=== PATIENT | male | born 1970 | race African-American/Black ===

== ENCOUNTER 2021-03-03 19:35 | Inpatient (IN) | payer MEDICARE, OTHER ==
[~2021-03-03] VITALS: Ht 182.9 cm; Wt 83.5 kg
--- NOTE | 2021-03-03 19:37 | NUR ---
PT RECEIVED FROM EMS. ON FULL CARDIAC ARREST, CPR AND BAGGING IS ONGOING PT WAS BEING ROLLED IN.
--- NOTE | 2021-03-03 19:40 | NUR ---
IV STARTED R HABD 20G
--- NOTE | 2021-03-03 19:41 | NUR ---
EPINEPHRINE 1MG IVP AND SODIUM BICARB 1 AMP IVP R HAND 20G
--- NOTE | 2021-03-03 19:42 | NUR ---
IV LINE ON RFA 18G
--- NOTE | 2021-03-03 19:43 | NUR ---
PULSE CHECK. PULSE APPRECIATED. ROSC. CPR NOT CONTINUED
--- NOTE | 2021-03-03 19:45 | NUR ---
MD SUCCESSFULLY INTUBATED PT WITH ET 7.5, 23 @ LIP, POSITIVE COLOR CHANGE FOR CO2 RETURN
--- NOTE | 2021-03-03 19:45 | NUR ---
RT NOTE LATE ENTRY: Upon arrival at bedside, Md orally intubated via ETT sz #7.5, ETT secured at 23CM at the lipline. Clear bilateral Breath sounds heard on auscultation. Color changed confirmed via CO2 detector. [facility] on noted settings per md orders. Sx'd for thick mod amt of pink tinged secretions. Alarms are set and audible. Vent plugged into red outlet. Ambu bag bedside. ABG to be taken. Waiting for Chest X ray results. Will continue to monitor closely Addendum: 03/03/21 at 2045 by GIGI QUINONES RT Amended: Links added.
--- NOTE | 2021-03-03 19:46 | NUR ---
SODIUM BICARB GIVEN IVP
--- NOTE | 2021-03-03 19:47 | NUR ---
CALCIUM CHLORIDE 1000MG IV STARTED ENDTIME 2002
--- NOTE | 2021-03-03 19:50 | NUR ---
VS. HR-81, BP-179/76, RR-18, O2 SAT 100%
--- NOTE | 2021-03-03 19:52 | NUR ---
XRAY AT BEDSIDE
[2021-03-03] MEDS ORDERED: ALBUTEROL FS 2.5 MG/3 ML VIAL.NEB NEB ONE (20:00)
[2021-03-03] MEDS ORDERED: CALCIUM CHLORIDE 1,000 MG/10 ML DISP.SYRIN IV ONE (20:00)
[2021-03-03] MEDS ORDERED: SODIUM BICARBONATE SYR 50 MEQ/50 ML DISP.SYRIN IV ONE ×3 (20:00→21:00)
[2021-03-03] MEDS ORDERED: DEXTROSE 50%-WATER 50 ML DISP.SYRIN IV ONE (20:00)
[2021-03-03] MEDS ORDERED: INSULIN REGULAR, HUMAN 100 UNIT/ML 10 ML VIAL IV ONE (20:00)
--- NOTE | 2021-03-03 20:00 | NUR ---
ET TUBE ADVANCED TO 24@ LIP PER MD ORDERED TO RT.
--- NOTE | 2021-03-03 20:00 | NUR ---
RT NOTE Late Entry: ETT advance to 24CM at the lipline per md orders. Will continue to monitor. Addendum: 03/03/21 at 2047 by GIGI QUINONES RT Amended: Links added.
--- NOTE | 2021-03-03 20:00 | NUR ---
VENT SETTING: AC18, VT550, 02 100%, +5 PEEP
[2021-03-03] MEDS ORDERED: PROPOFOL 100 ML ONE ×2 (20:03→22:52)
[2021-03-03] MEDS ORDERED: INSULIN REGULAR, HUMAN 100 UNIT/ML 10 ML VIAL ONE (20:03)
[2021-03-03] MEDS ORDERED: DEXTROSE 50%-WATER 50 ML DISP.SYRIN ONE (20:03)
[2021-03-03 20:11] LABS: BASOPHILS # (AUTO) 0.1 K/uL (0.0-0.2); BASOPHILS % (AUTO) 1.4 % (0.0-2.0); EOSINOPHILS % (AUTO) 4.7 % (0.0-6.0); HEMATOCRIT 25 % (39-51); LYMPHOCYTES # (AUTO) 3.5 K/uL (0.8-4.8); LYMPHOCYTES % (AUTO) 45.4 % (20.0-44.0); MEAN CORPUSCULAR HGB CONC 32 g/dl (31.0-36.0); MEAN CORPUSCULAR VOLUME 88 fL (80-96); MONOCYTES # (AUTO) 0.5 K/uL (0.1-1.30); MONOCYTES % (AUTO) 6.1 % (2.0-12.0); NEUTROPHILS # (AUTO) 3.3 K/uL (1.8-8.9); NEUTROPHILS % (AUTO) 42.4 % (43.0-81.0); PLATELET COUNT (AUTO) 290 K/uL (150-450); RED BLOOD CELL COUNT(AUTO) 2.85 MIL/uL (4.5-6.0); WHITE BLOOD COUNT (AUTO) 7.8 K/uL (4.3-11.0)
--- NOTE | 2021-03-03 20:15 | NUR ---
PROPOFOL STARTED PER MD ORDERED
--- NOTE | 2021-03-03 20:17 | NUR ---
D50 IVP X 1 DOSE
--- NOTE | 2021-03-03 20:18 | NUR ---
INSULIN 8 UNIT GIVEN IVP
--- NOTE | 2021-03-03 20:20 | NUR ---
ROBINSON FROM HOME TO ER BED 5. RECEIVED ON FULL CARDIAC ARREST WITH EMS DOING CPR AND BAGGING PT WAS BEING ROLLED IN. PT WAS NON RESPONSIVE. PER EMS REPORT, PT CALLED FOR SOB. PT WAS REPORTED NOT HAVING HIS DIALYSIS FOR THE PAST WEEK. PT THEN CODED ENROUTE TO HOSPITAL PER EMS. CONTINUED RESUSCITATION PER ACLS PROTOCL. MD WAS AT BEDSIDE.
--- NOTE | 2021-03-03 20:20 | NUR ---
PROPOFOL INCREASED TO 15MCG/KG/MIN. PT IS WAKING UP
[2021-03-03 20:24] LABS: ABG BASE EXCESS -10.6 mmol/L; ABG OXYGEN SATURATION 98.2 % (92.0-98.5); ABG PCO2 41.5 mmHg (35.0-45.0); ABG PH 7.215 (7.350-7.450); ABG PO2 196.1 mmHg (75.0-100.0); AaDO2 475.4 mmHg; COHb 0.5 % (0.5-1.5); MetHb 0.2 % (0.0-1.5); O2Hb 97.5 % (94.0-97.0); PEEP,BG 5 cm H2O; SITE, ABG Right Radial; VENT MODE, BG AC 18 550 100% +5; VT, ABG 550 mL
--- NOTE | 2021-03-03 20:25 | NUR ---
PROPOFOL INCREASED TO 20MCG/KG/MIN - PT IS WAKING
[2021-03-03] MEDS ORDERED: PROPOFOL 1,000 MG/100 ML BOTTLE IV ONE (20:30)
--- NOTE | 2021-03-03 20:30 | NUR ---
PROPOFOL INCREASED TO 25MCG/KG/MIN - PT IS AWAKENING AND RESTLESS
--- NOTE | 2021-03-03 20:30 | NUR ---
RT NOTE Late Entry: ABG taken and Results given to MD. Vent changes per md orders. ABG to be taken within 1 hr per md orders. Will continue to monitor. Addendum: 03/03/21 at 2047 by GIGI QUINONES RT Amended: Links added.
[2021-03-03 20:33] LABS: ALANINE AMINOTRANSFERASE 9 U/L (12-78); ALBUMIN 2.9 g/dL (3.4-5.0); ALKALINE PHOSPHATASE 202 U/L (46-116); ASPARTATE AMINOTRANSFERASE 26 U/L (15-37); BILIRUBIN,DIRECT 0.2 mg/dL (0.0-0.2); BILIRUBIN,TOTAL 0.4 mg/dL (0.2-1.0); CALCIUM, SERUM 9.7 mg/dL (8.5-10.1); CARBON DIOXIDE 17 mmol/L (21-32); CHLORIDE 100 mmol/L (98-107); GLUCOSE 172 mg/dL (74-106); SODIUM SERUM 139 mmol/L (136-145); TOTAL PROTEIN, SERUM 8.4 g/dL (6.4-8.2)
--- NOTE | 2021-03-03 20:35 | NUR ---
PROPOFOL INCREASED TO 35MCG/MIN/KG - PT IS RESTLESS AND AWAKENING
--- NOTE | 2021-03-03 20:38 | NUR ---
NEW VENT SETTING AC18, VT 600, O2 100%, +5PEEP - VT INCREASED FROM 550 TO 600
[2021-03-03 20:39] LABS: CREATININE 20.1 mg/dL (0.6-1.3); POTASSIUM 7.9 mmol/L (3.5-5.1); UREA NITROGEN, BLOOD 111 mg/dL (7-18)
--- NOTE | 2021-03-03 20:45 | NUR ---
PROPOFOL INCREASED TO 45MCG/KG/MIN - PT IS AWAKENING AND RESTLESS
--- NOTE | 2021-03-03 20:55 | NUR ---
CONTACTED SEGMENTAL WALL INSTALLER REGARDING PT AND GAVE THE CALL TO ER MD. DOCTOR TO DOCTOR IN PROGRESS.
--- NOTE | 2021-03-03 20:57 | NUR ---
ER TALKING TO DR. MARCOS REGARDING PT ADMISSION.
--- NOTE | 2021-03-03 21:00 | NUR ---
PROPOFOL INCREASED TO 55MCG/KG/MIN - PT IS AWAKKENING
--- NOTE | 2021-03-03 21:10 | NUR ---
NO NEED FOR INDWELLING CATH PER
[2021-03-03] MEDS ORDERED: SODIUM BICARBONATE SYR 50 MEQ/50 ML DISP.SYRIN ONE (21:12)
[2021-03-03] MEDS ORDERED: SODIUM POLYSTYRENE SULFONATE 15 G/60 ML BOTTLE PO ONE (21:30)
[2021-03-03] MEDS ORDERED: ZOLPIDEM TARTRATE 5 MG TABLET PO PRN (21:30)
[2021-03-03] MEDS ORDERED: Z GUARD REMEDY 2 OZ OINT TP PRN (21:30)
[2021-03-03] MEDS ORDERED: ACETAMINOPHEN 325 MG TABLET PO PRN (21:30)
[2021-03-03] MEDS ORDERED: MAG HYDROX/AL HYDROX/SIMETH 30 ML UDC PO PRN (21:30)
[2021-03-03] MEDS ORDERED: MAGNESIUM HYDROXIDE 30 ML UDC PO PRN (21:30)
--- NOTE | 2021-03-03 21:53 | NUR ---
PROPOFOL INCREASED TO 65MCG/KG/MIN D/T PT IS AWAKE.
[2021-03-03 22:26] LABS: ABG BASE EXCESS -6.6 mmol/L; ABG PCO2 32.6 mmHg (35.0-45.0); ABG PH 7.362 (7.350-7.450); ABG PO2 167.1 mmHg (75.0-100.0); AaDO2 513.3 mmHg; COHb 0.3 % (0.5-1.5); O2Hb 96.7 % (94.0-97.0); PEEP,BG 5 cm H2O; SITE, ABG Right Radial; VENT MODE, BG AC 18 600 100% +5; VT, ABG 600 mL
--- NOTE | 2021-03-03 22:32 | NUR ---
REPORT GIVEN TO RALEIGH LOUISE FOR VERENICE.
--- NOTE | 2021-03-03 22:33 | NUR ---
UNABLE TO DO MED RECON SINCE PT IS SEDATED.
[2021-03-03] MEDS: PROPOFOL 100 ML IV PRN (23:00)
--- NOTE | 2021-03-03 23:00 | NUR ---
RN/ICU-ADMITTED THIS 51 Y/O FROM ER PER ACLS PROTOCOL, ACCOMPANIED BY ER STAFF, W/ ETT TO CONTINUOUS BAGGING BY RT.NURSING FOCUS:ALTERED RESPIRATORY STATUS R/T DIAGNOSIS:ACUTE RESPIRATORY FAILURE, S/P CARDIOPULMONARY ARREST. PT. INTUBATED PER ETT #7.5 AT 24 CM AT THE LIP. W/ THE FOLLOWING SETTINGS: ON AC 18, VT-600, FIO2-100% PEEP+5. SATS-100% EKG SR W/ HR-63/MIN. BP-102/65. NGT INSERTED X1 ATTEMPT VIA RNARE CLAMPED FOR MEDS.PT. ON DIPRIVAN DRIP AT 65 MCG/KG/MIN. WILL TITRATE ACCORDINGLY PER PROTOCOL. PT. VERY AGITATED, ON ALIREZA. SOFT WRIST RESTRAINTS ON, WILL MONITOR CLOSELY PER PROTOCOL.AFEBRILE. NO S/S OF PAIN OR DISTRESS. PT. IS FOR STAT DIALYSIS, AWAITING FOR HD RN.PT. IS A FULL CODE.
--- NOTE | 2021-03-03 23:09 | NUR ---
PT TRANSPORTED TO UNIT IN [facility] WITH EMT, RT AND RN AT BEDSIDE W/ ACLS PROTOCOL. NAD NOTED DURING TRANSPORT.
[2021-03-03 23:15] VITALS: BP 92/61
[2021-03-03] MEDS: MORPHINE SULFATE INJ 2 MG/ML DISP.SYRIN IV PRN (23:21)
[2021-03-03] MEDS: NOREPINEPHRINE 8 MG in IV NS 0.9% 242 ML IV PRN (23:30)
--- NOTE | 2021-03-03 23:30 | NUR ---
RN/ICU- NOW BP-86/56, ,HR-73/MIN. LEVOPHED DRIP STARTED PER PROTOCOL AT 0.1 MCG/KG/MIN TO KEEP SBP>90. HD RNS HERE TO INITIATE HD.
[2021-03-03] MEDS ORDERED: SODIUM POLYSTYRENE SULFONATE 15 G/60 ML BOTTLE ONE (23:35)
[2021-03-03] MEDS ORDERED: NOREPINEPHRINE 8MG/250ML RTU 250 ML IV ONE (23:43)
[2021-03-04] VITALS (76 sets, daily range): BP systolic 86–156; BP diastolic 52–100
[2021-03-04] MEDS ORDERED: ALBUMIN 25% 25 GM in PREMIX 1 EA IV PRN
[2021-03-04] MEDS: NOREPINEPHRINE 8 MG in IV NS 0.9% 242 ML IV PRN (00:19)
[2021-03-04] MEDS: PROPOFOL 100 ML IV PRN ×12 (00:54→23:20)
--- NOTE | 2021-03-04 01:45 | NUR ---
RN NOTES DIALYSIS FINISHED WITH 2L REMOVED PER HD NURSE, PATIENT TOLERATED DIALYSIS WELL. VSS.
[2021-03-04] MEDS: MORPHINE SULFATE INJ 2 MG/ML DISP.SYRIN IV PRN ×4 (03:16→23:30)
[2021-03-04] MEDS ORDERED: MEROPENEM 500 MG in IV NS 0.9% 50 ML IV ONE (04:00)
[2021-03-04 04:37] LABS: BASOPHILS % (AUTO) 0.7 % (0.0-2.0); EOSINOPHILS % (AUTO) 2.8 % (0.0-6.0); HEMATOCRIT 21 % (39-51); HEMOGLOBIN 7.1 g/dL (13.5-17.5); LYMPHOCYTES # (AUTO) 0.4 K/uL (0.8-4.8); LYMPHOCYTES % (AUTO) 13.3 % (20.0-44.0); MEAN CORPUSCULAR HGB CONC 34 g/dl (31.0-36.0); MEAN CORPUSCULAR VOLUME 85 fL (80-96); MONOCYTES # (AUTO) 0.4 K/uL (0.1-1.30); MONOCYTES % (AUTO) 10.7 % (2.0-12.0); NEUTROPHILS # (AUTO) 2.4 K/uL (1.8-8.9); NEUTROPHILS % (AUTO) 72.5 % (43.0-81.0); PLATELET COUNT (AUTO) 168 K/uL (150-450); RED BLOOD CELL COUNT(AUTO) 2.47 MIL/uL (4.5-6.0); WHITE BLOOD COUNT (AUTO) 3.3 K/uL (4.3-11.0)
[2021-03-04 04:52] LABS: CALCIUM, SERUM 8.6 mg/dL (8.5-10.1); MAGNESIUM 2.4 mg/dL (1.8-2.4); POTASSIUM 5.3 mmol/L (3.5-5.1)
[2021-03-04 04:54] LABS: PHOSPHORUS 8.8 mg/dL (2.5-4.9)
[2021-03-04 04:55] LABS: CREATININE 13.4 mg/dL (0.6-1.3)
[2021-03-04 05:01] LABS: THYROID STIMULATING HORMONE 5.608 uIU/mL (0.358-3.74)
[2021-03-04] MEDS ORDERED: MEROPENEM 500 MG VIAL IV ONE (05:15)
--- NOTE | 2021-03-04 07:02 | NUR ---
RN NOTES PATIENT REMAINED SEDATED WITH DIPRIVAN . ETT AND VENT SETTING TOLERATED WELL. AFEBRILE. VSS WITHOUT PRESSOR. LEVOPHED OFF AT 4AM AND TOLERATED WELL. WITH GOOD BLOOD PRESSURE. IV ATB TOLERATED WELL. CONTINUE ON BILATERAL WRIST RESTRAINT. ISOLATION PRECAUTION R/O COVID STRICTLY OBSERVED. TURN AND REPOSITION Q2H AND PRN. KEPT PT CLEAN AND DRY. WILL CONTINUE TO MONITOR.
--- NOTE | 2021-03-04 07:05 | NUR ---
RN NOTES RECEIVED PT ON BED, INTUBATED AND SEDATED ON DIPRIVAN AT 100MCG/KG/MIN RUNNING , TOLERATING VENT SETTING WELL, O2 SAT WNL, IV SITES CLEAN,DRY AND INTACT, VSS STABLE, SR UP x3, CALL LIGHT WITHIN EASY REACH, BED LOCKED AND IN LOWEST POSITION, CONTINUE TO MONITOR.
[2021-03-04 07:57] LABS: ABG BASE EXCESS 1.5 mmol/L; ABG OXYGEN SATURATION 97.5 % (92.0-98.5); ABG PCO2 33.1 mmHg (35.0-45.0); ABG PH 7.493 (7.350-7.450); ABG PO2 103.7 mmHg (75.0-100.0); AaDO2 576.2 mmHg; COHb 0.6 % (0.5-1.5); MetHb 0.6 % (0.0-1.5); O2Hb 96.3 % (94.0-97.0); SITE, ABG Right Radial
[2021-03-04] MEDS: IPRATROPIUM NEB FS 0.5 MG/2.5 ML AMPUL.NEB NEB SCH ×5 (07:58→21:00)
[2021-03-04] MEDS: PANTOPRAZOLE 40 MG VIAL IV SCH (08:18)
[2021-03-04] MEDS ORDERED: HEPARIN SODIUM, PORCINE 5000 UNITS/1 ML VIAL SQ SCH (09:00)
[2021-03-04] MEDS ORDERED: CALCIUM CHLORIDE 1,000 MG/10 ML DISP.SYRIN IV ONE (13:19)
[2021-03-04] MEDS ORDERED: EPINEPHRINE (1:10,000) SYRINGE 1 MG/10 ML DISP.SYRIN IVP ONE (13:19)
[2021-03-04] MEDS ORDERED: SODIUM BICARBONATE SYR 50 MEQ/50 ML DISP.SYRIN IV ONE (13:19)
[2021-03-04] MEDS: EPOETIN ALFA-EPBX 4,000 UNIT/ML VIAL IV PRN (15:41)
--- NOTE | 2021-03-04 16:30 | NUR ---
RN NOTES PT RECEIVING HD AT THIS TIME, VSS STABLE CONTINUE TO MONITOR .
[2021-03-04] MEDS: MEROPENEM 500 MG in IV NS 0.9% 50 ML IV SCH (17:12)
--- NOTE | 2021-03-04 18:04 | NUR ---
Lizbeth Russo (Mother) [phone].
--- NOTE | 2021-03-04 19:18 | NUR ---
RN NOTES PT REMANINS INTUBATED AND SEDATED, NO SIGNIFICANT CHANGES NOTED ON THIS SHIFT, WILL ENDORSE TO FACILITY REHAB DIRECTOR NURSE FOR CONTINUITY OF CARE .
--- NOTE | 2021-03-04 19:30 | NUR ---
RN NOTES RECEIVED PATIENT ORALLY INTUBATED WITH ETT 7.5 AND 24 CM AT LIP WITH VETN SETTING AC 18, TV 450 FIO2 60% AND PEEP 5 . PATIET IS FULL CODE. ISOLATION PRECAUTION STRICTLY OBSERVED. SR ON MONITOR WITH S/P HD TODAY NO SIGNIFICANT CHANGES PRESENT. IV SITE ON R ARM MIDLINE INTACT AND PATENT. WITH DIPRIVAN 100 MCG/KG/MIN TURN AND REPOSITIO Q2H AND PRN PT; NEEDD; KEPT PT CLEAN COMFORTABLE
--- NOTE | 2021-03-04 21:03 | NUR ---
RT NOTE TX NOT GIVEN DUE TO PENDING PCR RESULTS. NO RESPIRATORY DISTRESS NOTED.
[2021-03-05] VITALS (48 sets, daily range): BP systolic 113–231; BP diastolic 59–115
[2021-03-05] MEDS: IPRATROPIUM NEB FS 0.5 MG/2.5 ML AMPUL.NEB NEB SCH ×6 (01:00→20:47)
[2021-03-05] MEDS: PROPOFOL 100 ML IV PRN ×5 (01:25→06:34)
--- NOTE | 2021-03-05 03:40 | NUR ---
RN NOTES FIO2 CHANGED TO 40% BY RT AND TOELRATED WELL SATURtION 100%. BEDBATH DONE, NO SIGNIFICANT CHANGESS WILL CONTINUE TO MONITOR.
[2021-03-05 04:37] LABS: BASOPHILS % (AUTO) 0.6 % (0.0-2.0); EOSINOPHILS % (AUTO) 4.5 % (0.0-6.0); HEMATOCRIT 21 % (39-51); LYMPHOCYTES # (AUTO) 0.8 K/uL (0.8-4.8); MEAN CORPUSCULAR HGB CONC 33 g/dl (31.0-36.0); MEAN CORPUSCULAR VOLUME 87 fL (80-96); MONOCYTES # (AUTO) 0.4 K/uL (0.1-1.30); MONOCYTES % (AUTO) 7.5 % (2.0-12.0); NEUTROPHILS # (AUTO) 4.2 K/uL (1.8-8.9); NEUTROPHILS % (AUTO) 73.4 % (43.0-81.0); PLATELET COUNT (AUTO) 161 K/uL (150-450); RED BLOOD CELL COUNT(AUTO) 2.36 MIL/uL (4.5-6.0); WHITE BLOOD COUNT (AUTO) 5.7 K/uL (4.3-11.0)
[2021-03-05 04:53] LABS: ALBUMIN 2.1 g/dL (3.4-5.0); BILIRUBIN,TOTAL 0.4 mg/dL (0.2-1.0); CALCIUM, SERUM 8.2 mg/dL (8.5-10.1); MAGNESIUM 2.2 mg/dL (1.8-2.4); PHOSPHORUS 7.6 mg/dL (2.5-4.9); POTASSIUM 5.1 mmol/L (3.5-5.1); TOTAL PROTEIN, SERUM 6.7 g/dL (6.4-8.2)
[2021-03-05 05:04] LABS: CREATININE 9.4 mg/dL (0.6-1.3)
[2021-03-05 05:14] LABS: HEMOGLOBIN 6.8 g/dL (13.5-17.5)
[2021-03-05] MEDS: MEROPENEM 500 MG in IV NS 0.9% 50 ML IV SCH ×2 (05:31→19:53)
[2021-03-05 06:08] LABS: EOSINOPHILS % (MANUAL) 4 % (0-4); LYMPHOCYTES % (MANUAL) 11 % (16-48); MONOCYTES % (MANUAL) 6 % (0-11.0); NEUTROPHILS % (MANUAL) 79 (42-76)
--- NOTE | 2021-03-05 06:49 | NUR ---
RN NOTES NO SIGNIFICANT CHANGES THROUGHOUT THE SHIFT. REMAINED INTUBATED AND THE SAME VENT SETTING FIO2 40% TOLERATED WELL SATURATION REMAINED 100% CONTINUE ON PROPOFOL 100 MCG/KG/MIN TOLERATED WELL. AFEBRILE. VSS. ISOLATION PRECAUTION DUE TO PENDING COVID PCR STRICTLY OBSERVED. KEPT PT CLEAN AND DRY. SAFETY MEASURES PROVIDED. KEPT PT CLEAN AND COMFORTABLE IN BED. WILL ENDORSED CONTINUITY OFCSARE TO AM NURSE.
--- NOTE | 2021-03-05 07:30 | NUR ---
RESPIRATORY CARE SPECIALIST OPENING NOTE VENT PT ORALLY INTUBATED WITH ETT 7.5 AND 24 CM AT LIP, SETTINGS: AC 18, TV 450 FIO2 40% AND PEEP 5. PT PCR PENDING, ISOLATION PRECAUTIONS IN PLACE. SR ON MONITOR, HR IN 80s. PT IV LISE MIDLINE INTACT AND CURRENTLY INFUSING DIPRIVAN @ 100 MCG/KG/MIN AND TKO. PT RT HAND #20 AND RFA #20, ALL LINES FLUSHED AND INTACT, NO S/S OF INFECTION/INFILTRATION. PT SKIN IS INTACT, WILL CONT TO MONITOR Addendum: 03/05/21 at 1021 by PATRICIA JAMISON RN NGT AUSCULTATED FOR POSITIVE PLACEMENT, NO RESIDUALS NOTED
[2021-03-05] MEDS ORDERED: DC PROPOFOL WHEN EXTUBATED XX PRN (08:00)
--- NOTE | 2021-03-05 08:00 | NUR ---
RN NOTE PT BILAT SOFT WRIST RESTRAINTS IN PLACE, BILAT CMS INTACT, WILL CONT TO MONITOR
[2021-03-05] MEDS: PANTOPRAZOLE 40 MG VIAL IV SCH (08:39)
--- NOTE | 2021-03-05 09:15 | NUR ---
RN NOTE SEDATION VACATION STARTED @ 1845, PT IMMEDIATELY AWAKENED. PT ABLE TO FOLLOW COMMANDS OF EYE OPENING/CLOSING, BILAT HAND FPGA DESIGN ENGINEER, AND BILAT MOVING OF TOES WHEN PROMPTED. ABG TO BE DRAWN SHORTLY
[2021-03-05 09:27] LABS: ABG BASE EXCESS 1.1 mmol/L; ABG OXYGEN SATURATION 98.1 % (92.0-98.5); ABG PCO2 44.7 mmHg (35.0-45.0); ABG PH 7.388 (7.350-7.450); ABG PO2 120.5 mmHg (75.0-100.0); AaDO2 113.3 mmHg; COHb 0.8 % (0.5-1.5); MetHb 0.2 % (0.0-1.5); O2Hb 97.1 % (94.0-97.0); SITE, ABG Right Radial
--- NOTE | 2021-03-05 09:44 | NUR ---
RT PER DR URIBE PATIENT WAS WEANED ON VENT AND EXTUBATED. PLACED ON 5L N/C. PATIENT AWAKE, RESPONSIVE, WILL CONT TO MONITOR CLOSELY. RALEIGH CHUNG AWARE Addendum: 03/05/21 at 0956 by ANDREI GARNER RT Amended: Links added.
--- NOTE | 2021-03-05 09:45 | NUR ---
RN NOTE PT EXTUBATED, PLACED ON NC 5L, SPO2 CURRENTLY 100%, NO SOB OR RESP DISTRESS NOTED. PT ASLEEP. WILL CONT TO MONITOR
--- NOTE | 2021-03-05 10:30 | NUR ---
RN NOTE PT A/Ox2 TO NAME/ AND PLACE. PT INFORMED ON HIS STATUS AND EVENTS LEADING UP TO NOW. WILL KEEP RESTRAINTS ON UNTIL PT MORE AWARE OF SITUATION. PT SEEN CRYING. NO SOB OR RESP DISTRESS NOTED, SPO2 98%
--- NOTE | 2021-03-05 11:00 | NUR ---
RN NOTE DR KULKARNI INFORMED OF PT 0500 HGB 6.8 AND 1015 HGB REDRAW OF 7.0, CREAT 9.4
--- NOTE | 2021-03-05 11:00 | NUR ---
RN NOTE PT REMOVED NGT, BILAT SOFT WRIST RESTRAINTS REMAIN ON, BILAT CMS INTACT. WILL CONT TO MONITOR
[2021-03-05] MEDS: diphenhydrAMINE HCL 25 MG CAPSULE PO PRN ×2 (13:46→21:29)
--- NOTE | 2021-03-05 15:00 | NUR ---
RN NOTE PT HYPERTENSIVE, MESSAGED DR KULKARNI, AWAITING ORDERS
[2021-03-05] MEDS: hydrALAZINE HCL 50 MG TABLET PO SCH (17:58)
[2021-03-05] MEDS: SEVELAMER CARBONATE 800 MG TABLET PO SCH (17:58)
--- NOTE | 2021-03-05 18:33 | NUR ---
RN N OTE PT TRANSFUSED 1 UNIT PRBC DURING DIALYSIS, NO ADVERSE REACTIONS NOTED, PT STILL BEING DIALYZED. WILL CONT TO MONITOR
--- NOTE | 2021-03-05 19:15 | NUR ---
RN NOTE HD FINISHED, PT TOLERATED WELL. 2.2L REMOVED
--- NOTE | 2021-03-05 19:20 | NUR ---
RN CLOSING NOTE PT FINISHED HD, TOLERATED WELL, BP STILL HIGH 190s/100s, DR KULKARNI PLACED ORDER FOR CLONIDINE 0.3 MG PATCH, WILL ENDORSE TO PLATING TANK OPERATOR APPRENTICE NURSE TO ADMIN WELL 1700 MER[address] IV ABX. PT NO LONGER AGITATED, MUCH MORE CALM AND COOPERATIVE, NO LONGER ON RESTRAINTS. PT ATE DINNER WITH NO ISSUES. PT TO HAVE ASSEMBLY LINE INSPECTOR CONSULT TOMORROW FOR TRANSPO ISSUES REGARDING DIALYSIS. ALL PT SAFETY PRECAUTIONS IN PLACE, VERENICE ENDORSED TO PLATING TANK OPERATOR APPRENTICE NURSE
--- NOTE | 2021-03-05 19:20 | NUR ---
ICU/MINIATURE TRAIN DRIVER RECIEVED REPORT FROM DAY RN. SEE FLOWSHEET FOR ASSESSMENT. THERE IS NO IV'S TO ADDRESS ON IV SPREAD SHEET. PT APPEARS TO BE ALERT WITH SOME RESTLESS BEHAVIOR. PT IS TOLERATING N/C WELL, WITH SATURATION 95-99%. CALL LIGHT WITHIN REACH. WILL CONTINUE TO MONITOR THIS PT.
[2021-03-05] MEDS: MORPHINE SULFATE INJ 2 MG/ML DISP.SYRIN IV PRN (19:54)
--- NOTE | 2021-03-05 20:05 | NUR ---
ICU/ENGRAVING PLATE MAKER PT COMPLAINED ABOUT PAIN TO THE LEFT HIP, NOTIFED CHARGE NURSE WHO THEN GAVE MORPHINE IVP PRN. WILL CONTINUE TO MONITOR THIS PT'S PAIN
[2021-03-05] MEDS: CLONIDINE HCL 0.3 MG/24H PTWK 1 EA PATCH TD SCH (20:46)
--- NOTE | 2021-03-05 21:00 | NUR ---
ICU/PASTRY ARTIST TOBY WAS PLACED ON PT FOR HIS HIGH BLOOD PRESSURE. THIS IS A WEEKLY PATCH. PT MADE AWARE NOT TO TAKE THIS OFF.
[2021-03-05] MEDS: EPOETIN ALFA-EPBX 4,000 UNIT/ML VIAL IV PRN (21:13)
--- NOTE | 2021-03-05 21:30 | NUR ---
ICU/SIGNALS INTELLIGENCE SUPERINTENDENT PT IS POST HD, EPOETIN WAS GIVEN BY INSURANCE PREMIUM AUDITOR NURSE.
--- NOTE | 2021-03-05 22:00 | NUR ---
ICU/HALAL MEAT PACKER PT COMPLAINED ABOUT ITCHING, GAVE PRN BENADRYL FOR THIS. PT IS POST HD TONIGHT, 2.2 LITERS WAS REMOVED.
--- NOTE | 2021-03-05 23:47 | NUR ---
ICU/HOLDER PILE DRIVING PT'S BLOOD PRESSURE IS IN THE 180'S TO 190'S NO PRN MEDICATION, CALLED THE DR EVP GENERAL COUNSEL. HYDRALAZINE 10NG IVP X1 NOW ORDER WAS RECIEVED. ALSO PT COMPLAINED ABOUT HEADACHE GOT ORDER FOR TYLENOL 650MG FOR THIS. ORDERS WERE RECIEVED AND CARRIED OUT.
[2021-03-06] VITALS (23 sets, daily range): BP systolic 150–193; BP diastolic 78–114
[2021-03-06] MEDS ORDERED: ACETAMINOPHEN 325 MG TABLET PO PRN
[2021-03-06] MEDS: hydrALAZINE HCL IV 20 MG VIAL IV PRN ×2 (00:19→08:40)
--- NOTE | 2021-03-06 01:15 | NUR ---
ICU/IRON WORKER APPRENTICE PT APPEARS TO HAVE A COUGH FROM THROAT IRRITANT FROM BEING INTUBATED. PT GOT RT TXT. WILL MONITOR THIS PT. PT IS CURRENTLY ON 2 LITERS N/C WITH SATURATION AT 97%. WILL MONITOR THIS PT AND HIS SATURATION.
[2021-03-06] MEDS: IPRATROPIUM NEB FS 0.5 MG/2.5 ML AMPUL.NEB NEB SCH ×6 (01:24→23:20)
[2021-03-06] MEDS: MORPHINE SULFATE INJ 2 MG/ML DISP.SYRIN IV PRN ×3 (02:19→19:55)
--- NOTE | 2021-03-06 02:28 | NUR ---
ICU/DIRECTOR OF OCCUPATIONAL THERAPY PT COMPLAINED ABOUT PAIN TO THE LEFT THIGH, NOTIFED CHARGE NURSE WHO THEN GAVE MORPHINE 2MG IVP PRN FOR PAIN RATED 8/10. CALL LIGHT WITHIN REACH. WILL CONTINUE TO MONITOR THIS PT.
[2021-03-06] MEDS: diphenhydrAMINE HCL 25 MG CAPSULE PO PRN (03:30)
[2021-03-06] MEDS: MEROPENEM 500 MG in IV NS 0.9% 50 ML IV SCH (04:19)
[2021-03-06 04:33] LABS: BASOPHILS % (AUTO) 0.5 % (0.0-2.0); EOSINOPHILS % (AUTO) 4.1 % (0.0-6.0); HEMATOCRIT 25 % (39-51); LYMPHOCYTES % (AUTO) 16.4 % (20.0-44.0); MEAN CORPUSCULAR HGB CONC 33 g/dl (31.0-36.0); MEAN CORPUSCULAR VOLUME 86 fL (80-96); MONOCYTES # (AUTO) 0.7 K/uL (0.1-1.30); MONOCYTES % (AUTO) 12.3 % (2.0-12.0); NEUTROPHILS # (AUTO) 3.9 K/uL (1.8-8.9); NEUTROPHILS % (AUTO) 66.7 % (43.0-81.0); PLATELET COUNT (AUTO) 193 K/uL (150-450); RED BLOOD CELL COUNT(AUTO) 2.83 MIL/uL (4.5-6.0); WHITE BLOOD COUNT (AUTO) 5.8 K/uL (4.3-11.0)
[2021-03-06] MEDS: LORAZEPAM INJ 2 MG/ML VIAL IV PRN (04:37)
[2021-03-06 04:55] LABS: ALBUMIN 2.7 g/dL (3.4-5.0); BILIRUBIN,TOTAL 0.4 mg/dL (0.2-1.0); CALCIUM, SERUM 8.6 mg/dL (8.5-10.1); CREATININE 7.4 mg/dL (0.6-1.3); MAGNESIUM 2.2 mg/dL (1.8-2.4); PHOSPHORUS 6.2 mg/dL (2.5-4.9); POTASSIUM 4.1 mmol/L (3.5-5.1)
--- NOTE | 2021-03-06 05:00 | NUR ---
ICU/PONY ROLL FINISHER PT APPEARS TO BE AGITATED, C/O OF HAVING A HARD TIME SLEEPING. NOTIFED REAL ESTATE BROKER ASSOCIATE NURSE WHO THEN GAVE ATIVAN 1MG IVP PRN. CALL LIGHT WITHIN REACH. WILL MONITOR HIS PT.
--- NOTE | 2021-03-06 05:49 | NUR ---
ICU/CAR REPOSSESSOR PT'S BLOOD PRESSURE CONTINUES TO BE ELEVATED, CALLED PER DIEM RN JEAN CARLOS FOR PRN, SAID IN 1 HOUR IF BP IS STILL ELEVATED THEN GIVEN ONE TIME ORDER FOR CLONIDINE 0.2 IVP. THIS ORDER WAS NOTED AND CARRIED OUT.
--- NOTE | 2021-03-06 06:25 | NUR ---
ICU/LABOR CONCILIATOR BLOOD PRESSURE IS 153/99, THERE WAS NO NEED TO PUT IN THE ORDER FOR CLONIDINE 0.2IVP DUE TO THE FACT THE BLOOD PRESSURE CAME DOWN.
--- NOTE | 2021-03-06 07:00 | NUR ---
RN NOTES RECEIVED PT ON BED, DRAWZY AND SLEEPY, FOLLOWS COMMAND, ON 5L O2 N/C , O2 SAT WNL, ON TELE SR HR IN 90'S , SBP IN 170'S , AWARE, IV SITES CLEAN, DRY AND INTACT, SR UP x3, CALL LIGHT WITHIN EASY REACH, BED LOCKED AND IN LOWEST POSITION, CONTINUE TO MONITOR
--- NOTE | 2021-03-06 07:19 | NUR ---
ICU/ARMHOLE RAISER LOCKSTITCH REPORT GIVEN TO DAY NURSE
[2021-03-06] MEDS: hydrALAZINE HCL 50 MG TABLET PO SCH ×3 (08:05→16:03)
[2021-03-06] MEDS: PANTOPRAZOLE 40 MG VIAL IV SCH (08:05)
[2021-03-06] MEDS: SEVELAMER CARBONATE 800 MG TABLET PO SCH ×3 (08:05→17:20)
--- NOTE | 2021-03-06 09:30 | NUR ---
RN NOTES SBP IS IN 190'S AND 180'S, DR MARTINES NOTIFIED, NEW ORDER RECEIVED, CONTINUE TO MONITOR .
[2021-03-06 09:41] LABS: ABG BASE EXCESS 3.6 mmol/L; ABG OXYGEN SATURATION 93.6 % (92.0-98.5); ABG PCO2 45.6 mmHg (35.0-45.0); ABG PH 7.415 (7.350-7.450); ABG PO2 72.5 mmHg (75.0-100.0); AaDO2 73.3 mmHg; COHb 0.8 % (0.5-1.5); MetHb 0.2 % (0.0-1.5); O2Hb 92.7 % (94.0-97.0); SITE, ABG Right Radial; VENT MODE, BG nasal cannula
[2021-03-06] MEDS ORDERED: LABETALOL HCL IV 100MG VIAL IV ONE (10:00)
--- NOTE | 2021-03-06 11:00 | NUR ---
RN NOTES BP 155/90, PT IS TRANSFERRED TO ROOM 310-1 TELE STATUS VIA ACLS PROTOCOL WITH ALL HIS BELONGINGS IN STABLE CONDITION .REPORT GIVEN TO DUSTIN STOREY FOR CONTINUITY OF CARE.
--- NOTE | 2021-03-06 11:54 | NUR ---
[employer]INESS INTER[employer] NOTE RECEIVED PATIENT IN BED FROM ICU, PATIENT IS A/O X2. PATIENT IS BREATHING EVENLY AND NONLABORED ON 3LPM VIA NASAL CANNULA. PATIENT DENIED PAIN OR DISCOMFORT AT THIS TIME. PATIENTS BLOOD PRESSURE 180/105, HR 91, OR SAT 99% ON 3LPM VIA NASAL CANNULA. MD NOTIFIED OF BP,STATED TO GIVE 12 PM HYDRALAZINE THEN RECHECK. PATIENT WAS ORIENTED TO THE ROOM AND HOW TO USE THE CALL LIGHT. SAFETY MEASURES IN PLACE BED LOW LOCK AND CALL LIGHT WITHIN REACH WILL CONTINUE TO MONITOR.
[2021-03-06] MEDS: LABETALOL HCL (100MG) 100 MG TABLET PO SCH (17:21)
--- NOTE | 2021-03-06 18:45 | NUR ---
ADVERTISING CONSULTANT CLOSING NOTE PATIENT IN BED PATIENT IS A/O X2. PATIENT IS BREATHING EVENLY AND NONLABORED ON 3LPM VIA NASAL CANNULA. PATIENT DENIED PAIN OR DISCOMFORT AT THIS TIME. PATIENT HAS IV ACCESS ON RFA # 20 GAUGE AND LISE MIDLINE PATENT AND INTACT. PATIENT IS ON TELE MONITOR SHOWING NSR WITH EPISODES OF SINUS TACHY. ALL MEDICATIONS GIVEN ORDERED. SAFETY MEASURES IN PLACE BED LOW LOCK AND CALL LIGHT WITHIN REACH WILL ENDORSE TO ONCOMING SHIFT
[2021-03-07] VITALS: BP 183/99
[2021-03-07] MEDS: MORPHINE SULFATE INJ 2 MG/ML DISP.SYRIN IV PRN ×8 (00:11→21:04)
[2021-03-07] MEDS: ONDANSETRON HCL/PF 4 MG/2 ML VIAL IVP PRN ×2 (01:51→21:08)
[2021-03-07] MEDS: IPRATROPIUM NEB FS 0.5 MG/2.5 ML AMPUL.NEB NEB SCH ×6 (02:35→20:02)
[2021-03-07 04:00] VITALS: BP 181/99
--- NOTE | 2021-03-07 04:28 | NUR ---
CHIEF OF FIELD OPERATIONS NOTES PATIENT REPORTED TO HAVE PAIN ON THE CHEST AND HEAD AT THE SCALE OF 9/10. MORPHINE SULFATE 2MG IV GIVEN FOR PAIN.
--- NOTE | 2021-03-07 06:50 | NUR ---
TUBE CUTTER OPERATOR NOTES AWAKE & RESPONSIVE. NOT IN ANY DISTRESS. NO SOB NOTED. DENIES ANY PAIN OR DISCOMFORT AT THIS TIME. ON TELE SR @ 92 WITH IV-HL PATENT & INTACT. AM CARE DONE. MONITORED ACCORDINGLY. CALL LIGHT WITHIN REACH. BED IN LOWEST POSITION. SR UP X 2 FOR SAFETY. WILL ENDORSE TO NEXT SHIFT.
[2021-03-07 07:12] LABS: BASOPHILS % (AUTO) 0.5 % (0.0-2.0); EOSINOPHILS % (AUTO) 4.2 % (0.0-6.0); HEMATOCRIT 22 % (39-51); HEMOGLOBIN 7.2 g/dL (13.5-17.5); MEAN CORPUSCULAR HGB CONC 33 g/dl (31.0-36.0); MEAN CORPUSCULAR VOLUME 87 fL (80-96); MONOCYTES # (AUTO) 0.7 K/uL (0.1-1.30); NEUTROPHILS # (AUTO) 3.6 K/uL (1.8-8.9); NEUTROPHILS % (AUTO) 65.3 % (43.0-81.0); PLATELET COUNT (AUTO) 176 K/uL (150-450); RED BLOOD CELL COUNT(AUTO) 2.54 MIL/uL (4.5-6.0); WHITE BLOOD COUNT (AUTO) 5.5 K/uL (4.3-11.0)
[2021-03-07 07:34] LABS: ALBUMIN 2.5 g/dL (3.4-5.0); BILIRUBIN,TOTAL 0.4 mg/dL (0.2-1.0); CALCIUM, SERUM 8.3 mg/dL (8.5-10.1); MAGNESIUM 2.2 mg/dL (1.8-2.4); POTASSIUM 4.1 mmol/L (3.5-5.1); TOTAL PROTEIN, SERUM 7.3 g/dL (6.4-8.2)
--- NOTE | 2021-03-07 07:55 | NUR ---
RN OPENING NOTES Patient seen comfortably lying in bed, on oxygen via nasal cannula at 3LPM, no SOB, no respiratory distress, no c/o pain or discomfort at this time. Dialysis site covered with dressing, no bleeding noted. Safety precautions maintained, brakes locked, side rails up X 2, call light left within reach, will monitor closely for any changes.
[2021-03-07 08:24] VITALS: BP 180/102
[2021-03-07] MEDS: LABETALOL HCL (100MG) 100 MG TABLET PO SCH ×2 (08:51→21:23)
[2021-03-07] MEDS: SEVELAMER CARBONATE 800 MG TABLET PO SCH ×3 (08:51→17:10)
[2021-03-07] MEDS: PANTOPRAZOLE 40 MG VIAL IV SCH (08:52)
[2021-03-07] MEDS: hydrALAZINE HCL 50 MG TABLET PO SCH ×3 (08:52→17:10)
[2021-03-07 09:09] LABS: CREATININE 9.7 mg/dL (0.6-1.3)
[2021-03-07 09:10] LABS: PHOSPHORUS 8.6 mg/dL (2.5-4.9)
[2021-03-07] MEDS: LISINOPRIL (10MG) 10 MG TABLET PO SCH (12:04)
[2021-03-07 12:21] VITALS: BP 190/108
[2021-03-07] MEDS: NIFEdipine XL (30MG) 30 MG TAB PO SCH (15:46)
[2021-03-07 16:01] VITALS: BP 172/92
--- NOTE | 2021-03-07 18:24 | NUR ---
RN CLOSING NOTES Patient in bed, no SOB, no respiratory distress, on oxygen via nasal cannula at 3LPM. Dialysis site covered with dry dressing, no bleeding noted. Pain medication given when non pharmacological measures ineffective, all due meds given, tolerating well. Safety precautions maintained, brakes locked, side rails up X 2, call light left within reach, will endorse to next shift for continuity of care.
--- NOTE | 2021-03-07 19:38 | NUR ---
MS TELE OPENING NOTES: RECEIVED PATIENT AWAKE IN BED , WITH ONGOING HEMODIALYSIS, ON STABLE CONDITION, POST MECH VENT EXTUBATED ON 3 LPM OF OXYGEN NO SOB NOTED, PATIENT ON RENAL DIET, HD SITE AT [facility] AV [facility]UN[facility], WITH MID LINE AT [facility] BED IN LOW POSITION, CALL LIGHTS WITHIN REACH, NO COMPLAIN OF PAIN AND DISCOMFORT AT THIS TIME, ON TELE MONITORING WITH READING OF SR -85, PATIENT KEPT CLEAN AND DRY, WILL CONTINUE TO MONITOR.
[2021-03-07 20:00] VITALS: BP 177/99
[2021-03-08] VITALS: BP 165/88
[2021-03-08] MEDS: IPRATROPIUM NEB FS 0.5 MG/2.5 ML AMPUL.NEB NEB SCH ×8 (00:22→23:32)
[2021-03-08] MEDS: MORPHINE SULFATE INJ 2 MG/ML DISP.SYRIN IV PRN ×5 (02:19→19:48)
[2021-03-08 04:00] VITALS: BP 154/73
--- NOTE | 2021-03-08 06:58 | NUR ---
TELE CLOSING NOTES PATIENT SLEEP IN BED COMFORTABLY, AROUSABLE TO STIMULI, BED IN LOW POSITION, CALL LIGHTS WITHIN REACH, NO COMPLAIN OF PAIN AND DISCOMFORT AT THIS TIME, DIALYSIS AT [facility] AV [facility], NO BLEEDING WAS OBSERVED, ON O2 INHALATION AT 2LPM INFUSING WELL,ON TELE MONITORING, PATIENT KEPT CLEAN AND DRY, ALL NEEDS MET, ENDORSE TO INCOMING SHIFT.
[2021-03-08] MEDS: ALBUTEROL FS 2.5 MG/3 ML VIAL.NEB NEB SCH (07:14)
[2021-03-08] MEDS: SEVELAMER CARBONATE 800 MG TABLET PO SCH ×3 (07:39→17:27)
[2021-03-08] MEDS: PANTOPRAZOLE 40 MG TABLET.DR PO SCH (07:39)
--- NOTE | 2021-03-08 07:56 | NUR ---
TELE/RN OPENING NOTES RECEIVED PATIENT ON BED AWAKE ALERT AND ORIENTED X3-4. PATIENT IS ON 3L OXYGEN VIA NASAL CANNULA SATURATION 100%. PATIENT IN NO APPARENT RESPIRATORY DISTRESS NOTED. NO COMPLAINED OF PAIN NOTED AT THIS TIME. TELE MONITOR READING SINUS RHYTHM 86 BPM. WILL CONTINUE TO MONITOR.
[2021-03-08 08:00] VITALS: BP 162/99
[2021-03-08] MEDS: LISINOPRIL (10MG) 10 MG TABLET PO SCH (08:22)
[2021-03-08] MEDS: LABETALOL HCL (100MG) 100 MG TABLET PO SCH ×2 (08:22→20:58)
[2021-03-08] MEDS: NIFEdipine XL (30MG) 30 MG TAB PO SCH (08:22)
[2021-03-08] MEDS: hydrALAZINE HCL 50 MG TABLET PO SCH ×3 (08:23→17:28)
[2021-03-08 13:00] VITALS: BP 116/70
[2021-03-08 16:14] VITALS: BP 164/100
[2021-03-08] MEDS: MINOXIDIL (2.5MG) 2.5 MG TABLET PO SCH (18:06)
--- NOTE | 2021-03-08 19:23 | NUR ---
TELE/RN CLOSING NOTES RECEIVED PATIENT ON BED AWAKE ALERT AND ORIENTED X 3-4. PATIENT IS ON 3 L OXYGEN VIA NASAL CANNULA. PATIENT IN NO APPARENT RESPIRATORY DISTRESS NOTED. NO COMPLAINED OF PAIN NOTED AT THIS TIME. TELE MONITOR READING SINUS RHYTHM 86 BPM. SEEN AND EXAMINED BY MD WITH ORDERS MADE AND CARRIED OUT. ALL DUE MEDICATION WAS GIVEN. IV ACCESS AT RIGHT UPPER ARM MIDLINE #18G,RIGHT FOREARM # 20 G PATENT AND INTACT. SAFETY PRECAUTION WAS IN PLACED. BED IN LOWEST POSITION AND LOCKED. CALL LIGHT WITHIN REACH. WILL ENDORSED TO DIRECT MAIL CLERK FOR VERENICE.
--- NOTE | 2021-03-08 19:30 | NUR ---
[employer] OPENING NOTES RECEIVED PATIENT IN BED. A/OX4. NO S/S OF APPARENT DISTRESS TOLERATING ROOM AIR. C/O PAIN OF 9/10 -- WILL MANAGE WITH MEDICATION. NO FLUIDS RUNNING AT THIS TIME. AV SHUNT NOTED ON LEFT UPPER EXTREMITY. KNITTER WIRE MESH READING SINUS RHYTHM. SAFETY IN PLACE. WILL CONT. TO MONITOR.
--- NOTE | 2021-03-08 19:48 | NUR ---
telecine operator note patient c/o 03/21 pain. given morphine 2mg PRN. will reassess.
[2021-03-08 20:00] VITALS: BP 155/85
[2021-03-09] VITALS: BP 154/88
[2021-03-09] MEDS: MORPHINE SULFATE INJ 2 MG/ML DISP.SYRIN IV PRN ×5 (02:39→18:34)
--- NOTE | 2021-03-09 02:43 | NUR ---
telemetry tech note patient c/o 02/18 pain. given morphine 2mg PRN at this time. will reassess.
[2021-03-09] MEDS: IPRATROPIUM NEB FS 0.5 MG/2.5 ML AMPUL.NEB NEB SCH ×6 (03:30→23:14)
[2021-03-09 04:00] VITALS: BP 136/83
--- NOTE | 2021-03-09 06:43 | NUR ---
senior telecommunications technician note patient c/o 02/18 pain. Given morphine 2mg at this time.
[2021-03-09 06:54] LABS: BASOPHILS % (AUTO) 0.5 % (0.0-2.0); EOSINOPHILS % (AUTO) 5.3 % (0.0-6.0); HEMATOCRIT 22 % (39-51); HEMOGLOBIN 7.3 g/dL (13.5-17.5); LYMPHOCYTES # (AUTO) 1.2 K/uL (0.8-4.8); LYMPHOCYTES % (AUTO) 26.9 % (20.0-44.0); MEAN CORPUSCULAR HGB CONC 33 g/dl (31.0-36.0); MEAN CORPUSCULAR VOLUME 87 fL (80-96); MONOCYTES # (AUTO) 0.6 K/uL (0.1-1.30); MONOCYTES % (AUTO) 12.6 % (2.0-12.0); NEUTROPHILS # (AUTO) 2.5 K/uL (1.8-8.9); NEUTROPHILS % (AUTO) 54.7 % (43.0-81.0); PLATELET COUNT (AUTO) 197 K/uL (150-450); RED BLOOD CELL COUNT(AUTO) 2.57 MIL/uL (4.5-6.0); WHITE BLOOD COUNT (AUTO) 4.5 K/uL (4.3-11.0)
[2021-03-09 07:08] LABS: ALBUMIN 2.8 g/dL (3.4-5.0); BILIRUBIN,TOTAL 0.4 mg/dL (0.2-1.0); CALCIUM, SERUM 8.2 mg/dL (8.5-10.1); MAGNESIUM 2.1 mg/dL (1.8-2.4); PHOSPHORUS 7.7 mg/dL (2.5-4.9); POTASSIUM 4.5 mmol/L (3.5-5.1); TOTAL PROTEIN, SERUM 7.7 g/dL (6.4-8.2)
[2021-03-09 07:13] LABS: CREATININE 10.3 mg/dL (0.6-1.3)
--- NOTE | 2021-03-09 07:18 | NUR ---
teletype operator closing patient a/ox4. no s/s of apparent distress. pain managed with medications. no fluids running at this time. safety kept in place the whole shift. no significant change since last shift. report given to alvin for cont. of care.
--- NOTE | 2021-03-09 07:28 | NUR ---
BULK MATERIALS HANDLING PLANT OPERATOR OPENING NOTE RECEIVED PATIENT IN BED PATIENT IS A/O X3 . PATIENT IS BREATHING EVENLY AND NONLABORED ON 3LPM VIA NASAL CANNULA. NO SIGNS OF DISTRESS NOTED PATIENT DENIED PAIN OR DISCOMFORT AT THIS TIME. PATIENT HAS IV ACCESS ON RFA # 20 GAUGE AND LISE MIDLINE PATENT AND INTACT. PATIENT IS ON TELE MONITOR SHOWING NSR WITH EPISODES OF SINUS TACHY. SAFETY MEASURES IN PLACE BED LOW LOCK AND CALL LIGHT WITHIN REACH WILL CONTINUE TO MONITOR
[2021-03-09] MEDS: SEVELAMER CARBONATE 800 MG TABLET PO SCH ×3 (08:17→17:33)
[2021-03-09] MEDS: PANTOPRAZOLE 40 MG TABLET.DR PO SCH (08:17)
[2021-03-09] MEDS: NIFEdipine XL (30MG) 30 MG TAB PO SCH (08:19)
[2021-03-09] MEDS: MINOXIDIL (2.5MG) 2.5 MG TABLET PO SCH (08:19)
[2021-03-09] MEDS: LISINOPRIL (10MG) 10 MG TABLET PO SCH (08:19)
[2021-03-09] MEDS: LABETALOL HCL (100MG) 100 MG TABLET PO SCH ×2 (08:20→20:52)
[2021-03-09] MEDS: hydrALAZINE HCL 50 MG TABLET PO SCH ×3 (08:20→17:34)
--- NOTE | 2021-03-09 10:38 | NUR ---
RN NOTE PATIENT COMPLAINED OF SEVERE PAIN 03/21. PATIENT ASKED FOR PRN PAIN MEDICATION. VITALS WNL, WILL GIVE PRN PAIN MEDICATION
--- NOTE | 2021-03-09 14:30 | NUR ---
RN NOTE PATIENT COMPLAINED OF SEVERE PAIN 03/21. PATIENT ASKED FOR PRN PAIN MEDICATION. VITALS WNL, WILL GIVE PRN PAIN MEDICATION
[2021-03-09] MEDS: diphenhydrAMINE HCL 25 MG CAPSULE PO PRN ×2 (14:59→22:18)
--- NOTE | 2021-03-09 18:30 | NUR ---
RN NOTE PATIENT COMPLAINED OF SEVERE PAIN 03/21. PATIENT ASKED FOR PRN PAIN MEDICATION. VITALS WNL, WILL GIVE PRN PAIN MEDICATION
--- NOTE | 2021-03-09 18:34 | NUR ---
CASHIER TUBE ROOM CLOSING NOTE PATIENT IN BED PATIENT IS A/O X3 . PATIENT IS BREATHING EVENLY AND NONLABORED ON 3LPM VIA NASAL CANNULA. NO SIGNS OF DISTRESS NOTED PATIENT DENIED PAIN OR DISCOMFORT AT THIS TIME. PATIENT HAS IV ACCESS ON RFA # 20 GAUGE AND LISE MIDLINE PATENT AND INTACT. PATIENT IS ON TELE MONITOR SHOWING NSR WITH EPISODES OF SINUS TACHY. ALL MEDICATIONS GIVEN ORDERED. SAFETY MEASURES IN PLACE BED LOW LOCK AND CALL LIGHT WITHIN REACH WILL ENDORSE TO ONCOMING SHIFT
--- NOTE | 2021-03-09 19:26 | NUR ---
FOOTWEAR SALES REPRESENTATIVE OPENING RECEIVED PATIENT SITTING IN BED USING HIS CELLPHONE. NO S/S OF APPARENT DISTRESS -- ON AND OFF IN OXYGEN. NO C/O PAIN AT THIS TIME. NO FLUIDS RUNNING AT THIS TIME. TELE MONITOR READING SR 94. NO NEEDS AT THIS TIME. SAFETY IN PLACE. WILL CONTINUE TO MONITOR.
--- NOTE | 2021-03-09 22:18 | NUR ---
telecommunications line installer note patient c/o severe itching. given benadryl 25 mg.
[2021-03-10] MEDS: MORPHINE SULFATE INJ 2 MG/ML DISP.SYRIN IV PRN ×5 (00:06→20:17)
--- NOTE | 2021-03-10 00:06 | NUR ---
television installer note patient c/o 02/18 pain. given iv morphine 2mg at this time. will reassess.
[2021-03-10 00:39] VITALS: BP 160/90
--- NOTE | 2021-03-10 00:46 | NUR ---
POSSUM TRAPPER NOTE PT C/O GENERALIZED ITCHINESS, NO RASHES NOTED. ADMIN BENADRYL ORDERED. WILL CONTINUE TO REASSESS.
[2021-03-10] MEDS: IPRATROPIUM NEB FS 0.5 MG/2.5 ML AMPUL.NEB NEB SCH ×5 (03:53→20:03)
[2021-03-10 04:41] VITALS: BP 158/94
--- NOTE | 2021-03-10 05:03 | NUR ---
telesales consultant note patient c/o of severe pain 04/20. given morphine 2mg. will reassess.
[2021-03-10] MEDS: diphenhydrAMINE HCL 25 MG CAPSULE PO PRN ×2 (05:05→23:04)
--- NOTE | 2021-03-10 05:06 | NUR ---
senior telecommunications consultant note patient itching again. given benadryl 25mg.
--- NOTE | 2021-03-10 05:18 | NUR ---
telephone operators supervisor notes patient complaining that he cannot breathe.. titrated oxygen and patient stabilized in 4lpm of oxygen also made patient sit in a tripod position which really helped him. v/s as follows: 151/95, hr- 85, 99% o2 saturation. patient was just given morphine.. Educated patient that morphine has an adverse effect of respiratory failure that is why it cannot be given every time. patient acknowledged this. patient stable for now.
--- NOTE | 2021-03-10 07:27 | NUR ---
color television console monitor notes no significant change since last shift. report given to florina for cont. of care.
[2021-03-10] MEDS: PANTOPRAZOLE 40 MG TABLET.DR PO SCH (07:30)
[2021-03-10] MEDS: ALBUTEROL FS 2.5 MG/3 ML VIAL.NEB NEB SCH (07:54)
[2021-03-10 08:00] VITALS: BP 141/86
[2021-03-10] MEDS: SEVELAMER CARBONATE 800 MG TABLET PO SCH ×3 (08:00→17:54)
--- NOTE | 2021-03-10 08:11 | NUR ---
SHIPPING POINT INSPECTOR NOTES RECEIVED PATIENT IN BED ASLEEP ON 4 L OF OXYGEN. PATIENT WOKE UP STATING HE CAN'T BREATHE AND HAS FLUID OVERLOAD DUE TO NO DIALYSIS YESTERDAY. O2 AT 96% CALLED RT FOR ASSISTANCE WITH BREATHING. RT AT BEDSIDE.
--- NOTE | 2021-03-10 08:12 | NUR ---
APPLE PICKER NOTES CALLED DR. MARTINES; EXPLAINED PATIENTS CONCERNS. NEW ORDER RECEIVED TO SCHEDULE HEMODIALYSIS FOR TODAY.
[2021-03-10] MEDS: NIFEdipine XL (30MG) 30 MG TAB PO SCH (08:45)
[2021-03-10] MEDS: MINOXIDIL (2.5MG) 2.5 MG TABLET PO SCH (08:45)
[2021-03-10] MEDS: LISINOPRIL (10MG) 10 MG TABLET PO SCH (08:45)
[2021-03-10] MEDS: hydrALAZINE HCL 50 MG TABLET PO SCH ×3 (08:45→17:55)
[2021-03-10] MEDS: LABETALOL HCL (100MG) 100 MG TABLET PO SCH ×2 (08:45→21:17)
--- NOTE | 2021-03-10 09:21 | NUR ---
ACTIVITY ASSISTANT NOTES PATIENT COMPLAINING OF PAIN 10 OUT OF 10. PRN MORPHINE 2 MG ADMINISTERED. WILL REASSESS.
--- NOTE | 2021-03-10 09:30 | NUR ---
ELECTRONICS MAINTENANCE TECHNICIAN NOTES PATIENT STARTED HEMODIALYSIS
--- NOTE | 2021-03-10 12:42 | NUR ---
TRAINING PERSONNEL SUPERVISOR NOTES PATIENT FINISHED HEMODIALYSIS. PATIENT STATES HE FEELS MUCH BETTER AND FELL ASLEEP.
--- NOTE | 2021-03-10 12:43 | NUR ---
HAT LINING PASTER NOTES PER DIALYSIS NURSE 3 L OUT
[2021-03-10 16:00] VITALS: BP 165/100
--- NOTE | 2021-03-10 19:02 | NUR ---
MEDICAL PHYSICIST CLOSING NOTE PATIENT IN BED ,IN AND OUT OF SLEEP, A/O X3 . PATIENT IS BREATHING EVENLY AND NONLABORED ON 4LPM VIA NASAL CANNULA. NO SIGNS OF DISTRESS NOTED. NO COMPLAINS OF PAIN AT THIS TIME. PATIENT HAS IV ACCESS ON RFA # 20 GAUGE AND LISE MIDLINE PATENT AND INTACT. PATIENT IS ON TELE MONITOR SHOWING NSR. ALL MEDICATIONS GIVEN ORDERED. ALL NEEDS ATTENDED DURING THE DAY. SAFETY MEASURES IN PLACE BED LOW LOCK AND CALL LIGHT WITHIN REACH. WILL ENDORSE TO ONCOMING SHIFT.
--- NOTE | 2021-03-10 19:46 | NUR ---
COMMERCIAL PROPERTY ADMINISTRATOR OPENING NOTE PT A/OX4; ABLE TO MAKE NEEDS KNOWN. ON O2 4LPM VIA N/C; C/O SOB. EXTERNAL DIRECTOR OF CASEWORK DEPARTMENT READS ST AT 100. LUE AV SHUNT; NO ACTIVE BLEEDING NOTED. LISE MIDLINE S/L AND RFA #20G S/L; PATENT AND INTACT. WILL CONT PAIN MANAGEMENT. SAFETY MEASURES IN PLACE: BED IN LOWEST LOCKED POSITION, SIDE RAILS UPX2, CALL LIGHT WITHIN EASY REACH. PT IN STABLE CONDITION; WILL CONTINUE PLAN OF CARE.
[2021-03-10 20:00] VITALS: BP 153/90
--- NOTE | 2021-03-10 20:17 | NUR ---
MICROSOFT DYNAMICS AX DEVELOPER NOTE PT C/O 02/18 PAIN WHEN BREATHING. ADMINISTERED MORPHINE ORDERED. WILL REASSESS FOR PAIN IN 30 MINUTES.
--- NOTE | 2021-03-10 23:07 | NUR ---
SHEET METAL WORKER SUPERVISOR NOTE PT C/O GENERALIZED ITCHINESS, NO RASHES NOTED. ADMIN BENADRYL ORDERED. WILL CONTINUE TO REASSESS.
[2021-03-11] VITALS: BP 135/60
[2021-03-11] MEDS: IPRATROPIUM NEB FS 0.5 MG/2.5 ML AMPUL.NEB NEB SCH ×7 (00:01→23:30)
[2021-03-11] MEDS: MORPHINE SULFATE INJ 2 MG/ML DISP.SYRIN IV PRN ×6 (00:34→21:49)
--- NOTE | 2021-03-11 00:34 | NUR ---
NURSE FIRST ASSIST NOTE PT C/O 8/10 PAIN UPON DEEP INSPIRATION. ADMINISTERED MORPHINE ORDERED. WILL REASSESS FOR PAIN IN 30 MINUTES.
[2021-03-11 04:00] VITALS: BP 146/80
--- NOTE | 2021-03-11 04:38 | NUR ---
ROTO GRAVURE PRESS OPERATOR NOTE PT C/O 9/10 PAIN UPON DEEP INSPIRATION. ADMINISTERED MORPHINE ORDERED. WILL REASSESS FOR PAIN IN 30 MINUTES.
[2021-03-11] MEDS: diphenhydrAMINE HCL 25 MG CAPSULE PO PRN (05:29)
--- NOTE | 2021-03-11 05:29 | NUR ---
BENEFITS REPRESENTATIVE NOTE - itchiness PT C/O GENERALIZED ITCHINESS, NO RASHES NOTED. ADMIN BENADRYL ORDERED. WILL CONTINUE TO REASSESS.
--- NOTE | 2021-03-11 06:52 | NUR ---
FINGERNAIL FORMER CLOSING NOTE PT A/OX4; ABLE TO MAKE NEEDS KNOWN. ON O2 4LPM VIA N/C; C/O SOB. EXTERNAL WIRE SPINNER READS ST AT 100. LUE AV SHUNT; NO ACTIVE BLEEDING NOTED. RFA #20G S/L; PATENT AND INTACT. SAFETY MEASURES IN PLACE: BED IN LOWEST LOCKED POSITION, SIDE RAILS UPX2, CALL LIGHT WITHIN EASY REACH. PT IN STABLE CONDITION; WILL ENDORSE PLAN OF CARE TO ONCOMING MORNING RN.
[2021-03-11 08:00] VITALS: BP 172/88
[2021-03-11] MEDS: NIFEdipine XL (30MG) 30 MG TAB PO SCH (08:33)
[2021-03-11] MEDS: LISINOPRIL (10MG) 10 MG TABLET PO SCH (08:33)
[2021-03-11] MEDS: hydrALAZINE HCL 50 MG TABLET PO SCH ×3 (08:33→17:02)
[2021-03-11] MEDS: SEVELAMER CARBONATE 800 MG TABLET PO SCH ×3 (08:33→17:02)
[2021-03-11] MEDS: PANTOPRAZOLE 40 MG TABLET.DR PO SCH (08:34)
[2021-03-11] MEDS: LABETALOL HCL (100MG) 100 MG TABLET PO SCH ×2 (08:34→21:46)
[2021-03-11] MEDS: MINOXIDIL (2.5MG) 2.5 MG TABLET PO SCH (08:34)
--- NOTE | 2021-03-11 09:04 | NUR ---
TELE/RN OPENING NOTE RECEIVED PT IN BED, A/OX4; ABLE TO MAKE NEEDS KNOWN. ON O2 4LPM VIA N/C; C/O SOB. EXTERNAL FOREIGN EXCHANGE STUDENT COORDINATOR READS ST AT 100. LUE AV SHUNT; NO ACTIVE BLEEDING NOTED. RFA #20G S/L; PATENT AND INTACT. SAFETY MEASURES IN PLACE: BED IN LOWEST LOCKED POSITION, SIDE RAILS UPX2, CALL LIGHT WITHIN EASY REACH. PT IN STABLE CONDITION; WILL CONTINUE TO MONITOR PATIENT.
[2021-03-11 12:00] VITALS: BP 152/94
[2021-03-11] MEDS: hydrOXYzine PAMOATE 25 MG CAPSULE PO PRN ×2 (13:52→21:48)
[2021-03-11 16:00] VITALS: BP 160/95
[2021-03-11] MEDS: LORAZEPAM INJ 2 MG/ML VIAL IV PRN (18:33)
--- NOTE | 2021-03-11 18:51 | NUR ---
TELE/RN CLOSING NOTE PT IN BED, A/OX4; ABLE TO MAKE NEEDS KNOWN. CURRENTLY ON ROOM AIR, NO SOB OR DISTRESS NOTED. PATIENT IS AMBULATORY AND STEADY. EXTERNAL SCHOOL ATHLETIC DIRECTOR READS ST AT HIGH 90'S. LUE AV SHUNT; NO ACTIVE BLEEDING NOTED. RFA #20G S/L; PATENT AND INTACT. ALL NEEDS MET. SAFETY MEASURES IN PLACE: BED IN LOWEST LOCKED POSITION, SIDE RAILS UPX2, CALL LIGHT WITHIN EASY REACH. WILL ENDORSE TO THE NEXT SHIFT FOR VERENICE.
--- NOTE | 2021-03-11 19:57 | NUR ---
FELT CUTTING MACHINE OPERATOR OPENING NOTE PT A/OX4; ABLE TO MAKE NEEDS KNOWN. ON R/A AND TOLERATING WELL. EXTERNAL PROFILING MACHINE SET UP OPERATOR TOOL READS ST AT 100. LUE AV SHUNT; NO ACTIVE BLEEDING NOTED. RFA #20G S/L; PATENT AND INTACT. WILL CONT PAIN MANAGEMENT. SAFETY MEASURES IN PLACE: BED IN LOWEST LOCKED POSITION, SIDE RAILS UPX2, CALL LIGHT WITHIN EASY REACH. PT IN STABLE CONDITION; WILL CONTINUE PLAN OF CARE.
[2021-03-11 20:00] VITALS: BP 158/89
--- NOTE | 2021-03-11 21:48 | NUR ---
GARAGE MANAGER NOTE - PAIN AND ITCHINESS PT C/O 910 PAIN UPON DEEP INSPIRATION. ADMINISTERED MORPHINE ORDERED. PT C/I ITCHINESS, NO RASHES NOTED. ADMINISTERED VISTARIL ORDERED. WILL REASSESS FOR PAIN AND ITCHINESS IN 30 MINUTES.
[2021-03-12] VITALS: BP 146/82
[2021-03-12] MEDS: MORPHINE SULFATE INJ 2 MG/ML DISP.SYRIN IV PRN ×3 (02:53→12:40)
--- NOTE | 2021-03-12 02:53 | NUR ---
SHOE REPAIRER NOTE - PAIN PT C/O 9/10 PAIN UPON DEEP INSPIRATION. ADMINISTERED MORPHINE ORDERED. WILL REASSESS FOR PAIN IN 30 MINUTES
[2021-03-12] MEDS: IPRATROPIUM NEB FS 0.5 MG/2.5 ML AMPUL.NEB NEB SCH ×6 (03:30→23:28)
[2021-03-12 04:09] VITALS: BP 127/70
--- NOTE | 2021-03-12 05:23 | NUR ---
TRACTOR ENGINE ASSEMBLER CLOSING NOTE PT A/OX4; ABLE TO MAKE NEEDS KNOWN. ON ROOM AIR; TOLERATING WELL. EXTERNAL RIG OPERATOR READS SR AT 90'S. LUE AV SHUNT; NO ACTIVE BLEEDING NOTED. RFA #20G S/L; PATENT AND INTACT. SAFETY MEASURES IN PLACE: BED IN LOWEST LOCKED POSITION, SIDE RAILS UPX2, CALL LIGHT WITHIN EASY REACH. PT IN STABLE CONDITION; WILL ENDORSE PLAN OF CARE TO ONCOMING MORNING RN.
[2021-03-12] MEDS: PANTOPRAZOLE 40 MG TABLET.DR PO SCH (06:41)
--- NOTE | 2021-03-12 06:45 | NUR ---
SLIP COVER SEWER NOTE - PAIN PT C/O 810 PAIN UPON DEEP INSPIRATION. ADMINISTERED MORPHINE ORDERED. WILL REASSESS FOR PAIN IN 30 MINUTES
[2021-03-12 08:00] VITALS: BP 129/90
--- NOTE | 2021-03-12 08:16 | NUR ---
FRONT END MECHANIC OPENING NOTE PATIENT IS ALERT AND ORIENTED X 4, ABLE TO MAKE NEEDS KNOWN. TOLERATING WELL ON ROOM AIR. NO SOB. BREATHING IS EVEN AND UNLABORED. NO S/S OF DISTRESS NOTED. NO COMPLAINTS OF PAIN AT THIS TIME. EXTERNAL TELE MONITOR READS SR 90'S. IV ACCESS RFA#20 PATENT AND INTACT. SAFETY MEASURES IN PLACE WITH BED LOCKED AT LOW POSITION AND SIDE RAILS UP X2. WILL CONTINUE TO MONITOR PT THROUGHOUT SHIFT.
[2021-03-12] MEDS: SEVELAMER CARBONATE 800 MG TABLET PO SCH ×3 (08:49→17:16)
[2021-03-12] MEDS: LABETALOL HCL (100MG) 100 MG TABLET PO SCH ×2 (08:53→22:39)
[2021-03-12] MEDS: NIFEdipine XL (30MG) 30 MG TAB PO SCH (08:54)
[2021-03-12] MEDS: MINOXIDIL (2.5MG) 2.5 MG TABLET PO SCH (08:55)
[2021-03-12] MEDS: hydrALAZINE HCL 50 MG TABLET PO SCH ×3 (08:55→17:15)
[2021-03-12] MEDS: LISINOPRIL (10MG) 10 MG TABLET PO SCH (08:56)
[2021-03-12] MEDS: hydrOXYzine PAMOATE 25 MG CAPSULE PO PRN ×2 (08:58→22:38)
[2021-03-12 12:00] VITALS: BP 173/99
[2021-03-12 16:00] VITALS: BP 152/90
--- NOTE | 2021-03-12 19:00 | NUR ---
BLOCKMAN CLOSING NOTE PATIENT IS ALERT AND ORIENTED X 4. NO COMPLAINTS OF PAIN AT THIS TIME. PATIENT REMOVED IV ACCESS, ATTEMPTED TO REINSERT WITH NO SUCCESS. PATIENT REFUSED SECOND RESTICK. CHARGE NURSE MADE AWARE. EXTERNAL TELE MONITOR READS SR 90'S. WILL ENDORSE CONTINUITY OF CARE TO ONCOMING SHIFT.
[2021-03-12] MEDS: CLONIDINE HCL 0.3 MG/24H PTWK 1 EA PATCH TD SCH (19:23)
[2021-03-12 20:12] VITALS: BP 145/77
--- NOTE | 2021-03-12 20:36 | NUR ---
MS/TELE/RN PATIENT IS AWAKE, ALERT, ORIENTED, COMFORTABLE, NO C/O PAIN, NO DISTRESS NOTED, HEMODIALYSIS IN PROGRESS, WILL MONITOR.
--- NOTE | 2021-03-12 23:31 | NUR ---
MS/TELE/RN PATIENT REFUSED VITAL SIGNS, REFUSED TO HAVE TELE LEADS FIXED.
[2021-03-13] MEDS: IPRATROPIUM NEB FS 0.5 MG/2.5 ML AMPUL.NEB NEB SCH ×5 (03:15→14:39)
--- NOTE | 2021-03-13 05:51 | NUR ---
MS/TELE/RN PER ENGINEERING LIBRARIAN, PATIENT REFUSED BLOOD DRAW.
--- NOTE | 2021-03-13 06:14 | NUR ---
MS/TELE/RN PATIENT IS STILL SLEEPING AT THIS TIME, APPEAR COMFORTABLE, NO SIGNS OF DISTRESS NOTED, CALL LIGHT IN REACH. ALL NEEDS ATTENDED AT THIS TIME, WILL CONTINUE TO MONITOR.
--- NOTE | 2021-03-13 07:29 | NUR ---
DECKHAND CRAB BOAT OPENING NOTE PATIENT ASLEEP, EASY TO AROUSE. ALERT AND ORIENTED X 4, ABLE TO MAKE NEEDS KNOWN. NO SOB. BREATHING IS EVEN AND UNLABORED. NO S/S OF DISTRESS NOTED. NO COMPLAINTS OF PAIN AT THIS TIME. EXTERNAL TELE MONITOR READS SR 90'S. SAFETY MEASURES IN PLACE WITH BED LOCKED AT LOW POSITION AND SIDE RAILS UP X2. WILL CONTINUE TO MONITOR PT THROUGHOUT SHIFT.
[2021-03-13 08:00] VITALS: BP 128/76
--- NOTE | 2021-03-13 08:00 | NUR ---
AUTOMOTIVE COLLISION ESTIMATOR NOTES PATIENT REMOVED TELE MONITOR AND REFUSED TO REAPPLY LEADS. MD AND CHARGE NURSE AWARE.
[2021-03-13] MEDS: PANTOPRAZOLE 40 MG TABLET.DR PO SCH (08:09)
[2021-03-13] MEDS: SEVELAMER CARBONATE 800 MG TABLET PO SCH ×3 (08:11→17:21)
[2021-03-13] MEDS: hydrALAZINE HCL 50 MG TABLET PO SCH ×3 (08:12→17:22)
[2021-03-13] MEDS: MINOXIDIL (2.5MG) 2.5 MG TABLET PO SCH (08:12)
[2021-03-13] MEDS: LABETALOL HCL (100MG) 100 MG TABLET PO SCH (08:12)
[2021-03-13] MEDS: LISINOPRIL (10MG) 10 MG TABLET PO SCH (08:13)
[2021-03-13] MEDS: NIFEdipine XL (30MG) 30 MG TAB PO SCH (08:13)
[2021-03-13] MEDS: hydrOXYzine PAMOATE 25 MG CAPSULE PO PRN (08:13)
[2021-03-13] MEDS: MORPHINE SULFATE INJ 2 MG/ML DISP.SYRIN IV PRN ×3 (08:14→17:22)
[2021-03-13 12:00] VITALS: BP 144/92
[2021-03-13 16:00] VITALS: BP 134/73
[2021-03-13 17:22] VITALS: BP 134/73
--- NOTE | 2021-03-13 18:07 | NUR ---
MS RN NOTES CALLED [facility] AND GAVE REPORT TO RALEIGH RODARTE.
--- NOTE | 2021-03-13 19:25 | NUR ---
MS HOP FARM WORKER NOTES PATIENT LEFT UNIT WITH STABLE VITALS. REMOVED IV ACCESS AND ARM BAND. NO S/S OF DISTRESS NOTED. REPORT GIVEN TO RALEIGH RODARTE AT [facility]. DISCHARGE SUMMARY REVIEWED WITH PATIENT AND SIGNED.
[2021-03-23] MEDS ORDERED: CEFE2FRO IV (10:38)
[2021-03-23] MEDS ORDERED: TENO300T5 PO (10:44)
[2021-03-23] MEDS ORDERED: LAMI150T PO (10:44)
[2021-03-23] MEDS ORDERED: RALT400T PO (10:44)
[2021-03-23] MEDS ORDERED: HYDR-4076 PO (10:44)
== END 2021-03-13 19:00 | DRG 208 ==
LOC: ER 19:36 → ICU 22:35 → TELE 03-06 11:23
PROVIDERS: ADMIT Student in an Organized Health Care Education/Training Program; ATTEND Internal Medicine
PROC: 5A1945Z Respiratory Ventilation, 24-96 Consecutive Hours (ICD-10-PCS; principal; 2021-03-03)
PROC: 0BH18EZ Insertion of Endotracheal Airway into Trachea, Via Natural or Artificial Opening Endoscopic (ICD-10-PCS; 2021-03-03)
PROC: 5A2204Z Restoration of Cardiac Rhythm, Single (ICD-10-PCS; 2021-03-03)
PROC: 05H933Z Insertion of Infusion Device into Right Brachial Vein, Percutaneous Approach (ICD-10-PCS; 2021-03-04)
PROC: 5A1D70Z Performance of Urinary Filtration, Intermittent, Less than 6 Hours Per Day (ICD-10-PCS; 2021-03-04)
PROC: 30233N1 Transfusion of Nonautologous Red Blood Cells into Peripheral Vein, Percutaneous Approach (ICD-10-PCS; 2021-03-05)
DX: J96.00 Acute respiratory failure, unspecified whether with hypoxia or hypercapnia (principal); N18.6 End stage renal disease; R57.0 Cardiogenic shock; J15.9 Unspecified bacterial pneumonia; I13.2 Hypertensive heart and chronic kidney disease with heart failure and with stage 5 chronic kidney disease, or end stage renal disease; E44.0 Moderate protein-calorie malnutrition; J98.11 Atelectasis; Z16.24 Resistance to multiple antibiotics; G93.40 Encephalopathy, unspecified; E87.2 Acidosis; Z99.2 Dependence on renal dialysis; Z20.822 Contact with and (suspected) exposure to COVID-19; E87.5 Hyperkalemia; Z88.1 Allergy status to other antibiotic agents; Z88.0 Allergy status to penicillin; E03.9 Hypothyroidism, unspecified; D64.9 Anemia, unspecified; E83.39 Other disorders of phosphorus metabolism; I50.9 Heart failure, unspecified; Z91.15 Patient's noncompliance with renal dialysis
CPT/HCPCS: 31720; 36410; 36415; 36600; 71045-TC; 80048-TC; 80053-TC; 80061-TC; 80076-TC; 82803-TC; 83540-TC; 83605-TC; 83735-TC; 84100-TC; 84443-TC; 84478-TC; 84484-TC; 85025-TC; 85027-TC; 85610-TC; 85730-TC; 86704; 86706; 86850-TC; 87040-TC; 87081-TC; 87340; 90935-TC; 93307-TC; 94003-TC; 94760-TC; 94799-TC; 99082-TC; A4216; A6403; C9113; G0378; J0171; J0360; J0885; J1644; J1815; J2060; J2185; J2270; J2405; J3490; J7030; J7050; P9016; P9047; Q0163; Q0177; U0003

== ENCOUNTER 2021-03-18 20:34 | Inpatient (IN) | payer MEDICARE, OTHER ==
[~2021-03-18] VITALS: Ht 182.9 cm; Wt 86.2 kg
--- NOTE | 2021-03-18 21:27 | NUR ---
SHIN FROM SNF TO ER BED 7. AAOX4. NOT IN RESP DISTRESS, BREATHING EVEN AND UNLABORED. SENT BY PMD FOR AN ABNORMAL LAB. PT'S HGB IS 6.1 AND HCT 17. PT IS ALSO C/O FEELING WEAK AFTER RECEIVING DIALYSIS YESTERDAY. PT IS ON DIALYSIS QMWF. WAS AT THE BEDSIDE FOR EVAL. ORDERS RECEIVED, NOTED AND CARRIED OUT.
--- NOTE | 2021-03-18 21:31 | NUR ---
PT REFUSES TO HAVE IV IV LINE UNLESS IT IS A MIDLINE BECAUSE HE IS A HARD STICK. 2 NURSE TRIED TO ATTEMPT BUT STILL REFUSES. RISK AND BENEFIT EXPLAINED TO PT BUT STILL DOES NOT WANT AN IV. THE MD MADE AWARE. OK TO ORDER MID LILNE PER MD.
--- NOTE | 2021-03-18 21:37 | NUR ---
called dr raymundo to page Dr Tam.
--- NOTE | 2021-03-18 21:48 | NUR ---
called [facility]. client application support engineer dr patel
--- NOTE | 2021-03-18 22:13 | NUR ---
COVID SWAB COLLECTED AND SENT TO LAB
--- NOTE | 2021-03-18 22:22 | NUR ---
per house sup, no midline until tomorrow morning
[2021-03-18 22:29] LABS: BASOPHILS % (AUTO) 1.1 % (0.0-2.0); EOSINOPHILS % (AUTO) 6.6 % (0.0-6.0); LYMPHOCYTES # (AUTO) 0.9 K/uL (0.8-4.8); LYMPHOCYTES % (AUTO) 22.9 % (20.0-44.0); MEAN CORPUSCULAR HGB CONC 32 g/dl (31.0-36.0); MEAN CORPUSCULAR VOLUME 89 fL (80-96); MONOCYTES # (AUTO) 0.4 K/uL (0.1-1.30); MONOCYTES % (AUTO) 10.7 % (2.0-12.0); NEUTROPHILS # (AUTO) 2.2 K/uL (1.8-8.9); NEUTROPHILS % (AUTO) 58.7 % (43.0-81.0); PLATELET COUNT (AUTO) 134 K/uL (150-450); RED BLOOD CELL COUNT(AUTO) 2.05 MIL/uL (4.5-6.0); WHITE BLOOD COUNT (AUTO) 3.8 K/uL (4.3-11.0)
[2021-03-18 22:31] LABS: HEMOGLOBIN 5.8 g/dL (13.5-17.5)
[2021-03-18 22:32] LABS: HEMATOCRIT 18 % (39-51)
[2021-03-18 22:54] LABS: POTASSIUM 5.9 mmol/L (3.5-5.1)
[2021-03-18 22:55] LABS: CALCIUM, SERUM 8.3 mg/dL (8.5-10.1)
[2021-03-18 23:07] LABS: ALBUMIN 2.7 g/dL (3.4-5.0); BILIRUBIN,DIRECT 0.1 mg/dL (0.0-0.2); BILIRUBIN,TOTAL 0.3 mg/dL (0.2-1.0); TOTAL PROTEIN, SERUM 7.2 g/dL (6.4-8.2)
--- NOTE | 2021-03-18 23:14 | NUR ---
called [facility] to have bakery demonstrator dr patel
[2021-03-18 23:15] LABS: EOSINOPHILS % (MANUAL) 5 % (0-4); LYMPHOCYTES % (MANUAL) 24 % (16-48); MONOCYTES % (MANUAL) 10 % (0-11.0); NEUTROPHILS % (MANUAL) 61 (42-76)
[2021-03-18] MEDS ORDERED: ALBUTEROL FS 2.5 MG/0.5 ML VIAL.NEB NEB ONE (23:30)
--- NOTE | 2021-03-18 23:42 | NUR ---
BLOOD BANK CALLED TO INFORM THAT BLOOD IN READY. ASKED PT AGAIN IF HE WILL ALLOW TO HAVE AN IV INSERTED BUT STILL WANT A MID LINE. AT THIS POINT AWAITING MID LINE NURSE
--- NOTE | 2021-03-18 23:49 | NUR ---
called [facility] to have director of rehabilitation and wellness dr gunn
[2021-03-19] VITALS (10 sets, daily range): BP systolic 136–176; BP diastolic 71–103
--- NOTE | 2021-03-19 00:15 | NUR ---
called rt for breathing tx
--- NOTE | 2021-03-19 00:18 | NUR ---
dr isaac on the phone with er
[2021-03-19] MEDS ORDERED: ALBUTEROL FS 2.5 MG/3 ML VIAL.NEB ONE (00:38)
[2021-03-19] MEDS ORDERED: Z GUARD REMEDY 2 OZ OINT TP PRN (01:30)
[2021-03-19] MEDS ORDERED: ONDANSETRON HCL/PF 4 MG/2 ML VIAL IVP PRN (01:30)
--- NOTE | 2021-03-19 01:30 | NUR ---
called house sup for bed
--- NOTE | 2021-03-19 01:34 | NUR ---
f/u with lab about covid results, machine is down
--- NOTE | 2021-03-19 01:55 | NUR ---
CALL RALF FOR REPORT, RALF WILL CALL BACK TO RECEIVE REPORT
--- NOTE | 2021-03-19 02:19 | NUR ---
REPORT GIVEN TO RN BARBRA
--- NOTE | 2021-03-19 02:30 | NUR ---
MS RN ADMITTING NOTE PT TRANSPORTED BY GE TO UNIT AT THIS TIME. RECEIVED REPORT FROM RALEIGH MCKEON @ED, AOX 4, ON 2L OF OXYGEN VIA NC, NO SOB, PAIN AT THIS TIME, NO S/S OF NAY APPARENT DISTRESS NOTED. RESPIRATIONS EVEN ND UNLABORED, ACTIVE BOWEL SOUNDS AUSCULTATED THROUGHOUT, ABDOMEN IS NON DISTENDED. REDNESS ON THE ARMS,SKIN IS WARM TO TOUCH. CAPILLARY REFILL <3 SECS, PULSES PRESENT BILATERALLY, GOOD CIRCULATION NOTED. NO IV ACCESS IN PLACE.LUE FISTULA NOTED FOR HD, PTS BELONGINGS ACCOUNTED FOR, AND KEPT AT PT'S BEDSIDE PER PT REQUEST. ASPIRATION AND SAFETY PRECAUTIONS IN PLACE AND MAINTAINED AT ALL TIMES. BED IN LOWEST LOCKED POSITION, SIDE RAILS UPX2, TABLE AND LIGHT WITHIN REACH. WILL CONTINUE PLAN OF CARE.ABLE TO COMMUNICATE NEEDS.
--- NOTE | 2021-03-19 02:40 | NUR ---
PATIENT TRANSFERRED UNDER ACLS TO 304
--- NOTE | 2021-03-19 06:00 | NUR ---
PT C/O ITCHING. DR BERNARD MADE AWARE. WILL ENDORSE TO AM NURSE
--- NOTE | 2021-03-19 06:30 | NUR ---
RN CLOSING NOTE PT IS AWAKE IN BED, STABLE ALL SHIFT. WILL ENDORSE TO DAY AM NURSE
--- NOTE | 2021-03-19 07:40 | NUR ---
MS RN OPENING NOTES RECEIVED PT AWAKE IN BED IN NO ACUTE SIGNS FO DISTRESS. A/0 X4. ABLE TO MAKE NEEDS KNOWN. , C/O ITCHING, AWAITING FOR MD ORDER. O2 VIA N/C AT 2LPM, TOLERATING WELL WITH NO SOB NOTED. PT WITH AV FISTULA ON DORIAN WITH + BRUIT AND SHRILL NOTED. PT WITH NO IV ACCESS AT THIS TIME, AWAITING INSERTION OF MIDLINE PER WINDMILL TECHNICIAN REPORT. SAFETY MEASURES IN PLACED: CALL LIGHT WITHIN REACH. BED ON LOWEST AND LOCKED POSITION WITH SIDE RAILS UP X2. WILL CONTINUE TO MONITOR PT ACCORDINGLY.
[2021-03-19] MEDS ORDERED: SEVE800T28 PO (07:42)
[2021-03-19] MEDS ORDERED: LISI40TA13 PO (07:42)
[2021-03-19] MEDS ORDERED: PANT40TA2 PO (07:42)
[2021-03-19] MEDS ORDERED: HYDR50TA61 PO (07:42)
[2021-03-19] MEDS ORDERED: MULT-447 PO (07:42)
[2021-03-19] MEDS ORDERED: NIFE90TA61 PO (07:42)
[2021-03-19] MEDS ORDERED: CLON0.3P TD (07:42)
[2021-03-19] MEDS ORDERED: ACET-868 PO (07:42)
[2021-03-19] MEDS ORDERED: MAG30ORA PO (07:42)
[2021-03-19] MEDS ORDERED: ALBU8.5H8 IH (07:42)
[2021-03-19] MEDS ORDERED: LABE200T5 PO (07:42)
[2021-03-19] MEDS ORDERED: HYDR-4076 PO (07:42)
[2021-03-19] MEDS ORDERED: MINO2.5T2 PO (07:42)
[2021-03-19] MEDS ORDERED: ASCO-352 PO (07:42)
[2021-03-19] MEDS: PANTOPRAZOLE 40 MG TABLET.DR PO SCH (08:28)
[2021-03-19] MEDS: ACETAMINOPHEN 325 MG TABLET PO PRN (10:31)
[2021-03-19] MEDS ORDERED: LIDOCAINE 1% INJ 50 ML MDV IJ STA (10:44)
[2021-03-19] MEDS: LABETALOL HCL (100MG) 100 MG TABLET PO SCH ×2 (11:00→22:55)
[2021-03-19] MEDS ORDERED: ALBUTEROL FS 2.5 MG/0.5 ML VIAL.NEB NEB PRN (11:00)
[2021-03-19] MEDS ORDERED: CLONIDINE HCL 0.3 MG/24H PTWK 1 EA PATCH TD SCH (11:00)
[2021-03-19] MEDS: hydrOXYzine PAMOATE 25 MG CAPSULE PO PRN (11:03)
[2021-03-19] MEDS: diphenhydrAMINE HCL 50 MG/ML VIAL IV PRN ×2 (11:28→12:43)
--- NOTE | 2021-03-19 11:34 | NUR ---
RN NOTES HEMODIALYSIS VIA AV FISTULA ON DORIAN STARTED BY HD RALEIGH BRITO. BLOOD TRANSFUSION OF PRBC BAG 1 OF 2 STARTED AT 1140 WITH HD. BENADRYL 50MG IV SAME GIVEN BEFORE HD. ALL BP MEDS HELD AT THIS TIME PER HD RALEIGH BRITO. WILL MONITOR FOR ANY ALLERGIC OR ADVERSE EFFECTS.
--- NOTE | 2021-03-19 12:48 | NUR ---
RN NOTES PRBC FIRST UNIT BAG FINISHED W/O ANY ALLERGIC/ADVERSE EFFECTS NOTED. 2ND BAG UNITS OF PRBC STARTED AT 1240 WITH HD. WILL CONTINUE TO MONITOR.
[2021-03-19] MEDS: hydrALAZINE HCL 25 MG TABLET PO SCH ×2 (13:00→17:05)
--- NOTE | 2021-03-19 13:00 | NUR ---
RN NOTE RECEIVED REPORT FROM RALEIGH LEIGH FOR VERENICE.
--- NOTE | 2021-03-19 13:05 | NUR ---
RN NOTE HEMODIALYSIS ONGOING. PER HD NURSE, HOLD BP MEDS.
[2021-03-19] MEDS: SEVELAMER CARBONATE 800 MG TABLET PO SCH ×2 (13:10→17:04)
--- NOTE | 2021-03-19 13:44 | NUR ---
RN NOTES SECOND UNIT BAG OF PRBC OF 2 FINISHED WITH HD. PT TOLERATED BLOOD TRANSFUSION WITH NO ALLERGIC/ADVERSE EFFECTS NOTED. V/S TAKEN AND RECORDED.
--- NOTE | 2021-03-19 13:45 | NUR ---
RN NOTES REPORT AND TRANSFER OF CARE GIVEN TO RALEIGH MART.
--- NOTE | 2021-03-19 14:40 | NUR ---
RN NOTES HEMODIALYSIS FINISHED WITH 2,349ML OUTPUT. PT TOLERATED HD. WILL CONTINUE TO MONITOR
--- NOTE | 2021-03-19 15:14 | NUR ---
RN NOTE STOOL SPECIMEN FOR OCCULT BLOOD COLLECTED
--- NOTE | 2021-03-19 18:03 | NUR ---
RN CLOSING NOTE PATIENT RESTING IN BED. A/O X4. NO SOB NOTED. NO S/S OF RESPIRATORY DISTRESS. DENIES ANY PAIN OR DISCOMFORT AT THIS TIME. NO IV ACCESS. ORDERED FOR MIDLINE INSERTION. HAS LUE AV FISTULA C/D/I. MEDS GIVEN ORDERED. ALL NEEDS HAVE BEEN MET AND ATTENDED. SAFETY MEASURES MAINTAINED. BED IN LOWEST POSITION, BRAKES LOCKED. SIDE RAILS UP X2. KEPT CALL LIGHT WITHIN REACH. WILL ENDORSE CONTINUITY OF CARE TO ONCOMING SHIFT.
--- NOTE | 2021-03-19 19:05 | NUR ---
MS RN OPENING NOTE RECEIVED PT AWAKE IN BED. A/OX4. PT ON 2LOXYGEN NC. NO SOB NOTED. NO S/S OF RESPIRATORY DISTRESS. PT IS BRP. HAS NO C/O PAIN AT THIS TIME. IV ACCESS ON R UPPER ARM MIDLINE G #18 INTACT, PATENT AND FLUSHING WELL. LUE AV FISTULA HD LINE NOTED. SAFETY MEASURES MAINTAINED. BD IN LOWEST LOCKED POSITION, HOB ELEVATED, SIDE RAILS UP X2. CALL LIGHT AND TABLE WITHIN REACH. WILL CONTINUE WITH PLAN OF CARE.
[2021-03-19 20:15] LABS: OCCULT BLOOD STOOL NEGATIVE (NEGATIVE)
[2021-03-19] MEDS: HYDROCODONE/APAP 5/325MG TABLET PO PRN (21:40)
--- NOTE | 2021-03-19 21:40 | NUR ---
PT C/O 7/10 ACHING PAIN ON HIS LEFT HAND, PER PT REQUEST NORCO 5-325MG PO Q6HR PRN ADMINISTERED PER ORDER, WILL CONTINUE TO MONITOR
[2021-03-20] VITALS (8 sets, daily range): BP systolic 131–204; BP diastolic 75–119
[2021-03-20] MEDS: hydrOXYzine PAMOATE 25 MG CAPSULE PO PRN ×2 (02:57→21:54)
--- NOTE | 2021-03-20 02:57 | NUR ---
PT C/O ITCHING, PER PT REQUEST HYDROXYZINE PAMOATE 50MG PO Q8HR PRN ADMINISTERED PER ORDER, WILL CONTINUE TO MONITOR
--- NOTE | 2021-03-20 06:36 | NUR ---
MS RN CLOSING NOTE PT IS IN BED AWAKE. A/OX4. PT IS STABLE ON OXYGEN 4L VIA NC. NO SOB OR RESPIRATORY DISTRESS NOTED THROUGH SHIFT.ALL NEEDS HAVE BEEN MET. ALL CARE, NEEDS, MEDICATIONS, PAIN MEDICATION AND TREATMENT ADMINISTERED ANTICIPATED PER ORDER.SAFETY, SEIZURE, AND ASPIRATION PRECAUTIONS MAINTAINED AT ALL TIMES. BED IN LOWEST LOCKED POSITION, HOB ELEVATED, SIDE RAILS UP X2, CALL LIGHT AND TABLE WITHIN REACH. WILL ENDORSE TO ONCOMING NURSE.
[2021-03-20 06:45] LABS: THYROID STIMULATING HORMONE 4.06 uIU/mL (0.358-3.74)
--- NOTE | 2021-03-20 07:12 | NUR ---
MS RN OPENING NOTES RECEIVED PT ASLEEP IN BED, EASILY AWAKENS. A/O X4. ABLE TO MAKE NEEDS KNOWN, NO C/O PAIN OR DISCOMFORTS AT THIS TIME. O2 VIA N/C AT 2LPM, TOLERATING WELL WITH NO SOB NOTED. AV FISTULA ON DORIAN WITH + BRUIT AND SHRILL NOTED. LISE MIDLINE G#18 INTACT, PATENT AND FLUSHES WELL. SAFETY MEASURES IN PLACE: CALL LIGHT WITHIN REACH. BED ON LOWEST AND LOCKED POSITION WITH SIDE RAILS UP X2. WILL CONTINUE TO MONITOR PT ACCORDINGLY.
[2021-03-20] MEDS: PANTOPRAZOLE 40 MG TABLET.DR PO SCH ×2 (07:30→08:46)
[2021-03-20 07:43] LABS: POTASSIUM 5.2 mmol/L (3.5-5.1)
[2021-03-20 07:44] LABS: CALCIUM, SERUM 8.3 mg/dL (8.5-10.1); CREATININE 7.8 mg/dL (0.6-1.3); PHOSPHORUS 4.1 mg/dL (2.5-4.9)
[2021-03-20 07:45] LABS: MAGNESIUM 1.8 mg/dL (1.8-2.4)
[2021-03-20 08:32] LABS: BASOPHILS % (AUTO) 1.2 % (0.0-2.0); EOSINOPHILS % (AUTO) 7.6 % (0.0-6.0); LYMPHOCYTES # (AUTO) 0.7 K/uL (0.8-4.8); LYMPHOCYTES % (AUTO) 21.8 % (20.0-44.0); MEAN CORPUSCULAR HGB CONC 33 g/dl (31.0-36.0); MEAN CORPUSCULAR VOLUME 87 fL (80-96); MONOCYTES # (AUTO) 0.5 K/uL (0.1-1.30); MONOCYTES % (AUTO) 13.8 % (2.0-12.0); NEUTROPHILS # (AUTO) 1.9 K/uL (1.8-8.9); NEUTROPHILS % (AUTO) 55.6 % (43.0-81.0); PLATELET COUNT (AUTO) 116 K/uL (150-450); RED BLOOD CELL COUNT(AUTO) 2.32 MIL/uL (4.5-6.0); WHITE BLOOD COUNT (AUTO) 3.4 K/uL (4.3-11.0)
[2021-03-20 08:38] LABS: HEMATOCRIT 20 % (39-51); HEMOGLOBIN 6.6 g/dL (13.5-17.5)
[2021-03-20] MEDS: ASCORBIC ACID 500 MG TABLET PO SCH (08:44)
[2021-03-20] MEDS: MINOXIDIL (2.5MG) 2.5 MG TABLET PO SCH (08:45)
[2021-03-20] MEDS: NIFEdipine XL (30MG) 30 MG TAB PO SCH (08:45)
[2021-03-20] MEDS: hydrALAZINE HCL 25 MG TABLET PO SCH ×3 (08:45→16:36)
[2021-03-20] MEDS: SEVELAMER CARBONATE 800 MG TABLET PO SCH ×3 (08:45→17:41)
[2021-03-20] MEDS: MULTIVITAMINS,THERAGRAN 1 UDTAB TABLET PO SCH (08:45)
[2021-03-20] MEDS: LISINOPRIL (20MG) 20 MG TABLET PO SCH (08:46)
[2021-03-20] MEDS ORDERED: SODIUM POLYSTYRENE SULFONATE 15 G/60 ML BOTTLE PO ONE (09:00)
--- NOTE | 2021-03-20 09:11 | NUR ---
RN NOTES RECEIVED CALL FROM ASSISTANT COMMISSIONER SAEED CAMERON THAT PT HAS CRITICAL LOW HGB 6.6. DR GIBSON ON UNIT WITH ORDER TO INFUSE PRBC X1 UNIT. WILL CARRY OUT ORDER.
[2021-03-20] MEDS: MEROPENEM 500 MG in IV NS 0.9% 50 ML IV SCH ×2 (09:19→20:53)
--- NOTE | 2021-03-20 09:52 | NUR ---
RN NOTES PT WITH HIGH POTASSIUM 5.2 TODAY, ADMINISTERED KAYEXELATE 30GM/120ML PO ORDERED.
[2021-03-20] MEDS: LABETALOL HCL (100MG) 100 MG TABLET PO SCH ×2 (11:00→22:00)
--- NOTE | 2021-03-20 11:56 | NUR ---
RN NOTES DR MARTINES ON UNIT WITH ORDER TO GIVE ANOTHER UNIT OF PRBC WITH TOTAL OF 2 UNITS TODAY WITH HEMODIALYSIS.
[2021-03-20] MEDS: diphenhydrAMINE HCL 50 MG/ML VIAL IV PRN (12:37)
--- NOTE | 2021-03-20 12:57 | NUR ---
RN NOTES PT ON ONGOING HEMODIALYSIS VIA RUE AV FISTULA AND STARTED ON BLOOD TRANSFUSION OF 1ST UNIT OF TWO AT 1254 WITH HEMODIALYSIS. V/S CHECKED AND RECORDED. WILL MONITOR FOR ANY ALLERGIC OR ADVERSE EFFECTS OF TRANSFUSION.
--- NOTE | 2021-03-20 13:01 | NUR ---
RN NOTES PT'S BLOOD PRESSURE OF TRANDATE SCHEDULED AT 1100 AND HYDRALAZINE AT 1300 HELD PER HD RN DARYL. PT IS ON ONGOING HEMODIALYSIS AT THIS TIME.
--- NOTE | 2021-03-20 14:22 | NUR ---
RN NOTES IST UNIT OF PRBC OF 2 FINISHED WITH NO ALLERGIC REACTIONS OR ADVERSE REACTIONS NOTED. 2ND UNIT STARTED AT 1421 WITH HEMODIALYSIS. WILL CONTINUE TO MONITOR.
--- NOTE | 2021-03-20 15:32 | NUR ---
RN NOTES PT BLOOD TRANSFUSION AND HEMODIALYSIS JUST FINISHED WITH 1,OOML OUTPUT. PT'S TOLERATED PROCEDURES WITH NO ALLERGIC OR ADVERSE REACTIONS NOTED. WILL CONTINUE TO MONITOR.
[2021-03-20] MEDS: HYDROCODONE/APAP 5/325MG TABLET PO PRN (16:36)
--- NOTE | 2021-03-20 16:44 | NUR ---
RN NOTES PT C/O PAIN ON HIS LEFT HAND SPECIALLY ON HIS LEFT THUMB, PRN NORCO 5/325 PO GIVEN AT 1436. WILL CONTINUE TO MONITOR AND REASSESS PT.
--- NOTE | 2021-03-20 17:33 | NUR ---
RN NOTES REPORTED TO DR GIBSON OF PT'S RESULTS OF LEFT HAND X-RAY WITH ORDER TO INFORM DR PATRICK. CALLED AND SPOKE TO DR PATRICK AND ORDER TO SEND HIM PT'S FACE SHEET AND RESULTS OF LEFT HAND X-RAY.
--- NOTE | 2021-03-20 17:42 | NUR ---
RN DISCHARGED NOTES [facility] ST[facility] CONDITION. PT IS A/O X3-4. ABLE TO VERBALIZED NEEDS. V/S TAKEN, STABLE AND RECORDED. ALL BELONGINGS ACCOUNTED FOR AND SIGNED FORM. MIDLINE ON LISE REMOVED WITH NO BLEEDING NOTED, DRY DRESSING APPLIED TO SITE. REPORT GIVEN EARLIER TO RALEIGH CHERRY. PT'S BELONGINGS AND EXIT FOLDER HANDED TO ONE OF THE EMT'S. PT LEFT UNIT AT 1730 ON VIA N/C AT 2LPM ACCOMPANIED BY 3 EMT'S FROM [facility]. CHARGE NURSE AWARE OF DISCHARGE. Addendum: 03/20/21 at 1750 by SUNDEEP BARAKAT RN ERROR: WRONG PATIENT. SORRY!
--- NOTE | 2021-03-20 17:51 | NUR ---
RN NOTES DR PATRICK (ORTHO) STATED THAT THER HAND SURGEON DOESN'T HAVE PRIVILEGES YET. DR GIBSON MADE AWARE.
[2021-03-20] MEDS: ACETAMINOPHEN 325 MG TABLET PO PRN (18:00)
--- NOTE | 2021-03-20 18:01 | NUR ---
RN NOTES PT C/O HEAD ACHE, PRN TYLENOL 650 MG PO GIVEN AT 1800. WILL CONTINUE TO MONITOR
--- NOTE | 2021-03-20 19:25 | NUR ---
MS RN CLOSING NOTES PT IN BED WATCHING ON HIS I-PAD AT THIS TIME. A/O X4. ABLE TO MAKE NEEDS KNOWN. O2 VIA N/C AT 2LPM, TOLERATING WELL WITH NO SOB NOTED. AV FISTULA ON DORIAN WITH + BRUIT AND SHRILL NOTED. LISE MIDLINE G#18 INTACT, PATENT AND FLUSHES WELL. ALL NEEDS AND CARE ATTENDED WELL. SAFETY MEASURES IN PLACE: CALL LIGHT WITHIN REACH. BED ON LOWEST AND LOCKED POSITION WITH SIDE RAILS UP X2. ENDORSED VERENICE TO NIGHT RALEIGH STEPHENSON. .
--- NOTE | 2021-03-20 19:40 | NUR ---
MS RN OPENING NOTES Patient is A&Ox4. States he has been feeling better than days prior but does still get fatigued when up and around but is steady when walking and does not get dizzy per patient. States his main issue right now is his pain in the L hand and the norco is not helping at all. Patient reports toradol and morphine have helped in past. Notified on-call MD of issue -awaiting response.
--- NOTE | 2021-03-20 21:20 | NUR ---
MD reviewed patient Xray of L hand and took into consideration pt repeated c/o pain unrelieved. New order MD increased dose of [place] to 10/325 Q6H PRN for moderate to severe pain.
[2021-03-20] MEDS: HYDROCODONE/APAP 10/325MG TABLET PO PRN (22:28)
--- NOTE | 2021-03-20 23:55 | NUR ---
Patient having episode of SOB stating that it feels like "water" is on his chest. Sitting up in bed patient RR 24, O2 sat 100% on 2L NC. Notified MD on-call. new order for STAT CXR. Called Radiology -tech aware. Patient continues to have mental awareness and is A&Ox4.
[2021-03-21] VITALS: BP 123/68
--- NOTE | 2021-03-21 01:06 | NUR ---
called outsourcing center that reads STAT CXR after hours and communicated that it has been 1 hour and there is still no read. Industrial Automation Specialist assured that it will be read shortly.
--- NOTE | 2021-03-21 01:26 | NUR ---
Patient appears stable now RR 19, still says he feels like there is fluid on his chest and somewhat short of breath but sitting up in bed helps patient. Is able to talk in full sentences. A&Ox4. O2 sat 98% on 2L NC. New order for Albuterol breathing treatment from APPRENTICESHIP REPRESENTATIVE. Initial treatment now.
[2021-03-21] MEDS ORDERED: ALBUTEROL FS 2.5 MG/3 ML VIAL.NEB NEB SCH (01:30)
[2021-03-21] MEDS: ALBUTEROL FS 2.5 MG/3 ML VIAL.NEB NEB SCH ×4 (02:02→19:45)
[2021-03-21 04:00] VITALS: BP 139/69
--- NOTE | 2021-03-21 06:56 | NUR ---
Patient still says he feels like there is fluid on his chest but is feeling better than earlier in the night. O2 sats above 94% throughout night on 2L NC. c/o pain to L hand relieved by PRN [place] 10/325. No obvious signs of bleeding.
[2021-03-21 07:05] LABS: EOSINOPHILS % (AUTO) 9.1 % (0.0-6.0); HEMATOCRIT 23 % (39-51); HEMOGLOBIN 7.6 g/dL (13.5-17.5); LYMPHOCYTES # (AUTO) 0.6 K/uL (0.8-4.8); LYMPHOCYTES % (AUTO) 20.5 % (20.0-44.0); MEAN CORPUSCULAR HGB CONC 33 g/dl (31.0-36.0); MEAN CORPUSCULAR VOLUME 87 fL (80-96); MONOCYTES # (AUTO) 0.5 K/uL (0.1-1.30); MONOCYTES % (AUTO) 14.7 % (2.0-12.0); NEUTROPHILS # (AUTO) 1.7 K/uL (1.8-8.9); NEUTROPHILS % (AUTO) 54.7 % (43.0-81.0); PLATELET COUNT (AUTO) 112 K/uL (150-450); RED BLOOD CELL COUNT(AUTO) 2.63 MIL/uL (4.5-6.0); WHITE BLOOD COUNT (AUTO) 3.1 K/uL (4.3-11.0)
[2021-03-21 07:18] LABS: CALCIUM, SERUM 7.8 mg/dL (8.5-10.1); CREATININE 6.5 mg/dL (0.6-1.3); POTASSIUM 4.7 mmol/L (3.5-5.1)
[2021-03-21] MEDS: PANTOPRAZOLE 40 MG TABLET.DR PO SCH (07:30)
--- NOTE | 2021-03-21 07:52 | NUR ---
RN OPENING NOTE PT AWAKE IN BED. ON 2L NC WITH NO RESPIRATORY DISTRESS. COMPLAINT OF SOB. A/O X4 AND INDONESIAN SPEAKING. ANXIOUS. NO COMPLAINT OF PAIN OR NAUSEA. NO ASW SPECIALIST. NO EDEMA. SELF AMBULATORY WITH BATHROOM PRIVILEGES. SKIN IS INTACT. MIDLINE PRESENT ON LISE 18 AND FLUSHES WELL. AV FISTULA PRESENT ON DORIAN. LABS AND ORDERS REVIEWED. SAFETY MEASURES IN PLACE. SIDE RAILS RAISED. BED LOWERED. CALL LIGHT WITHIN REACH. WILL CONTINUE TO MONITOR.
[2021-03-21 08:00] VITALS: BP 148/60
--- NOTE | 2021-03-21 08:00 | NUR ---
RN OPENING NOTE PT AWAKE IN BED RESTING. A/O X3 AND [place] SPEAKING. ON 2L NC WITH NO SOB OR RESPIRATORY DISTRESS PRESENT. NO COMPLAINT OF PAIN OR NAUSEA. NO LABOR EXPEDITER. NO EDEMA PRESENT. SELF AMBULATORY WITH BATHROOM PRIVILEGES. SKIN IS INTACT. LISE MIDLINE PRESENT AND FLUSHES WELL. DORIAN AV FISTULA PRESENT. LABS AND ORDERS REVIEWED. SAFETY MEASURES IN PLACE. SIDE RAILS RAISED. BED LOWERED. CALL LIGHT WITHIN REACH. WILL CONTINUE TO MONITOR.
[2021-03-21] MEDS: MEROPENEM 500 MG in IV NS 0.9% 50 ML IV SCH (08:49)
[2021-03-21] MEDS: SEVELAMER CARBONATE 800 MG TABLET PO SCH ×3 (08:49→17:11)
[2021-03-21] MEDS: MINOXIDIL (2.5MG) 2.5 MG TABLET PO SCH (08:50)
[2021-03-21] MEDS: hydrALAZINE HCL 25 MG TABLET PO SCH ×3 (08:50→17:11)
[2021-03-21] MEDS: LISINOPRIL (20MG) 20 MG TABLET PO SCH (08:50)
[2021-03-21] MEDS: NIFEdipine XL (30MG) 30 MG TAB PO SCH (08:51)
[2021-03-21] MEDS: ASCORBIC ACID 500 MG TABLET PO SCH (08:51)
[2021-03-21] MEDS: MULTIVITAMINS,THERAGRAN 1 UDTAB TABLET PO SCH (08:51)
[2021-03-21] MEDS: hydrOXYzine PAMOATE 25 MG CAPSULE PO PRN ×2 (09:34→21:28)
[2021-03-21] MEDS ORDERED: DOLU50TA PO (09:44)
[2021-03-21] MEDS ORDERED: HOME MED MISCELLANEOUS XX SCH (10:30)
[2021-03-21] MEDS ORDERED: DAPSONE 25 MG TABLET PO SCH (12:00)
[2021-03-21] MEDS: LABETALOL HCL (100MG) 100 MG TABLET PO SCH ×2 (12:03→23:23)
[2021-03-21] MEDS ORDERED: CEFEPIME 1 GM in IV D5W 50 ML IV SCH (12:30)
--- NOTE | 2021-03-21 13:51 | NUR ---
RT ABG REFUSED BY PT. CHARGE NURSE ADRIENNE STOREY NOTIFIED AND AWARE.
[2021-03-21] MEDS ORDERED: SOD FERRIC GLUC 125 MG in IV NS 0.9% 100 ML IV SCH (14:00)
[2021-03-21] MEDS ORDERED: TENOFOVIR DISOPROXIL FUMARATE 300 MG TABLET PO SCH ×2 (15:00→21:00)
[2021-03-21] MEDS: CEFEPIME 2 GM in IV D5W 100 ML IV SCH (15:27)
[2021-03-21 16:00] VITALS: BP 135/74
[2021-03-21] MEDS: LAMIVUDINE (150MG) 150 MG TABLET PO SCH (17:11)
[2021-03-21] MEDS: RALTEGRAVIR POTASSIUM 400 MG TABLET PO SCH (17:11)
[2021-03-21] MEDS: HYDROCODONE/APAP 10/325MG TABLET PO PRN (17:13)
--- NOTE | 2021-03-21 18:08 | NUR ---
RN CLOSING NOTE PT AWAKE IN BED RESTING. A/O X3 AND FINNISH SPEAKING. ON 2L NC WITH NO SOB OR RESPIRATORY DISTRESS PRESENT. NO COMPLAINT OF PAIN OR NAUSEA. NO SPECIAL PROGRAMS DIRECTOR. NO EDEMA PRESENT. SELF AMBULATORY WITH BATHROOM PRIVILEGES. SKIN IS INTACT. LISE MIDLINE PRESENT AND FLUSHES WELL. DORIAN AV FISTULA PRESENT.S/P THORACENTESIS WITH 2.4 L OUT. SPECIMEN TO BE SENT OT LAB. LABS AND ORDERS REVIEWED. SAFETY MEASURES IN PLACE. SIDE RAILS RAISED. BED LOWERED. CALL LIGHT WITHIN REACH. WILL GIVE REPORT TO NIGHT NURSE FOR VERENICE.
[2021-03-21] MEDS ORDERED: diphenhydrAMINE HCL 50 MG/ML VIAL IV ONE (19:30)
--- NOTE | 2021-03-21 19:34 | NUR ---
RN NOTE ATTEMPTED TO CALL ID DR ARMSTRONG FOR MILD ALLERGIC REACTION TO CEFEPIME (RASHES). NO ANSWER FROM OFFICE.
[2021-03-21 20:00] VITALS: BP 107/56
--- NOTE | 2021-03-21 20:48 | NUR ---
MS/TELE/RN SPOKE WITH THE PATIENT RE: DEVELOPED RASHES DUE TO CEFEPIME. PER PATIENT HE DID NOT EXPERIENCE ANY RASHES/ALLERGY BECAUSE OF A MEDICATION HERE, PATIENT FURTHER STATED THAT HE HAS RASHES AND ITCHING ONCE A WHILE BUT HE APPLIES HYDROCORTISONE AND THE ITCHING/RASHES GO AWAY. PATIENT ALSO SAID, "MAYBE I AM NOT THE PATIENT YOU ARE TALKING ABOUT". PATIENT REITERATE THAT HE DID NOT DEVELOP ANY RASHES AND ITCHING BECAUSE OF A MEDICATION. INFORMED PHARMACIST, SERVANDO, WHO SAID TO CONTINUE WITH THE ADMINISTRATION OF CEFEPIME. CHARGE NURSE MICHELLE, MADE AWARE.
--- NOTE | 2021-03-21 21:35 | NUR ---
MS/TELE/RN C/O ITCHING AND REQUESTED FOR VISTARIL, PER PATIENT HE TAKES THIS MEDICATION WHEN HE IS ITCHING PRIOR TO ADMISSION. VISTARIL PO WAS GIVEN ORDERED.
--- NOTE | 2021-03-21 21:37 | NUR ---
MS/TELE/RN PATIENT PULLED OUT HIS MIDLINE, PATIENT SAID IT IS NOT WORKING. REFUSED IV INSERTION AT THIS TIME.
--- NOTE | 2021-03-21 23:04 | NUR ---
MS/TELE/RN PER ASSOCIATE DRAFTER, PATIENT REFUSED BLOOD DRAW. SPOKE TO THE PATIENT AND EXPLAINED IMPORTANCE OF THE LABORATORY TESTS, BUT PATIENT STILL REFUSED, " I DON'T WANT HIM TO TOUCH ME" PATIENT SAID.
--- NOTE | 2021-03-21 23:07 | NUR ---
MS/TELE/RN OFFERED TO INSERT IV, PATIENT REFUSED PERIPHERAL IV, HE WANTS A MIDLINE. INFORMED CHARGE NURSE. CHARGE NURSE SPOKE TO THE NURSING EXPEDITER, BUT THE NURSING EXPEDITER COULD NO LONGER GET THE MIDLINE RN. AT THIS TIME. WILL ENDORSE IN A.M.
[2021-03-22] MEDS: ALBUTEROL FS 2.5 MG/3 ML VIAL.NEB NEB SCH ×4 (01:33→19:32)
[2021-03-22] MEDS: ZOLPIDEM TARTRATE 5 MG TABLET PO PRN (02:14)
--- NOTE | 2021-03-22 06:10 | NUR ---
MS/TELE/RN PATIENT STILL SLEEPING AT THIS THIS TIME, APPEAR COMFORTABLE, NO DISTRESS NOTED, CALL LIGHT IN REACH. ALL NEEDS ATTENDED AT THIS TIME, WILL CONTINUE TO MONITOR.
[2021-03-22 07:35] LABS: BASOPHILS % (AUTO) 0.9 % (0.0-2.0); EOSINOPHILS % (AUTO) 7.8 % (0.0-6.0); HEMATOCRIT 24 % (39-51); HEMOGLOBIN 8.1 g/dL (13.5-17.5); LYMPHOCYTES # (AUTO) 0.7 K/uL (0.8-4.8); MEAN CORPUSCULAR HGB CONC 34 g/dl (31.0-36.0); MEAN CORPUSCULAR VOLUME 86 fL (80-96); MONOCYTES # (AUTO) 0.4 K/uL (0.1-1.30); MONOCYTES % (AUTO) 12.1 % (2.0-12.0); NEUTROPHILS # (AUTO) 2.2 K/uL (1.8-8.9); NEUTROPHILS % (AUTO) 59.2 % (43.0-81.0); PLATELET COUNT (AUTO) 127 K/uL (150-450); WHITE BLOOD COUNT (AUTO) 3.7 K/uL (4.3-11.0)
--- NOTE | 2021-03-22 07:43 | NUR ---
MS RN OPENING NOTES RECEIVED PATIENT IN BED, AWAKE, A/O X4. PATIENT ON OXYGEN THERAPY AT 3 LPM VIA NASAL CANNULA; BREATHING EVEN AND UNLABORED AT THIS TIME. NO COMPLAINS OF PAIN AT THE MOMENT. PATIENT HAS NO IV LINE AND IS REFUSING A REGULAR IV ACCESS. PATIENT WANTS A MIDLINE. SAFETY PRECAUTIONS IN PLACE; BED IN LOW POSITION AND LOCKED, RAILS UP X2, CALL LIGHT WITHIN REACH. WILL CONTINUE TO MONITOR PATIENT.
[2021-03-22 08:00] VITALS: BP 145/84
[2021-03-22 08:00] LABS: CALCIUM, SERUM 8.5 mg/dL (8.5-10.1); POTASSIUM 5.3 mmol/L (3.5-5.1)
[2021-03-22 08:08] LABS: CREATININE 8.1 mg/dL (0.6-1.3)
[2021-03-22] MEDS: SEVELAMER CARBONATE 800 MG TABLET PO SCH ×3 (08:52→17:49)
[2021-03-22] MEDS: PANTOPRAZOLE 40 MG TABLET.DR PO SCH (08:52)
[2021-03-22] MEDS: ASCORBIC ACID 500 MG TABLET PO SCH (08:52)
[2021-03-22] MEDS: hydrALAZINE HCL 25 MG TABLET PO SCH ×3 (08:53→17:00)
[2021-03-22] MEDS: MINOXIDIL (2.5MG) 2.5 MG TABLET PO SCH (08:53)
[2021-03-22] MEDS: NIFEdipine XL (30MG) 30 MG TAB PO SCH (08:53)
[2021-03-22] MEDS: MULTIVITAMINS,THERAGRAN 1 UDTAB TABLET PO SCH (08:53)
[2021-03-22] MEDS: LISINOPRIL (20MG) 20 MG TABLET PO SCH (08:54)
[2021-03-22] MEDS: CEFEPIME 2 GM in IV D5W 100 ML IV SCH ×2 (09:00→11:30)
--- NOTE | 2021-03-22 09:42 | NUR ---
MS RN NOTES PATIENT MISSING IV LINE, HARD STICK. PATIENT REFUSES REGULAR IV. WANTS ONLY A MIDLINE. CHARGE NURSE AND NURSING GOLF COURSE RANGER AWARE.
[2021-03-22] MEDS: LAMIVUDINE (150MG) 150 MG TABLET PO SCH (10:28)
[2021-03-22] MEDS: RALTEGRAVIR POTASSIUM 400 MG TABLET PO SCH ×2 (10:28→17:48)
[2021-03-22] MEDS: LABETALOL HCL (100MG) 100 MG TABLET PO SCH ×2 (11:00→23:01)
--- NOTE | 2021-03-22 13:01 | NUR ---
[facility]G Addendum: 03/22/21 at 1302 by ISAI MENSAH RT Amended: Links added.
[2021-03-22] MEDS ORDERED: LIDOCAINE 1% INJ 50 ML MDV IJ ONE (16:00)
[2021-03-22 16:02] VITALS: BP 180/106
--- NOTE | 2021-03-22 16:10 | NUR ---
MS RN NOTES PATIENT STARTED DIALYSIS
[2021-03-22] MEDS: diphenhydrAMINE HCL 50 MG/ML VIAL IV PRN ×2 (16:12→17:05)
--- NOTE | 2021-03-22 18:28 | NUR ---
MS RN NOTES 1700 HYDRALAZINE NON-ADMINISTERED. PATIENT STILL IN DIALYSIS.
[2021-03-22] MEDS ORDERED: MORPHINE SULFATE INJ 4 MG/ML DISP.SYRIN IV PRN (18:30)
--- NOTE | 2021-03-22 19:14 | NUR ---
MS RN CLOSING NOTES PATIENT REMAINS IN BED, AWAKE, A/O X4, ON DIALYSIS. PATIENT ON OXYGEN THERAPY AT 3 LPM VIA NASAL CANNULA; BREATHING EVEN AND UNLABORED AT THIS TIME. NO COMPLAINS OF PAIN AT THE MOMENT. LISE MIDLINE PRESENT AND INTACT. ALL NEEDS ATTENDED DURING THE DAY. SAFETY PRECAUTIONS IN PLACE; BED IN LOW POSITION AND LOCKED, RAILS UP X2, CALL LIGHT WITHIN REACH. WILL ENDORSE TO SPORTS MARKETER NURSE.
[2021-03-22 20:00] VITALS: BP 150/65
--- NOTE | 2021-03-22 20:36 | NUR ---
MS/TELE/RN PATIENT IS S/P HD, JUST FINISHED, PATIENT IS PRESENTLY SITTING IN BED USING LAPTOP COMPUTER, PATIENT IS AWAKE, ALERT AND ORIENTED, COMFORTABLE, NO C/O PAIN, NO DISTRESS NOTED, CALL LIGHT IN REACH, ALL NEEDS ATTENDED AT THIS TIME, WILL MONITOR.
[2021-03-22] MEDS: hydrOXYzine PAMOATE 25 MG CAPSULE PO PRN (21:24)
[2021-03-22] MEDS: HYDROCODONE/APAP 10/325MG TABLET PO PRN (21:43)
[2021-03-23] MEDS: ALBUTEROL FS 2.5 MG/3 ML VIAL.NEB NEB SCH ×3 (00:27→13:54)
[2021-03-23] MEDS: ZOLPIDEM TARTRATE 5 MG TABLET PO PRN (02:35)
[2021-03-23] MEDS: HYDROCODONE/APAP 10/325MG TABLET PO PRN ×2 (06:05→12:54)
--- NOTE | 2021-03-23 06:31 | NUR ---
MS/TELE/RN PATIENT APPEARS SLEEPING AT THIS TIME, APPEARS COMFORTABLE, NO SIGNS OF DISTRESS NOTED, CALL LIGHT IN REACH, ALL NEEDS ATTENDED AT THIS TIME, WILL CONTINUE TO MONITOR.
--- NOTE | 2021-03-23 07:05 | NUR ---
RN OPENING NOTE RECEIVED PATIENT SITTING IN BED. A/O X4. ON ROOM AIR, NO SOB NOTED. IN NO APPARENT DISTRESS. DENIES ANY PAIN OR DISCOMFORT AT THIS TIME. IV ACCESS ON LISE MIDLINE C/D/I, INTACT AND PATENT. ABLE TO MAKE NEEDS KNOWN. SAFETY MEASURES MAINTAINED. BED IN LOWEST POSITION, BRAKES LOCKED. SIDE RAILS UP X2. CALL LIGHT WITHIN REACH. WILL CONTINUE PLAN OF CARE. Addendum: 03/23/21 at 1020 by BRITTNY LONDON RN *ON AT 2 LPM VIA NC
[2021-03-23 07:06] LABS: *BASOS 1 % (Not Estab.); *EOS 8 % (Not Estab.); *EOS, ABSOLUTE 0.3 x10E3/uL (0.0-0.4); *HGB 8.2 g/dL (13.0-17.7); *IMMATURE GRANULOCYTES 1 % (Not Estab.); *LYMPHOCYTES 21 % (Not Estab.); *LYMPHS, ABSOLUTE 0.8 x10E3/uL (0.7-3.1); *MCH 27.5 pg (26.6-33.0); *MCHC 30.4 g/dL (31.5-35.7); *MCV 91 fL (79-97); *MONOCYTES 10 % (Not Estab.); *MONOS, ABSOLUTE 0.4 x10E3/uL (0.1-0.9); *NEUTROPHILS 59 % (Not Estab.); *NEUTROPHILS, ABSOLUTE 2.2 x10E3/uL (1.4-7.0); *PLT 135 x10E3/uL (150-450); *RBC 2.98 x10E6/uL (4.14-5.80); *RDW 15.5 % (11.6-15.4)
[2021-03-23] MEDS: MINOXIDIL (2.5MG) 2.5 MG TABLET PO SCH (08:22)
[2021-03-23] MEDS: LISINOPRIL (20MG) 20 MG TABLET PO SCH (08:22)
[2021-03-23] MEDS: MULTIVITAMINS,THERAGRAN 1 UDTAB TABLET PO SCH (08:23)
[2021-03-23] MEDS: ASCORBIC ACID 500 MG TABLET PO SCH (08:23)
[2021-03-23] MEDS: hydrALAZINE HCL 25 MG TABLET PO SCH ×2 (08:23→12:53)
[2021-03-23] MEDS: SEVELAMER CARBONATE 800 MG TABLET PO SCH ×2 (08:23→12:53)
[2021-03-23] MEDS: PANTOPRAZOLE 40 MG TABLET.DR PO SCH (08:23)
[2021-03-23] MEDS: NIFEdipine XL (30MG) 30 MG TAB PO SCH (08:23)
[2021-03-23 08:26] VITALS: BP 163/92
[2021-03-23 08:40] LABS: BASOPHILS % (AUTO) 0.7 % (0.0-2.0); EOSINOPHILS % (AUTO) 8.2 % (0.0-6.0); HEMATOCRIT 23 % (39-51); HEMOGLOBIN 7.7 g/dL (13.5-17.5); LYMPHOCYTES # (AUTO) 0.6 K/uL (0.8-4.8); LYMPHOCYTES % (AUTO) 18.8 % (20.0-44.0); MEAN CORPUSCULAR HGB CONC 33 g/dl (31.0-36.0); MEAN CORPUSCULAR VOLUME 87 fL (80-96); MONOCYTES # (AUTO) 0.3 K/uL (0.1-1.30); NEUTROPHILS # (AUTO) 1.9 K/uL (1.8-8.9); NEUTROPHILS % (AUTO) 62.3 % (43.0-81.0); PLATELET COUNT (AUTO) 120 K/uL (150-450); RED BLOOD CELL COUNT(AUTO) 2.63 MIL/uL (4.5-6.0); WHITE BLOOD COUNT (AUTO) 3.1 K/uL (4.3-11.0)
[2021-03-23] MEDS: LAMIVUDINE (150MG) 150 MG TABLET PO SCH (09:06)
[2021-03-23] MEDS: RALTEGRAVIR POTASSIUM 400 MG TABLET PO SCH (09:06)
[2021-03-23] MEDS: hydrOXYzine PAMOATE 25 MG CAPSULE PO PRN (09:06)
[2021-03-23] MEDS: CEFEPIME 2 GM in IV D5W 100 ML IV SCH (09:07)
[2021-03-23] MEDS ORDERED: CEFE2FRO IV (10:38)
[2021-03-23] MEDS ORDERED: TENO300T5 PO (10:44)
[2021-03-23] MEDS ORDERED: RALT400T PO (10:44)
[2021-03-23] MEDS ORDERED: HYDR-4076 PO (10:44)
[2021-03-23] MEDS ORDERED: LAMI150T PO (10:44)
[2021-03-23] MEDS: LABETALOL HCL (100MG) 100 MG TABLET PO SCH (10:58)
[2021-03-23 12:09] LABS: CALCIUM, SERUM 8.2 mg/dL (8.5-10.1); CREATININE 6.4 mg/dL (0.6-1.3); POTASSIUM 4.8 mmol/L (3.5-5.1)
--- NOTE | 2021-03-23 13:31 | NUR ---
RN NOTE REPORT GIVEN TO RALEIGH ALSTON FROM [facility] #[phone]
--- NOTE | 2021-03-23 16:15 | NUR ---
RN NOTE PATIENT DISCHARGED. AMBULATORY. A/O X4. P[facility]ED UP BY 2 [facility]. HEALTH TEACHING AND DISCHARGE INSTRUCTIONS GIVEN. PT VERBALIZED UNDERSTANDING. REMOVED ID WRISTBAND. LEFT LISE MIDLINE ACCESS D/T PT STILL HAS TO CONTINUE ABX FOR 4 MORE DAYS. SNF SV WERE INFORMED. ALL FORMS SIGNED.
[2021-03-23 16:25] VITALS: BP 140/88
[2021-03-24 08:06] LABS: IMMUNOGLOBULIN A, SERUM 209 mg/dL (90-386); IMMUNOGLOBULIN G, SERUM 1609 mg/dL (603-1613); IMMUNOGLOBULIN M, SERUM 28 mg/dL (20-172)
[2021-03-24 09:07] LABS: *% CD 4 POS. LYMPH 16.1 % (30.8-58.5); *% CD 8 POS. LYMPH 57.7 % (12.0-35.5); *ABSOLUTE CD 4 HELPER 129 /uL (359-1519); *ABSOLUTE CD 8 SUPPRESSOR 462 /uL (109-897); *CD4/CD8 RATIO 0.28 (0.92-3.72)
[2021-03-24 11:06] LABS: *SPE A/G RATIO 0.9 (0.7-1.7); *SPE ALPHA-1-GLOBULIN 0.3 g/dL (0.0-0.4); *SPE ALPHA-2-GLOBULIN 0.7 g/dL (0.4-1.0); *SPE M-SPIKE Not Observed g/dL (Not Observed)
[2021-03-24 14:07] LABS: *ANA ANTI-CENTROMERE B AB <0.2 AI (0.0-0.9); *ANA ANTI-DNA(DS) AB, QN <1 IU/mL (0-9); *ANA ANTI-JO-1 <0.2 AI (0.0-0.9); *ANA ANTICHROMATIN ANTIBODY <0.2 AI (0.0-0.9); *ANA RNP ANTIBODIES <0.2 AI (0.0-0.9); *ANA SJOGREN'S ANTI-SS-A <0.2 AI (0.0-0.9); *ANA SJOGREN'S ANTI-SS-B <0.2 AI (0.0-0.9); *ANAANTI-SCLERODERMA-70 AB <0.2 AI (0.0-0.9); *ANASMITH AB <0.2 AI (0.0-0.9)
[2021-03-25 08:07] LABS: HEPATITIS Be AB Negative (Negative)
[2021-03-26 16:07] LABS: *HIV-1 RNA BY PCR 113940 copies/mL (.); *HIV-1 log10 RNA 5.057 (.)
== END 2021-03-23 16:20 | DRG 280 ==
LOC: ER 20:39 → TELE-TD 03-19 01:46 → MED 03-19 02:26
PROVIDERS: ADMIT Nurse Practitioner Acute Care; ATTEND Nurse Practitioner Acute Care
PROC: 30233N1 Transfusion of Nonautologous Red Blood Cells into Peripheral Vein, Percutaneous Approach (ICD-10-PCS; 2021-03-18)
PROC: 5A1D70Z Performance of Urinary Filtration, Intermittent, Less than 6 Hours Per Day (ICD-10-PCS; principal; 2021-03-19)
PROC: 05H933Z Insertion of Infusion Device into Right Brachial Vein, Percutaneous Approach (ICD-10-PCS; 2021-03-19)
PROC: 0W993ZZ Drainage of Right Pleural Cavity, Percutaneous Approach (ICD-10-PCS; 2021-03-21)
PROC: 05HY33Z Insertion of Infusion Device into Upper Vein, Percutaneous Approach (ICD-10-PCS; 2021-03-22)
PROC: 0RSTXZZ Reposition Left Carpometacarpal Joint, External Approach (ICD-10-PCS; 2021-03-23)
DX: I13.2 Hypertensive heart and chronic kidney disease with heart failure and with stage 5 chronic kidney disease, or end stage renal disease (principal); N18.6 End stage renal disease; I21.A1 Myocardial infarction type 2; I50.33 Acute on chronic diastolic (congestive) heart failure; J18.9 Pneumonia, unspecified organism; J96.01 Acute respiratory failure with hypoxia; D61.818 Other pancytopenia; B19.10 Unspecified viral hepatitis B without hepatic coma; J90 Pleural effusion, not elsewhere classified; J98.11 Atelectasis; Z99.2 Dependence on renal dialysis; Z91.15 Patient's noncompliance with renal dialysis; Z20.822 Contact with and (suspected) exposure to COVID-19; Z88.1 Allergy status to other antibiotic agents; Z88.0 Allergy status to penicillin; D64.9 Anemia, unspecified; E87.5 Hyperkalemia; D72.819 Decreased white blood cell count, unspecified; D69.59 Other secondary thrombocytopenia; K74.60 Unspecified cirrhosis of liver; E03.9 Hypothyroidism, unspecified; Z90.5 Acquired absence of kidney; Z86.74 Personal history of sudden cardiac arrest; D72.10 Eosinophilia, unspecified; S63.115A Dislocation of metacarpophalangeal joint of left thumb, initial encounter; X58.XXXA Exposure to other specified factors, initial encounter; Y92.9 Unspecified place or not applicable
CPT/HCPCS: 36410; 36415; 71045-TC; 73130-TC; 76700-TC; 80048-TC; 80061-TC; 80076-TC; 82040-TC; 82272-TC; 82728-TC; 82784; 83540-TC; 83605-TC; 83735-TC; 83880; 84100-TC; 84155; 84165; 84439-TC; 84443-TC; 84484-TC; 85025-TC; 85610-TC; 86225; 86235; 86334; 86360; 86431-TC; 86706; 86707; 86709-TC; 86803; 86850-TC; 87040-TC; 87070-TC; 87075-TC; 87081-TC; 87102-TC; 87340; 87350; 87517; 87536; 87806; 89051-TC; 90935-TC; 94799-TC; C9803; G0378; J0692; J1200; J2185; J2270; J3490; J7030; J7060; P9016; Q0177

== ENCOUNTER 2021-03-24 02:21 | Inpatient (IN) | payer MEDICARE, OTHER ==
[~2021-03-24] VITALS: Ht 182.9 cm; Wt 81.6 kg
[~2021-03-24 02:21] MED LIST: ACET-868 PO; ALBU8.5H8 IH; ASCO-352 PO; CEFE2FRO IV; CLON0.3P TD; DOLU50TA PO; HYDR-4076 PO; HYDR50TA61 PO; LABE200T5 PO; LAMI150T PO; LISI40TA13 PO; MAG30ORA PO; MINO2.5T2 PO; MULT-447 PO; NIFE90TA61 PO; PANT40TA2 PO; RALT400T PO; SEVE800T28 PO; TENO300T5 PO
--- NOTE | 2021-03-24 02:28 | NUR ---
Note undone in EDM - 03/24/21 at 0315 by CRISTINA pt bibra c/o sob x1700 that is worse when laying down. Pt aaox4 breathing evenly and unlabored. Pt skin warm and dry. Upon assessment, pt has picc line in RU. Per pt, he had dialysis and thoracentisis yesterday while admitted to hospital. He has freda PARRA MD at bedside for eval. pt given blanket and call light within reach.
--- NOTE | 2021-03-24 02:28 | NUR ---
pt bibra c/o sob x1700 that is worse when laying down. Pt aaox4 breathing evenly and unlabored. Pt skin warm and dry. Upon assessment, pt has picc line in RUE. Pt 95% RA, but placed on 2L O2 for comfort. Per pt, he had dialysis and thoracentisis yesterday while admitted to hospital. He has freda PARRA MD at bedside for eval. pt given blanket and call light within reach.
--- NOTE | 2021-03-24 02:45 | NUR ---
blood sent to lab
[2021-03-24 02:47] LABS: BASOPHILS % (AUTO) 0.7 % (0.0-2.0); EOSINOPHILS % (AUTO) 10.3 % (0.0-6.0); HEMATOCRIT 23 % (39-51); HEMOGLOBIN 7.7 g/dL (13.5-17.5); LYMPHOCYTES # (AUTO) 0.7 K/uL (0.8-4.8); LYMPHOCYTES % (AUTO) 21.4 % (20.0-44.0); MEAN CORPUSCULAR HGB CONC 34 g/dl (31.0-36.0); MEAN CORPUSCULAR VOLUME 86 fL (80-96); MONOCYTES # (AUTO) 0.3 K/uL (0.1-1.30); NEUTROPHILS % (AUTO) 59.6 % (43.0-81.0); PLATELET COUNT (AUTO) 123 K/uL (150-450); RED BLOOD CELL COUNT(AUTO) 2.66 MIL/uL (4.5-6.0); WHITE BLOOD COUNT (AUTO) 3.4 K/uL (4.3-11.0)
[2021-03-24 02:50] LABS: CALCIUM, SERUM 8.2 mg/dL (8.5-10.1); POTASSIUM 5.2 mmol/L (3.5-5.1)
--- NOTE | 2021-03-24 02:57 | NUR ---
xray at bedside
[2021-03-24 02:59] LABS: CREATININE 7.8 mg/dL (0.6-1.3)
--- NOTE | 2021-03-24 02:59 | NUR ---
per lab, creatinine 7.8
[2021-03-24 04:02] LABS: EOSINOPHILS % (MANUAL) 10 % (0-4); LYMPHOCYTES % (MANUAL) 23 % (16-48); MONOCYTES % (MANUAL) 9 % (0-11.0); NEUTROPHILS % (MANUAL) 58 (42-76)
--- NOTE | 2021-03-24 04:15 | NUR ---
pt given urinal, needs met
[2021-03-24] MEDS ORDERED: MORPHINE SULFATE INJ 4 MG/ML DISP.SYRIN ONE (04:20)
[2021-03-24] MEDS ORDERED: ONDANSETRON HCL/PF 4 MG/2 ML VIAL ONE (04:20)
[2021-03-24] MEDS ORDERED: MORPHINE SULFATE INJ 2 MG/ML DISP.SYRIN IV ONE (04:30)
[2021-03-24] MEDS ORDERED: ONDANSETRON HCL/PF 4 MG/2 ML VIAL IV ONE (04:30)
--- NOTE | 2021-03-24 05:15 | NUR ---
pt sitting quietly in room. attached to monitor.
[2021-03-24] MEDS ORDERED: ONDANSETRON HCL/PF 4 MG/2 ML VIAL IVP PRN (06:00)
[2021-03-24] MEDS ORDERED: ACETAMINOPHEN 325 MG TABLET PO PRN ×2 (06:00)
[2021-03-24] MEDS ORDERED: MAG HYDROX/AL HYDROX/SIMETH 30 ML UDC PO PRN ×2 (06:00)
[2021-03-24] MEDS ORDERED: MAGNESIUM HYDROXIDE 30 ML UDC PO PRN (06:00)
[2021-03-24] MEDS ORDERED: Z GUARD REMEDY 2 OZ OINT TP PRN (06:00)
[2021-03-24] MEDS ORDERED: PANTOPRAZOLE 40 MG TABLET.DR PO SCH (07:30)
[2021-03-24] MEDS: PANTOPRAZOLE 40 MG TABLET.DR PO SCH (07:31)
[2021-03-24] MEDS ORDERED: PANTOPRAZOLE 40 MG TABLET.DR PO ONE (07:31)
[2021-03-24] MEDS ORDERED: HYDROCODONE/APAP 5/325MG TABLET ONE (07:43)
--- NOTE | 2021-03-24 07:50 | NUR ---
waste Lincoln 5/325mg, patient refused the medication.
--- NOTE | 2021-03-24 07:51 | NUR ---
pt going to 311.
--- NOTE | 2021-03-24 07:54 | NUR ---
report given to Ladan STOREY for shana.
[2021-03-24] MEDS ORDERED: ALBUTEROL FS 2.5 MG/3 ML VIAL.NEB IH PRN (08:00)
--- NOTE | 2021-03-24 08:23 | NUR ---
wheeled patient via gurney accompanied by RN and emt in no distress. RN assigned to patient at bedside to assume care.
[2021-03-24] MEDS: CEFEPIME 2 GM in IV D5W 100 ML IV SCH ×2 (09:00→11:33)
[2021-03-24] MEDS ORDERED: MINOXIDIL (2.5MG) 2.5 MG TABLET PO SCH (09:00)
--- NOTE | 2021-03-24 09:00 | NUR ---
TELE ADMISSION NOTE RECEIVED PATIENT ADMISSION. PATIENT WAS BROUGHT BY [facility] ED RN. PATIENT IS ALERT AND ORIENTED X4. NO S/S OF DISTRESS, WITH INCREASED RESPIRATIONS. C/O PAIN 7/10 BACK PAIN. IV ACCESS LISE PICC PATENT AND INTACT. ORIENTED PATIENT TO UNIT AND STAFF. CALL LIGHT IS WITHIN REACH. SAFETY MEASURES IN PLACE WITH BED LOCKED AT LOW POSITION AND SIDE RAILS UP X2. WILL CONTINUE TO MONITOR THROUGHOUT SHIFT.
[2021-03-24] MEDS: hydrALAZINE HCL 25 MG TABLET PO SCH ×3 (09:12→16:25)
[2021-03-24] MEDS: LISINOPRIL (10MG) 10 MG TABLET PO SCH (09:13)
[2021-03-24] MEDS: ASCORBIC ACID 500 MG TABLET PO SCH (09:13)
[2021-03-24] MEDS: NIFEdipine XL (30MG) 30 MG TAB PO SCH (09:13)
[2021-03-24] MEDS: LABETALOL HCL (100MG) 100 MG TABLET PO SCH (09:13)
[2021-03-24] MEDS: SEVELAMER CARBONATE 800 MG TABLET PO SCH ×3 (09:15→17:51)
--- NOTE | 2021-03-24 10:00 | NUR ---
AMUSEMENT OR RECREATION CARD CHECKER NOTE CALLED PHARMACY REGARDING IV ABX CEFIPIME UNAVAILABLE IN CASSETTE. AWAITING FOR PHARM TO BRING UP TO UNIT.
[2021-03-24] MEDS: LAMIVUDINE (150MG) 150 MG TABLET PO SCH (10:24)
[2021-03-24] MEDS: RALTEGRAVIR POTASSIUM 400 MG TABLET PO SCH ×2 (10:24→16:25)
--- NOTE | 2021-03-24 11:33 | NUR ---
OIL WELL LOGGER NOTE ADMINISTERED CEFIPIME ABX AT THIS TIME WHEN IT WAS AVAILABLE IN CASSETTE. PHARMACY AWARE.
[2021-03-24] MEDS: MORPHINE SULFATE INJ 2 MG/ML DISP.SYRIN IV PRN ×3 (11:51→20:30)
--- NOTE | 2021-03-24 16:27 | NUR ---
PLASTIC PRODUCTION MACHINE SETTER NOTE PATIENT REPORTED BACK PAIN 02/18. ADMINISTERED MORPHINE 2MG IVP. WILL REASSESS.
--- NOTE | 2021-03-24 18:38 | NUR ---
ERP CONSULTANT CLOSING NOTE PATIENT IS AWAKE SITTING BED, WATCHING VIDEOS ON IPAD. NO S/S OF DISTRESS. PATIENT REQUESTED INCREASE IN OXYGEN, PT NOW ON 4L. EXTERNAL TELE MONITOR WITH READING OF SR 90'S. IV ACCESS LISE PICC PATENT AND INTACT. ALL NEEDS MET THROUGHOUT SHIFT. CALL LIGHT IS WITHIN REACH. SAFETY MEASURES IN PLACE. WILL ENDORSE CONTINUITY OF CARE TO ONCOMING SHIFT.
--- NOTE | 2021-03-24 19:40 | NUR ---
NEONATAL SOCIAL WORKER OPENING NOTES PATIENT IN BED WATCHING TV, ALERT/ORIENTED X 4, PT ABLE TO MAKE NEEDS KNOWN. PATIENT STABLE ON 4 L OF OXYGEN VIA NC, NO S/S OF DISTRESS OR SOB NOTED, BREATHING EVEN AND UNLABORED. PATIENT ON TELE MONITORING READING SINUS TACHY, HR: 104. LISE PICC LINE INTACT AND FLUSHING WELL. PATIENT IS AMBULATORY. SAFETY MEASURES IN PLACE: CALL LIGHT WITHIN REACH, BED LOCKED IN LOW POSITION, SIDE RAILS UP X 2, HOB ELEVATED. WILL CONTINUE TO MONITOR PATIENT
[2021-03-24 20:31] VITALS: BP 127/65
--- NOTE | 2021-03-24 20:45 | NUR ---
CASH RECONCILIATION SPECIALIST NOTE PATIENT STATED THAT HE TAKES LASIX AT HOME BUT DOESN'T KNOW THE DOSAGE, MEDICATION NOT IN HOME MEDS OR INPATIENT MEDS IN MED RECON. CONTACTED DR. KULKARNI REGARDING THIS, NEW ORDER FOR LASIX 80 MG IV X 1. ORDER READ BACK AND CONFIRMED. PATIENT ALSO STATED THAT PRN MORPHINE 2 MG IV Q4H IS NOT EFFECTIVE FOR HIS PAIN, DR. KULKARNI STATED NOT TO MAKE CHANGES TO MORPHINE DOSAGE OR FREQUENCY. WILL CONTINUE TO MONITOR PATIENT
[2021-03-24] MEDS ORDERED: FUROSEMIDE 20 MG/2 ML VIAL IV ONE (21:00)
[2021-03-24 21:30] VITALS: BP 158/92
--- NOTE | 2021-03-24 22:50 | NUR ---
TENNIS DIRECTOR NOTE PATIENT COMPLAINING OF ITCHING, STATED THAT HE TAKES VISTARIL 50 MG PO Q8H AT HOME. CONTACTED DR. KULKARNI REGARDING THIS WITH ORDER TO START PATIENT ON THIS. ORDER READ BACK AND CONFIRMED, ORDER CARRIED OUT. WILL CONTINUE TO MONITOR PATIENT
[2021-03-24] MEDS ORDERED: hydrOXYzine PAMOATE 50 MG CAPSULE PO PRN (23:00)
[2021-03-24] MEDS: HYDROCODONE/APAP 5/325MG TABLET PO PRN (23:06)
[2021-03-24] MEDS ORDERED: diphenhydrAMINE HCL 25 MG CAPSULE PO PRN (23:30)
--- NOTE | 2021-03-24 23:30 | NUR ---
FINANCIAL SYSTEMS ANALYST NOTE VISTARIL 50 MG PO FOR ITCHING NOT STOCKED IN OMNICELL. CONTACTED DR. KULKARNI FOR AN ORDER FOR A DIFFERENT MEDICATION FOR ITCHING. NEW ORDER FOR BENADRYL 25 MG PO Q12H PRN FOR ITCHING. ORDER READ BACK AND CARRIED OUT. WILL CONTINUE TO MONITOR PATIENT
[2021-03-25 00:03] VITALS: BP 164/99
[2021-03-25] MEDS: LABETALOL HCL (100MG) 100 MG TABLET PO SCH ×3 (00:16→20:21)
--- NOTE | 2021-03-25 00:20 | NUR ---
COLD REDUCTION ROLLER NOTES DIDN'T GIVE LABETALOL 200 MG PO DUE @ 2100 BECAUSE LASIX 80 MG IV WAS GIVEN AND DIDN'T WANT BLOOD PRESSURE TO DROP TOO MUCH. MIDNIGHT BP: 164/99, HR: 97. GAVE LABETALOL 200 MG PO AT THIS TIME D/T TO HIGH BP. WILL CONTINUE TO MONITOR PATIENT
--- NOTE | 2021-03-25 02:10 | NUR ---
AGRICULTURAL EXTENSION EDUCATOR NOTES PATIENT LEADS KEEP COMING OFF, PT REFUSED TO HAVE THEM PLACED AGAIN, STATED HE JUST WANTS TO SLEEP. RISKS AND BENEFITS EXPLAINED TO PATIENT BUT STILL REFUSED. WILL CONTINUE TO MONITOR PATIENT
[2021-03-25] MEDS: MORPHINE SULFATE INJ 2 MG/ML DISP.SYRIN IV PRN ×4 (03:14→20:59)
[2021-03-25 04:00] VITALS: BP 158/83
[2021-03-25] MEDS: HYDROCODONE/APAP 5/325MG TABLET PO PRN (06:14)
[2021-03-25 06:22] LABS: BASOPHILS % (AUTO) 0.6 % (0.0-2.0); EOSINOPHILS % (AUTO) 11.4 % (0.0-6.0); HEMATOCRIT 22 % (39-51); HEMOGLOBIN 7.3 g/dL (13.5-17.5); LYMPHOCYTES # (AUTO) 0.8 K/uL (0.8-4.8); LYMPHOCYTES % (AUTO) 20.3 % (20.0-44.0); MEAN CORPUSCULAR HGB CONC 33 g/dl (31.0-36.0); MEAN CORPUSCULAR VOLUME 87 fL (80-96); MONOCYTES # (AUTO) 0.3 K/uL (0.1-1.30); MONOCYTES % (AUTO) 6.4 % (2.0-12.0); NEUTROPHILS # (AUTO) 2.4 K/uL (1.8-8.9); NEUTROPHILS % (AUTO) 61.3 % (43.0-81.0); PLATELET COUNT (AUTO) 124 K/uL (150-450); RED BLOOD CELL COUNT(AUTO) 2.52 MIL/uL (4.5-6.0)
[2021-03-25 07:00] LABS: CALCIUM, SERUM 8.8 mg/dL (8.5-10.1); CARBON DIOXIDE 30 mmol/L (21-32); GLUCOSE 107 mg/dL (74-106); PHOSPHORUS 5.8 mg/dL (2.5-4.9); UREA NITROGEN, BLOOD 61 mg/dL (7-18)
--- NOTE | 2021-03-25 07:00 | NUR ---
GARDENER FLORIST CLOSING NOTES PATIENT IN BED ON HIS PHONE, ALERT/ORIENTED X 4, PT ABLE TO MAKE NEEDS KNOWN. PATIENT STABLE ON 4 L OF OXYGEN VIA NC, NO S/S OF DISTRESS OR SOB NOTED, BREATHING EVEN AND UNLABORED. LISE PICC LINE INTACT AND FLUSHING WELL. PATIENT IS AMBULATORY. MEDICATIONS GIVEN ORDERED, PT NEEDS MET THROUGHOUT SHIFT. SAFETY MEASURES IN PLACE: CALL LIGHT WITHIN REACH, BED LOCKED IN LOW POSITION, SIDE RAILS UP X 2, HOB ELEVATED. WILL ENDORSE TO DAY SHIFT NURSE FOR CONTINUITY OF CARE
[2021-03-25 07:16] LABS: CHOLESTEROL 112 mg/dL (<200); HDL CHOLESTEROL 45 mg/dL (40-60); LDL 41 mg/dL (0-99); THYROID STIMULATING HORMONE 2.691 uIU/mL (0.358-3.74); TRIGLYCERIDES 93 mg/dL (30-150)
[2021-03-25 07:17] LABS: CHLORIDE 100 mmol/L (98-107); SODIUM SERUM 136 mmol/L (136-145)
--- NOTE | 2021-03-25 07:24 | NUR ---
TELE/RN OPENING NOTES RECEIVED PATIENT SETTING ON BED AWAKE ALERT AND ORIENTED X4. PATIENT IS ON 4L OXYGEN VIA NASAL CANNULA. PATIENT IS WITH SOB NOTED. PATIENT COMPLAINED OF PAIN RATED 9/10. WILL CONTINUE TO MONITOR.
[2021-03-25] MEDS: SEVELAMER CARBONATE 800 MG TABLET PO SCH ×3 (07:45→17:16)
[2021-03-25] MEDS: PANTOPRAZOLE 40 MG TABLET.DR PO SCH (07:45)
[2021-03-25 07:50] LABS: CREATININE 9.8 mg/dL (0.6-1.3); POTASSIUM 6.6 mmol/L (3.5-5.1)
[2021-03-25 08:00] VITALS: BP 162/106
[2021-03-25] MEDS ORDERED: SODIUM POLYSTYRENE SULF. PWD 15 GM UDC PO ONE (08:30)
[2021-03-25] MEDS: ASCORBIC ACID 500 MG TABLET PO SCH (08:37)
[2021-03-25] MEDS: MINOXIDIL (2.5MG) 2.5 MG TABLET PO SCH (08:38)
[2021-03-25] MEDS: NIFEdipine XL (30MG) 30 MG TAB PO SCH (08:39)
[2021-03-25] MEDS: LISINOPRIL (10MG) 10 MG TABLET PO SCH (08:43)
[2021-03-25] MEDS: LAMIVUDINE (150MG) 150 MG TABLET PO SCH (08:44)
[2021-03-25] MEDS: RALTEGRAVIR POTASSIUM 400 MG TABLET PO SCH ×2 (08:44→17:16)
[2021-03-25] MEDS: hydrALAZINE HCL 25 MG TABLET PO SCH ×3 (08:55→19:14)
[2021-03-25] MEDS ORDERED: IV NS 0.9% 250 ML IV ONE (09:37)
[2021-03-25] MEDS ORDERED: IOHEXOL-350 100 ML VIAL IV ONE (09:37)
--- NOTE | 2021-03-25 09:41 | NUR ---
TELE/RN NOTES PATIENT IS AWAKE ALERT AND ORIENTED X4. PATIENT IN NO APPARENT RESPIRATORY DISTRESS NOTED NO COMPLAINED OF PAIN. WELDING MACHINE OPERATOR ULTRASONIC BY GOLF SALES MANAGER FOR CT SCAN.
--- NOTE | 2021-03-25 10:12 | NUR ---
TELE/RN NOTES PATIENT IS AWAKE ALERT AND ORIENTED X4. PATIENT IN NO APPARENT RESPIRATORY DISTRESS NOTED NO COMPLAINED OF PAIN. PATIENT CAME BACK FROM RADIOLOGY
--- NOTE | 2021-03-25 11:55 | NUR ---
TELE/RN NOTES DR. SANFORD ORDER BENADRYL 25MG IV Q 6HR PRN NOTED AND CARRIED OUT.
[2021-03-25] MEDS ORDERED: diphenhydrAMINE HCL 50 MG/ML VIAL IV PRN (12:00)
[2021-03-25 16:00] VITALS: BP 152/78
--- NOTE | 2021-03-25 16:04 | NUR ---
14:20 PER RN, NENET PT STILL RECEIVING DIALYSIS UNTIL 16:00. RN WAS INFORMED THAT PROCEDURE WILL BE DONE TOMORROW DUE TO RISK OF PNEUMOTHORAX
[2021-03-25] MEDS: hydrOXYzine PAMOATE 25 MG CAPSULE PO PRN (17:21)
[2021-03-25] MEDS ORDERED: FUROSEMIDE 80 MG TABLET PO SCH (17:30)
--- NOTE | 2021-03-25 19:17 | NUR ---
TELE/RN CLOSING NOTES PATIENT IS ALERT AND ORIENTED X4. PATIENT IS ON 4L OXYGEN VIA NASAL CANNULA. PATIENT IN NO APPARENT RESPIRATORY DISTRESS NOTED. NO COMPLAINED OF PAIN NOTED AT THIS TIME. TELE MONITOR READING SINUS RHYTHM 70-80 BPM. IV ACCESS AT RIGHT UPPER ARM PICC LINE PATENT AND INTACT. HEMODIALYSIS DONE 5L OUTPUT. SEEN AND EXAMINED BY MD WITH ORDERS MADE AND CARRIED OUT. ALL DUE MEDICATIONS WAS GIVEN. SAFETY PRECAUTIONS WAS IN PLACED. BED IN LOWEST POSITION AND LOCKED. SIDERAILS UP X2. CALL LIGHT WITHIN REACH. WILL ENDORSED TO TELECOMMUNICATIONS ENGINEER FOR VERENICE.
--- NOTE | 2021-03-25 19:30 | NUR ---
TRIMMING CUTTER MACHINE OPENING NOTE RECEIVED PT AWAKE IN BED. A/O X4. PT IS ON 4LPM O2 VIA NC TOLERATING WELL. NO SOB OR S/S OF RESPIRATORY DISTRESS NOTED. PT HAS NO C/O PAIN OR DISCOMFORT AT THIS TIME. PT IS ON EXTERNAL MANAGER OF HOUSEKEEPING READING SR AT 92 BPM. IV ACCESS IN LISE PICC LINE SALINE-LOCKED, INTACT AND PATENT. PT NOTED WITH LAV FISTULA INTACT. SAFETY PRECAUTIONS MAINTAINED. BED IN LOWEST LOCKED POSITION, HOB ELEVATED, SIDE RAILS UP X2. CALL LIGHT AND TABLE WITHIN REACH. WILL CONTINUE WITH PLAN OF CARE.
[2021-03-25 20:00] VITALS: BP 133/75
--- NOTE | 2021-03-25 20:59 | NUR ---
RN PAIN PT C/O ACHING PAIN IN THE LOW BACK, RATED 9/10 ON PAIN SCALE. VSS. PER PT REQUEST, ADMINISTERED MORPHINE 2MG IV Q4H PRN FOR PAIN. WILL REASSESS IN 30 MINS AND CONTINUE TO MONITOR.
[2021-03-26] VITALS: BP 146/79
[2021-03-26] MEDS: MORPHINE SULFATE INJ 2 MG/ML DISP.SYRIN IV PRN ×4 (02:48→20:26)
--- NOTE | 2021-03-26 02:48 | NUR ---
RN PAIN PT C/O ACHING PAIN IN THE LOW BACK, RATED 10/10 ON PAIN SCALE. VSS. PER PT REQUEST, ADMINISTERED MORPHINE 2MG IV Q4H PRN FOR PAIN. WILL REASSESS IN 30 MINS AND CONTINUE TO MONITOR.
[2021-03-26] MEDS: hydrOXYzine PAMOATE 25 MG CAPSULE PO PRN ×2 (02:55→21:48)
--- NOTE | 2021-03-26 02:55 | NUR ---
RN NOTE PT C/O ITCHING. PER PT REQUEST, ADMINISTERED VISTARIL 25MG PO Q8H PRN FOR ITCHING. WILL CONTINUE TO MONITOR.
[2021-03-26 04:00] VITALS: BP 146/94
[2021-03-26] MEDS ORDERED: CLONIDINE HCL 0.3 MG/24H PTWK 1 EA PATCH TD SCH (06:00)
--- NOTE | 2021-03-26 06:35 | NUR ---
OVERHEAD GARAGE DOOR HANGER CLOSING NOTE PT IS AWAKE IN BED. A/O X4. PT IS ON 4LPM O2 VIA NC TOLERATING WELL. NO SOB OR S/S OF RESPIRATORY DISTRESS NOTED. PT HAS NO C/O PAIN OR DISCOMFORT AT THIS TIME. PT IS ON EXTERNAL TANNER ROTARY DRUM CONTINUOUS PROCESS READING SR AT 96 BPM. IV ACCESS IS INTACT, PATENT, AND FLUSHING WELL. PT NOTED WITH LAV FISTULA INTACT. ALL NEEDS HAVE BEEN MET. SAFETY PRECAUTIONS MAINTAINED AT ALL TIMES. BED IN LOWEST LOCKED POSITION, HOB ELEVATED, SIDE RAILS UP X2. CALL LIGHT AND TABLE WITHIN REACH. WILL ENDORSE TO ONCOMING NURSE FOR VERENICE.
[2021-03-26 06:45] LABS: BASOPHILS % (AUTO) 0.7 % (0.0-2.0); EOSINOPHILS % (AUTO) 12.3 % (0.0-6.0); HEMATOCRIT 21 % (39-51); HEMOGLOBIN 7.2 g/dL (13.5-17.5); LYMPHOCYTES # (AUTO) 0.6 K/uL (0.8-4.8); LYMPHOCYTES % (AUTO) 23.7 % (20.0-44.0); MEAN CORPUSCULAR HGB CONC 34 g/dl (31.0-36.0); MEAN CORPUSCULAR VOLUME 86 fL (80-96); MONOCYTES # (AUTO) 0.2 K/uL (0.1-1.30); MONOCYTES % (AUTO) 7.4 % (2.0-12.0); NEUTROPHILS # (AUTO) 1.4 K/uL (1.8-8.9); NEUTROPHILS % (AUTO) 55.9 % (43.0-81.0); PLATELET COUNT (AUTO) 120 K/uL (150-450); RED BLOOD CELL COUNT(AUTO) 2.47 MIL/uL (4.5-6.0); WHITE BLOOD COUNT (AUTO) 2.6 K/uL (4.3-11.0)
[2021-03-26 07:01] LABS: CALCIUM, SERUM 7.8 mg/dL (8.5-10.1); CREATININE 6.8 mg/dL (0.6-1.3); POTASSIUM 4.5 mmol/L (3.5-5.1)
--- NOTE | 2021-03-26 07:30 | NUR ---
PRODUCT SAFETY TECHNICAL ASSISTANT NOTES PT IN BED, ASLEEP, EASY TO AROUSE, ALERT AND ORIENTED, NO COMPLAINT OF PAIN OR ANY DISCOMFORT, CALL LIGHT WITHIN REACH, NEEDS ATTENDED.
[2021-03-26 08:00] VITALS: BP 138/80
[2021-03-26] MEDS: CEFEPIME 1 GM in IV D5W 50 ML IV SCH (08:59)
[2021-03-26] MEDS: SEVELAMER CARBONATE 800 MG TABLET PO SCH ×3 (08:59→17:27)
[2021-03-26] MEDS: RALTEGRAVIR POTASSIUM 400 MG TABLET PO SCH ×2 (08:59→16:34)
[2021-03-26] MEDS: LAMIVUDINE (150MG) 150 MG TABLET PO SCH (08:59)
[2021-03-26] MEDS: LISINOPRIL (10MG) 10 MG TABLET PO SCH (09:00)
[2021-03-26] MEDS: MINOXIDIL (2.5MG) 2.5 MG TABLET PO SCH (09:00)
[2021-03-26] MEDS: PANTOPRAZOLE 40 MG TABLET.DR PO SCH (09:01)
[2021-03-26] MEDS: FUROSEMIDE 40 MG TABLET PO SCH ×3 (09:01→16:35)
[2021-03-26] MEDS: NIFEdipine XL (30MG) 30 MG TAB PO SCH (09:01)
[2021-03-26] MEDS: ASCORBIC ACID 500 MG TABLET PO SCH (09:02)
[2021-03-26] MEDS: hydrALAZINE HCL 25 MG TABLET PO SCH ×3 (09:02→16:40)
[2021-03-26] MEDS: LABETALOL HCL (100MG) 100 MG TABLET PO SCH ×2 (09:02→21:32)
[2021-03-26] MEDS: diphenhydrAMINE HCL 50 MG/ML VIAL IV PRN ×2 (13:48→15:26)
[2021-03-26 16:03] VITALS: BP 151/89
--- NOTE | 2021-03-26 18:10 | NUR ---
RN MS NOTES PT IN BED, RESTING, PAIN MEDICATION GIVEN FOR PAIN MANAGEMENT, STATES THAT HE CAN BREATHE BETTER NOW, CALL LIGHT WITHIN REACH, NOTED WITH GOOD APPETITE, COMPLETED HEMODIALYSIS, TOLERATED WELL, PM MEDS GIVEN, ALL NEEDS ATTENDED.
--- NOTE | 2021-03-26 19:59 | NUR ---
splash line operator Opening Notes Patient was last seen sleeping in bed. Pt is A/O X 4. Patient's on 4L of oxygen via nasal cannula with no respiratory distress noted. Patient has a LISE PICC line. Patient's connected to a tele monitor with no cardiac distress noted. Safety precautions implemented: Bed locked, side rails upx2, and call light within reach of the patient. Will continue to monitor the patient.
[2021-03-26 20:00] VITALS: BP 112/61
--- NOTE | 2021-03-26 20:26 | NUR ---
production mechanic tin cans Notes Patient was given 2mg of Morphine IV for 8/10 pain in the abdomen. Will continue to monitor the patient.
[2021-03-27] VITALS: BP 103/55
[2021-03-27 04:00] VITALS: BP 124/70
[2021-03-27] MEDS: MORPHINE SULFATE INJ 2 MG/ML DISP.SYRIN IV PRN ×3 (04:00→16:55)
--- NOTE | 2021-03-27 04:00 | NUR ---
hand hose cutter Notes Patient was given 2mg of Morphine IV for 8/10 pain in the abdomen. Will continue to monitor the patient.
--- NOTE | 2021-03-27 07:25 | NUR ---
RN Notes Patient seen in bed resting, awake and verbally responsive. A/O X4, able to make needs known. About to eat breakfast but requests pain medication. On 4L of oxygen via nasal cannula, breathing even and unlabored, no respiratory distress noted. LISE PICC line intact and patent. On tele monitoring, reading of sr, no cardiac distress noted. Safety precautions implemented. Will continue to monitor the patient.
[2021-03-27 08:00] VITALS: BP 124/78
[2021-03-27] MEDS: RALTEGRAVIR POTASSIUM 400 MG TABLET PO SCH ×2 (08:34→16:54)
[2021-03-27] MEDS: SEVELAMER CARBONATE 800 MG TABLET PO SCH ×2 (08:34→13:41)
[2021-03-27] MEDS: ASCORBIC ACID 500 MG TABLET PO SCH (08:35)
[2021-03-27] MEDS: FUROSEMIDE 40 MG TABLET PO SCH ×3 (08:35→16:54)
[2021-03-27] MEDS: LAMIVUDINE (150MG) 150 MG TABLET PO SCH (08:35)
[2021-03-27] MEDS: PANTOPRAZOLE 40 MG TABLET.DR PO SCH (08:35)
[2021-03-27] MEDS: NIFEdipine XL (30MG) 30 MG TAB PO SCH (08:36)
[2021-03-27] MEDS: LISINOPRIL (10MG) 10 MG TABLET PO SCH (08:36)
[2021-03-27] MEDS: MINOXIDIL (2.5MG) 2.5 MG TABLET PO SCH (08:36)
[2021-03-27] MEDS: hydrALAZINE HCL 25 MG TABLET PO SCH ×3 (08:37→16:11)
[2021-03-27] MEDS: LABETALOL HCL (100MG) 100 MG TABLET PO SCH (08:37)
[2021-03-27] MEDS: CEFEPIME 1 GM in IV D5W 50 ML IV SCH (08:52)
[2021-03-27 11:47] VITALS: BP 123/62
--- NOTE | 2021-03-27 12:42 | NUR ---
RN NOTES DIALYSIS NURSE CURRENTLY AT BEDSIDE FOR HD.
[2021-03-27] MEDS: diphenhydrAMINE HCL 50 MG/ML VIAL IV PRN ×2 (13:32→14:48)
[2021-03-27 16:00] VITALS: BP 105/60
[2021-03-27 16:11] VITALS: BP 105/60
--- NOTE | 2021-03-27 16:48 | NUR ---
RN NOTES PATIENT REPORT AND DISCHARGE INSTRUCTION/EDUCATION GIVEN TO RALEIGH DUVAL COIN MACHINE ASSEMBLER AT [facility].
--- NOTE | 2021-03-27 16:49 | NUR ---
RN NOTES DIALYSIS NURSE FINISHED HD W/ PATIENT; OUTPUT OF 2.6L. VSS.
--- NOTE | 2021-03-27 17:23 | NUR ---
RN NOTES PATIENT WAS SEEN BY DR. SANFORD TODAY W/ ORDER FOR DISCHARGE BACK TO [facility]. DISCHARGE INSTRUCTIONS AND EDUCATION PROVIDED TO PATIENT AND TO RN DIGITAL MEDIA DESIGNER AT SNF; MED RECON DONE AND SENT W/ PATIENT'S DISCHARGE FOLDER. DISCHARGE FORM AND BELONGINGS LIST FORM SIGNED BY PATIENT; ALL BELONGINGS ACCOUNTED FOR. PICC LINE KEPT INTACT FOR CONTINUATION OF IV ATB. NO SKIN ISSUES NOTED. EMT AT BEDSIDE TO PICKUP PATIENT; BEDSIDE ENDORSEMENT DONE. CHARGE NURSE AND MD AWARE OF DISCHARGE.
[2021-03-28] MEDS ORDERED: TENOFOVIR DISOPROXIL FUMARATE 300 MG TABLET PO SCH (21:00)
== END 2021-03-27 17:23 | DRG 280 ==
LOC: ER 02:21 → TELE 07:51
PROVIDERS: ADMIT Internal Medicine; ATTEND Internal Medicine
PROC: 5A1D70Z Performance of Urinary Filtration, Intermittent, Less than 6 Hours Per Day (ICD-10-PCS; principal; 2021-03-25)
PROC: 0W993ZZ Drainage of Right Pleural Cavity, Percutaneous Approach (ICD-10-PCS; 2021-03-26)
DX: I13.2 Hypertensive heart and chronic kidney disease with heart failure and with stage 5 chronic kidney disease, or end stage renal disease (principal); N18.6 End stage renal disease; I21.4 Non-ST elevation (NSTEMI) myocardial infarction; I50.43 Acute on chronic combined systolic (congestive) and diastolic (congestive) heart failure; J15.9 Unspecified bacterial pneumonia; D61.818 Other pancytopenia; B19.10 Unspecified viral hepatitis B without hepatic coma; J90 Pleural effusion, not elsewhere classified; J98.11 Atelectasis; I25.2 Old myocardial infarction; Z99.2 Dependence on renal dialysis; K74.60 Unspecified cirrhosis of liver; Z88.1 Allergy status to other antibiotic agents; Z88.0 Allergy status to penicillin; Z79.899 Other long term (current) drug therapy; Z79.51 Long term (current) use of inhaled steroids; Z86.74 Personal history of sudden cardiac arrest; Z91.19 Patient's noncompliance with other medical treatment and regimen; I25.10 Atherosclerotic heart disease of native coronary artery without angina pectoris; D72.819 Decreased white blood cell count, unspecified; E87.5 Hyperkalemia; R09.02 Hypoxemia; E03.9 Hypothyroidism, unspecified; D72.10 Eosinophilia, unspecified; D69.59 Other secondary thrombocytopenia
CPT/HCPCS: 36415; 71045-TC; 80048-TC; 80061-TC; 83615-TC; 83735-TC; 83880; 84100-TC; 84155-TC; 84443-TC; 84484-TC; 85025-TC; 87070-TC; 87081-TC; 90935-TC; 93970-TC; A6403; C9803; G0378; J0692; J1200; J1940; J2270; J2405; J7030; J7050; J7060; Q0163; Q0177; Q9967

== ENCOUNTER 2021-04-10 18:56 | Inpatient (IN) | payer MEDICARE, OTHER ==
[~2021-04-10] VITALS: Ht 182.9 cm; Wt 85.7 kg
--- NOTE | 2021-04-10 19:00 | NUR ---
pt [id number] frm SNF for SOB and noted low 02 saturation at 1630. pt c/o generalized weakness since this morning.
--- NOTE | 2021-04-10 19:07 | NUR ---
RT AT BEDSIDE. PUT ON BIPAP; TOLERATING WELL.
--- NOTE | 2021-04-10 19:43 | NUR ---
COVID SWAB COLLECTED AND SENT TO LAB
--- NOTE | 2021-04-10 19:51 | NUR ---
TOOK OVER PT CARE. PT AAOX4. WAS PLACED ON BIPAP, SAT 100%. REMAINS ON RAIL CAR DRIVER AND PULSE OX. NO ACUTE DISTRESS NOTED. BLOOD COLLECTED SENT TO LAB. COVID SWABS DONE, SENT TO LAB.
[2021-04-10 19:52] LABS: BASOPHILS % (AUTO) 0.6 % (0.0-2.0); EOSINOPHILS % (AUTO) 4.2 % (0.0-6.0); HEMATOCRIT 21 % (39-51); LYMPHOCYTES # (AUTO) 0.8 K/uL (0.8-4.8); LYMPHOCYTES % (AUTO) 21.8 % (20.0-44.0); MEAN CORPUSCULAR HGB CONC 32 g/dl (31.0-36.0); MEAN CORPUSCULAR VOLUME 89 fL (80-96); MONOCYTES # (AUTO) 0.5 K/uL (0.1-1.30); MONOCYTES % (AUTO) 12.2 % (2.0-12.0); NEUTROPHILS # (AUTO) 2.3 K/uL (1.8-8.9); NEUTROPHILS % (AUTO) 61.2 % (43.0-81.0); PLATELET COUNT (AUTO) 122 K/uL (150-450); WHITE BLOOD COUNT (AUTO) 3.7 K/uL (4.3-11.0)
--- NOTE | 2021-04-10 19:52 | NUR ---
BIPAP SETTIN/5 RATE 18 02 40%
[2021-04-10 19:53] LABS: HEMOGLOBIN 6.7 g/dL (13.5-17.5)
--- NOTE | 2021-04-10 19:53 | NUR ---
HGB 6.7, ER AWARE
[2021-04-10 20:00] LABS: CALCIUM, SERUM 8.6 mg/dL (8.5-10.1); CARBON DIOXIDE 32 mmol/L (21-32); CHLORIDE 103 mmol/L (98-107); GLUCOSE 101 mg/dL (74-106); SODIUM SERUM 143 mmol/L (136-145); UREA NITROGEN, BLOOD 30 mg/dL (7-18)
[2021-04-10 20:01] LABS: CREATININE 9.9 mg/dL (0.6-1.3)
--- NOTE | 2021-04-10 20:01 | NUR ---
CRITICAL LAB: RADHA 9.9
[2021-04-10 20:28] LABS: EOSINOPHILS % (MANUAL) 7 % (0-4); LYMPHOCYTES % (MANUAL) 18 % (16-48); MONOCYTES % (MANUAL) 11 % (0-11.0); NEUTROPHILS % (MANUAL) 64 (42-76)
[2021-04-10] MEDS ORDERED: ASPIRIN 81 MG TAB.CHEW PO ONE (20:30)
--- NOTE | 2021-04-10 20:39 | NUR ---
BLOOD CONSENT OBTAINED. AWAITING CALL FROM LAB.
[2021-04-10] MEDS ORDERED: TENOFOVIR DISOPROXIL FUMARATE 300 MG TABLET PO SCH (20:49)
[2021-04-10] MEDS ORDERED: Z GUARD REMEDY 2 OZ OINT TP PRN (21:00)
[2021-04-10] MEDS ORDERED: MAGNESIUM HYDROXIDE 30 ML UDC PO PRN (21:00)
[2021-04-10] MEDS ORDERED: ZOLPIDEM TARTRATE 5 MG TABLET PO PRN (21:00)
[2021-04-10] MEDS ORDERED: ALBUTEROL SULFATE 8 GM HFA.AER.AD IH PRN (21:00)
[2021-04-10] MEDS ORDERED: MAG HYDROX/AL HYDROX/SIMETH 30 ML UDC PO PRN (21:00)
[2021-04-10] MEDS ORDERED: AZITHROMYCIN 500 MG in IV D5W 250 ML IV ONE (22:00)
[2021-04-10] MEDS ORDERED: CEFTRIAXONE 1 G in IV D5W 50 ML IV ONE (22:00)
--- NOTE | 2021-04-10 22:50 | NUR ---
BLOOD COLLECTED FROM MAIN LAB. PT'S WRIST BAND WILL NOT MATCH THE PAPER CONSENT FORM. MITCHEL FROM LAB STATED THE BARCODE NUMBER WAS CHANGED IN THE SYSTEM. ALL OTHER INFORMATION WILL MATCH.
--- NOTE | 2021-04-10 23:00 | NUR ---
BLOOD TRANSFUSION INITIATED.
--- NOTE | 2021-04-10 23:13 | NUR ---
REPORT GIVEN TO RN FOR VERENICE. PT WILL BE TRANSFERED TO ICU BED 254
[2021-04-11] VITALS (19 sets, daily range): BP systolic 96–149; BP diastolic 39–103
--- NOTE | 2021-04-11 00:27 | NUR ---
PT TRANSFERED PER ACLS PROTOCOL
--- NOTE | 2021-04-11 00:30 | NUR ---
RN NOTES ADMITTED PATIENT FROM ER VIA STRETCHER. AOX4 VERBALLY RESPONSIVE. CONNECTED TO MONITOR. REVEALS SR. SATURATION WELL ON O2 4LPM VIA NC BIPAP PLACED BY RT. PATIENT IS COMPLIANT WITH CARE. SKIN IS INTACT. DORIAN AV FISTULA WITH +BRUIT AND + THRILL WITH CLEAN DRESSING. IV SITE ON LISE MIDLINE RUNNING WITH UNIT OF PRBC CONTINUE FROM ER. ISOALTION PRECAUTION DUE TO PENDING COVID PCR RENDERED. KEPT PT CLEAN AND COMFORTABLE IN BED. INSTRUCTED TO USED CALL LIGHT FOR ASSISTANCE. WILL CONTINUE POC.
--- NOTE | 2021-04-11 01:00 | NUR ---
RN NOTES NOTED THAT PATIENT IV ATB WS NOT GIVEN IN ER BUT PATIENT IS ALREADY ON THE FLOOR (ICU)CALLED AND VERIFIED TO PAULA IF HE STILL WANT ME TO GIVE THE AZITHROMAX AND CEFTRIAXONE IV ONETIME DESPITE THAT IM GIVING CEFIPIME AND PLUS THE PATIENT STILL RUNNING WT BLOOD TRANSFUSION. PER MERY PAULA GAVE CEFEPIME ONLY, NOTED AND CARRIED OUT ORDER.
[2021-04-11] MEDS ORDERED: TENOFOVIR DISOPROXIL FUMARATE 300 MG TABLET PO ONE (01:19)
[2021-04-11] MEDS ORDERED: CEFEPIME 1 GM VIAL ONE (01:19)
--- NOTE | 2021-04-11 01:36 | NUR ---
PT TAKEN OFF BIPAP TO EAT AND PLACED ON 4L NC.
[2021-04-11] MEDS ORDERED: CEFEPIME 2 GM in IV D5W 100 ML IV ONE (02:00)
--- NOTE | 2021-04-11 02:20 | NUR ---
RN NOTES 1 U PRBC FINISHED WITHOUT S/SX OR ASE NOTED. VSS. AFEBRILE. PATIENT IS EATING AT THIS TIME. ALL NEEDS ATTENDED.
[2021-04-11] MEDS: MORPHINE SULFATE INJ 2 MG/ML DISP.SYRIN IV PRN ×2 (04:35→09:09)
[2021-04-11 04:45] LABS: BASOPHILS % (AUTO) 0.7 % (0.0-2.0); EOSINOPHILS % (AUTO) 4.4 % (0.0-6.0); HEMATOCRIT 21 % (39-51); LYMPHOCYTES # (AUTO) 0.8 K/uL (0.8-4.8); LYMPHOCYTES % (AUTO) 15.3 % (20.0-44.0); MEAN CORPUSCULAR HGB CONC 33 g/dl (31.0-36.0); MEAN CORPUSCULAR VOLUME 89 fL (80-96); MONOCYTES # (AUTO) 0.5 K/uL (0.1-1.30); MONOCYTES % (AUTO) 9.5 % (2.0-12.0); NEUTROPHILS # (AUTO) 3.5 K/uL (1.8-8.9); NEUTROPHILS % (AUTO) 70.1 % (43.0-81.0); PLATELET COUNT (AUTO) 122 K/uL (150-450); RED BLOOD CELL COUNT(AUTO) 2.37 MIL/uL (4.5-6.0); WHITE BLOOD COUNT (AUTO) 4.9 K/uL (4.3-11.0)
[2021-04-11 05:14] LABS: CALCIUM, SERUM 8.3 mg/dL (8.5-10.1); MAGNESIUM 1.9 mg/dL (1.8-2.4); PHOSPHORUS 5.3 mg/dL (2.5-4.9); POTASSIUM 4.4 mmol/L (3.5-5.1)
[2021-04-11 05:25] LABS: CREATININE 10.7 mg/dL (0.6-1.3)
--- NOTE | 2021-04-11 07:17 | NUR ---
RN NOTES PATIENT ASLEEP SHALA THIS TIME. NO SIGNIFICANT CHANGES. NO C/O SOB OR RESP. DISTRESS. TOLERATED O2 4LPM VIA NC. SATURATION 97%. STRICTLY ISOLATION PRECAUTION OBSERVED DUE TO PENDING COVID PCR RESULT. PT IS AOX4 ABLE TO MAKE KNOWN NEEDS. C/O PAIN ON HIS BACK MORPHINE PRN ADMNISTERED ORDERED EFFECTIVE. KEPT PT CLEAN AN COMFORTABLE IN BED. REPORTED BY LAB CREATININE 10.7 PATIENT IS DIALYSIS PATIENT. KEPT PT CLEAN AND COMFORTABLE IN BED.CALL LIGHT KEPT WITHIN EASY REACH. ENDORSED CONTINUITY OF CARE TO AM NURSE.
[2021-04-11] MEDS: ASCORBIC ACID 500 MG TABLET PO SCH (08:09)
[2021-04-11] MEDS: SEVELAMER CARBONATE 800 MG TABLET PO SCH ×3 (08:10→18:31)
[2021-04-11] MEDS: hydrALAZINE HCL 25 MG TABLET PO SCH ×4 (08:10→18:36)
[2021-04-11] MEDS: MULTIVITAMINS,THERAGRAN 1 UDTAB TABLET PO SCH (08:11)
[2021-04-11] MEDS: LISINOPRIL (20MG) 20 MG TABLET PO SCH (08:11)
[2021-04-11] MEDS: MINOXIDIL (2.5MG) 2.5 MG TABLET PO SCH (08:11)
[2021-04-11] MEDS: ASPIRIN 81 MG TAB.CHEW PO SCH (08:11)
[2021-04-11] MEDS: LABETALOL HCL (100MG) 100 MG TABLET PO SCH ×2 (08:21→21:00)
[2021-04-11] MEDS: RALTEGRAVIR POTASSIUM 400 MG TABLET PO SCH ×2 (08:29→18:55)
[2021-04-11] MEDS: LAMIVUDINE (150MG) 150 MG TABLET PO SCH (08:29)
[2021-04-11] MEDS ORDERED: PANTOPRAZOLE 40 MG VIAL IV SCH (09:00)
[2021-04-11] MEDS: NIFEdipine XL (30MG) 30 MG TAB PO SCH (09:08)
--- NOTE | 2021-04-11 13:58 | NUR ---
RN NOTE Hemodialysis initiated at 1400
[2021-04-11] MEDS ORDERED: LIDOCAINE 0.5% HCL 50 ML VIAL TP ONE (15:00)
--- NOTE | 2021-04-11 15:24 | NUR ---
RN NOTE PT REQUESTED LIDOCAINE FOR NEEDLE INSERTION, ORDER VERIFIED WITH DR. MARTINES
--- NOTE | 2021-04-11 16:42 | NUR ---
RN NOTE PT REPORTED GENERALIZED ITCHING AND REQUESTED BENADRYL. DR. MARTINES NOTIFIED AND VERIFIED ORDER.
[2021-04-11] MEDS ORDERED: diphenhydrAMINE HCL 50 MG/ML VIAL IV ONE (17:00)
--- NOTE | 2021-04-11 17:00 | NUR ---
RN NOTE HYDRALINE NOT GIVEN DUE TO LOW BP 96/53
[2021-04-11] MEDS: hydrOXYzine PAMOATE 25 MG CAPSULE PO PRN (18:31)
--- NOTE | 2021-04-11 18:49 | NUR ---
SPOKE WITH OCHOA, REPORT GIVEN AND TRANSFERRED
--- NOTE | 2021-04-11 19:30 | NUR ---
RN NOTE RECEIVED PT FROM ICU, PT ALERT AND ORIENTED X 4. ON 4L NC. PT DENIES ANY SOB, NOT IN ANY DISTRESS. HOOKED TO TELE MONITOR SR WITH HR 90S. PT WITH AV FISTULA ON DORIAN. DRESSING INTACT, NO BLEEDING NOTED. PT CONTINENT, AMBULATES TO RESTROOM. ALL SAFETY MEASURES IN PLACE, BED LOCKED IN LOWEST POSITION, BED ALARM ON. WILL CONTINUE TO MONITOR.
--- NOTE | 2021-04-11 22:00 | NUR ---
RN NOTE DUE LABETALOL, HELD. BP 90/56. PT NOT IN ANY DISTRESS. WILL CONTINUE TO MONITOR.
[2021-04-12] VITALS: BP 92/47
[2021-04-12] MEDS: CEFEPIME 1 GM in IV D5W 50 ML IV SCH (01:59)
[2021-04-12 04:00] VITALS: BP 104/46
[2021-04-12] MEDS: MORPHINE SULFATE INJ 2 MG/ML DISP.SYRIN IV PRN ×4 (04:05→20:11)
--- NOTE | 2021-04-12 06:34 | NUR ---
RN NOTE PT AWAKE. DENIES PAIN AT THIS TIME. NO SIGNS OF DISTRESS. O2 TITRATED DOWN TO 2L. TOLERATING. DENIES SOB. AVFISTULA +BRUIT &THRILL, NO BLEEDING NOTED, NO S/SX OF INFECTION. LISE ML PATENT AND INTACT. ALL SAFETY IN PLACE. EDUCATED PT TO LIMIT FLUIDS, VERBALIZES UNDERSTANDING. WILL ENDORSE TO NEXT SHIFT NURSE FOR VERENICE.
[2021-04-12 06:35] LABS: BASOPHILS % (AUTO) 0.5 % (0.0-2.0); EOSINOPHILS % (AUTO) 6.5 % (0.0-6.0); HEMATOCRIT 24 % (39-51); HEMOGLOBIN 7.7 g/dL (13.5-17.5); LYMPHOCYTES # (AUTO) 0.9 K/uL (0.8-4.8); LYMPHOCYTES % (AUTO) 18.7 % (20.0-44.0); MEAN CORPUSCULAR HGB CONC 33 g/dl (31.0-36.0); MEAN CORPUSCULAR VOLUME 91 fL (80-96); MONOCYTES # (AUTO) 0.6 K/uL (0.1-1.30); MONOCYTES % (AUTO) 12.2 % (2.0-12.0); NEUTROPHILS # (AUTO) 2.9 K/uL (1.8-8.9); NEUTROPHILS % (AUTO) 62.1 % (43.0-81.0); PLATELET COUNT (AUTO) 143 K/uL (150-450); RED BLOOD CELL COUNT(AUTO) 2.58 MIL/uL (4.5-6.0); WHITE BLOOD COUNT (AUTO) 4.6 K/uL (4.3-11.0)
[2021-04-12 06:58] LABS: CALCIUM, SERUM 8.8 mg/dL (8.5-10.1); PHOSPHORUS 4.9 mg/dL (2.5-4.9); POTASSIUM 5.1 mmol/L (3.5-5.1)
[2021-04-12 06:59] LABS: CREATININE 8.7 mg/dL (0.6-1.3)
--- NOTE | 2021-04-12 07:15 | NUR ---
RN OPENING NOTE Received patient awake sitting in bed on NC 2 L tolerating well no signs of distress. AO x4 tele reading SR. LISE midline dressing intact. DORIAN AV fistula with thrills. No complains of pain or discomfort at this time. Safety measures maintained, call light within reach. Will cont to monitor.
[2021-04-12 08:00] VITALS: BP 100/63
[2021-04-12] MEDS: ASCORBIC ACID 500 MG TABLET PO SCH (08:28)
[2021-04-12] MEDS: SEVELAMER CARBONATE 800 MG TABLET PO SCH ×3 (08:28→17:01)
[2021-04-12] MEDS: LAMIVUDINE (150MG) 150 MG TABLET PO SCH (08:29)
[2021-04-12] MEDS: hydrALAZINE HCL 25 MG TABLET PO SCH ×3 (08:30→16:59)
[2021-04-12] MEDS: ASPIRIN 81 MG TAB.CHEW PO SCH (08:30)
[2021-04-12] MEDS: MULTIVITAMINS,THERAGRAN 1 UDTAB TABLET PO SCH (08:31)
[2021-04-12] MEDS: RALTEGRAVIR POTASSIUM 400 MG TABLET PO SCH ×2 (08:31→16:59)
[2021-04-12] MEDS: LISINOPRIL (20MG) 20 MG TABLET PO SCH (08:32)
[2021-04-12] MEDS: MINOXIDIL (2.5MG) 2.5 MG TABLET PO SCH (08:32)
[2021-04-12] MEDS: NIFEdipine XL (30MG) 30 MG TAB PO SCH (08:33)
[2021-04-12] MEDS: LABETALOL HCL (100MG) 100 MG TABLET PO SCH ×2 (08:33→20:16)
[2021-04-12 16:00] VITALS: BP 139/76
[2021-04-12] MEDS: ONDANSETRON HCL/PF 4 MG/2 ML VIAL IVP PRN (17:39)
--- NOTE | 2021-04-12 19:55 | NUR ---
RN CLOSING NOTE Patient in bed appears calm and relaxed. No signs of distress. On NC 2L tolerating well. All due meds given. All needs met. Endorsed to back shoe operator nurse for shana.
[2021-04-12 20:00] VITALS: BP 98/53
--- NOTE | 2021-04-12 20:00 | NUR ---
MS RN OPENING NOTE PATIENT AWAKE IN BED, ALERT/ORIENTED X 4, PT ABLE TO MAKE NEEDS KNOWN. PT STABLE ON 2L OF OXYGEN VIA NASAL CANNULA, BREATHING EVEN AND UNLABORED, NO S/S OF DISTRESS OR SOB NOTED. LISE MIDLINE INTACT AND FLUSHING WELL, SALINE LOCKED. DORIAN FISTULA PRESENT. PATIENT REPORTING 8/10 BACK PAIN, WILL GIVE MORPHINE 4 MG IV ORDERED. SAFETY MEASURES IN PLACE: CALL LIGHT WITHIN REACH, SIDE RAILS UP X 2, BED LOCKED IN LOW POSITION. WILL CONTINUE TO MONITOR PATIENT
[2021-04-12] MEDS: hydrOXYzine PAMOATE 25 MG CAPSULE PO PRN (21:58)
--- NOTE | 2021-04-13 | NUR ---
MS RN NOTE PT HAD 1 EPISODE OF EMESIS, 1000 ML OUTPUT. ZOFRAN GIVEN ORDERED, GAVE PATIENT ICE CHIPS. WILL CONTINUE TO MONITOR PATIENT
[2021-04-13] MEDS: MORPHINE SULFATE INJ 2 MG/ML DISP.SYRIN IV PRN ×4 (00:15→22:16)
[2021-04-13] MEDS: ONDANSETRON HCL/PF 4 MG/2 ML VIAL IVP PRN ×2 (00:16→22:21)
[2021-04-13] MEDS: CEFEPIME 1 GM in IV D5W 50 ML IV SCH (02:18)
[2021-04-13 04:00] VITALS: BP 115/70
[2021-04-13 06:57] LABS: BASOPHILS % (AUTO) 0.3 % (0.0-2.0); EOSINOPHILS % (AUTO) 5.9 % (0.0-6.0); HEMATOCRIT 24 % (39-51); HEMOGLOBIN 7.8 g/dL (13.5-17.5); LYMPHOCYTES # (AUTO) 0.9 K/uL (0.8-4.8); LYMPHOCYTES % (AUTO) 18.8 % (20.0-44.0); MEAN CORPUSCULAR HGB CONC 32 g/dl (31.0-36.0); MEAN CORPUSCULAR VOLUME 92 fL (80-96); MONOCYTES # (AUTO) 0.6 K/uL (0.1-1.30); NEUTROPHILS # (AUTO) 2.9 K/uL (1.8-8.9); PLATELET COUNT (AUTO) 135 K/uL (150-450); RED BLOOD CELL COUNT(AUTO) 2.65 MIL/uL (4.5-6.0); WHITE BLOOD COUNT (AUTO) 4.6 K/uL (4.3-11.0)
--- NOTE | 2021-04-13 07:21 | NUR ---
MS CLOSING NOTE PATIENT AWAKE IN BED, NO S/S OF DISTRESS OR SOB NOTED, BREATHING EVEN AND UNLABORED. NO MORE EPISODES OF EMESIS THE REST OF THE SHIFT. MEDICATIONS GIVEN ORDERED, PT NEEDS MET THROUGHOUT SHIFT. SAFETY MEASURES IN PLACE: CALL LIGHT WITHIN REACH, SIDE RAILS UP X 2, BED LOCKED IN LOW POSITION. ENDORSED TO DAY SHIFT NURSE FOR CONTINUITY OF CARE
--- NOTE | 2021-04-13 07:26 | NUR ---
RN NOTES Received patient awake sitting in bed on NC 2 L tolerating well no signs of distress. AO x4 tele reading SR. LISE midline dressing intact. DORIAN AV fistula with thrills. No complains of pain or discomfort at this time. Safety measures, bed on lowest position maintained, call light within reach. Will continue to monitor
[2021-04-13 07:51] LABS: CALCIUM, SERUM 8.8 mg/dL (8.5-10.1); MAGNESIUM 2.2 mg/dL (1.8-2.4); PHOSPHORUS 6.7 mg/dL (2.5-4.9); POTASSIUM 5.1 mmol/L (3.5-5.1)
[2021-04-13 07:54] LABS: CREATININE 10.9 mg/dL (0.6-1.3)
[2021-04-13 08:00] VITALS: BP 104/66
[2021-04-13] MEDS: SEVELAMER CARBONATE 800 MG TABLET PO SCH ×3 (08:11→17:05)
[2021-04-13] MEDS: ASCORBIC ACID 500 MG TABLET PO SCH (08:15)
[2021-04-13] MEDS: MULTIVITAMINS,THERAGRAN 1 UDTAB TABLET PO SCH (08:15)
[2021-04-13] MEDS: LABETALOL HCL (100MG) 100 MG TABLET PO SCH ×2 (08:16→20:54)
[2021-04-13] MEDS: MINOXIDIL (2.5MG) 2.5 MG TABLET PO SCH (08:19)
[2021-04-13] MEDS: LISINOPRIL (20MG) 20 MG TABLET PO SCH (08:20)
[2021-04-13] MEDS: NIFEdipine XL (30MG) 30 MG TAB PO SCH (08:21)
[2021-04-13] MEDS: ASPIRIN 81 MG TAB.CHEW PO SCH (08:23)
[2021-04-13] MEDS: hydrALAZINE HCL 25 MG TABLET PO SCH ×3 (08:23→16:19)
[2021-04-13] MEDS: RALTEGRAVIR POTASSIUM 400 MG TABLET PO SCH ×2 (08:36→16:20)
[2021-04-13] MEDS: PANTOPRAZOLE 40 MG TABLET.DR PO SCH (08:36)
[2021-04-13] MEDS: LAMIVUDINE (150MG) 150 MG TABLET PO SCH (08:36)
[2021-04-13 16:00] VITALS: BP 106/63
--- NOTE | 2021-04-13 18:45 | NUR ---
RN CLOSING NOTE PATIENT IN BED ALERT ORRIENTED X4, NOT IN ACUTE DISTRESS NOTED, WITH DORIAN AV FISTULA WITH + THRILL, WITH LISE MIDLINE PATENT AND FLUSHES WELL, HOB ELEVATED, SAFETY PRECAUTION IN PLACE,BED IN LOW POSITION AND LOCKED, SIDERAILS UP FOR SAFETY, CALL LIGHT WITHIN REACH, ALL NEEDS ATTENDED PROMPTLY. ENDORSED
--- NOTE | 2021-04-13 19:45 | NUR ---
MS RN NOTES RECEIVED ON BED A/O X4,BREATHING REGULAR,NOT IN ANY FORM OF DISTRESS.WITH DORIAN AV FISTULA FOR HD ACCESS,RIGHT UPPER ARM MIDLINE FOR MEDS.DENIES DISCOMFORTS AT THE MOMENT,CALL LIGHT IN REACH,NEEDS ANTICIPATED.
[2021-04-13 20:00] VITALS: BP 102/54
--- NOTE | 2021-04-13 22:16 | NUR ---
MS RN NOTES PAIN MANAGEMENT C/O BACK PAIN 8/10 ON PAIN SCALE,MORPHINE 4MG IV GIVEN ORDERED FOR SEVERE PAIN
--- NOTE | 2021-04-13 22:21 | NUR ---
MS RN NOTES C/O NAUSEA,ZOFRAN 4MG IV GIVEN ORDERED.
[2021-04-14] MEDS: CEFEPIME 1 GM in IV D5W 50 ML IV SCH (01:22)
[2021-04-14 05:00] VITALS: BP 105/65
[2021-04-14] MEDS: MORPHINE SULFATE INJ 2 MG/ML DISP.SYRIN IV PRN ×3 (05:58→17:24)
--- NOTE | 2021-04-14 06:23 | NUR ---
MS RN NOTES SLEPT WELL,STILL WITH EPISODE OF BACK PAIN,MANAGE WITH MORPHINE IV.FOR HD TODAY WITH ORDER.IN NO ACUTE DISTRESS.WILL ENDORSE TO DAY NURSE FOR VERENICE.
[2021-04-14 06:46] LABS: BASOPHILS % (AUTO) 0.4 % (0.0-2.0); HEMATOCRIT 25 % (39-51); HEMOGLOBIN 8.1 g/dL (13.5-17.5); LYMPHOCYTES % (AUTO) 16.4 % (20.0-44.0); MEAN CORPUSCULAR HGB CONC 32 g/dl (31.0-36.0); MEAN CORPUSCULAR VOLUME 93 fL (80-96); MONOCYTES # (AUTO) 0.7 K/uL (0.1-1.30); MONOCYTES % (AUTO) 11.3 % (2.0-12.0); NEUTROPHILS # (AUTO) 4.3 K/uL (1.8-8.9); NEUTROPHILS % (AUTO) 67.9 % (43.0-81.0); PLATELET COUNT (AUTO) 128 K/uL (150-450); RED BLOOD CELL COUNT(AUTO) 2.69 MIL/uL (4.5-6.0); WHITE BLOOD COUNT (AUTO) 6.3 K/uL (4.3-11.0)
--- NOTE | 2021-04-14 07:31 | NUR ---
RN OPENING NOTE Pt is asleep, arousable to stimuli, no respiratory distress, no SOB, on 2 luters via NC. Safety precautions implemented, bed locked in lowest position, call light within reach.
[2021-04-14 07:55] LABS: CALCIUM, SERUM 9.2 mg/dL (8.5-10.1); MAGNESIUM 2.3 mg/dL (1.8-2.4)
[2021-04-14 08:00] VITALS: BP 161/85
[2021-04-14 08:35] LABS: CREATININE 12.2 mg/dL (0.6-1.3)
[2021-04-14] MEDS: MINOXIDIL (2.5MG) 2.5 MG TABLET PO SCH (09:00)
[2021-04-14] MEDS: NIFEdipine XL (30MG) 30 MG TAB PO SCH (09:00)
[2021-04-14] MEDS: hydrALAZINE HCL 25 MG TABLET PO SCH ×3 (09:00→17:22)
[2021-04-14] MEDS: LABETALOL HCL (100MG) 100 MG TABLET PO SCH (09:00)
[2021-04-14] MEDS: LISINOPRIL (20MG) 20 MG TABLET PO SCH (09:00)
[2021-04-14] MEDS: RALTEGRAVIR POTASSIUM 400 MG TABLET PO SCH ×2 (09:03→17:23)
[2021-04-14] MEDS: ASPIRIN 81 MG TAB.CHEW PO SCH (09:03)
[2021-04-14] MEDS: MULTIVITAMINS,THERAGRAN 1 UDTAB TABLET PO SCH (09:04)
[2021-04-14] MEDS: ASCORBIC ACID 500 MG TABLET PO SCH (09:04)
[2021-04-14] MEDS: LAMIVUDINE (150MG) 150 MG TABLET PO SCH (09:05)
[2021-04-14] MEDS: PANTOPRAZOLE 40 MG TABLET.DR PO SCH (09:07)
[2021-04-14] MEDS: SEVELAMER CARBONATE 800 MG TABLET PO SCH ×3 (09:07→17:21)
[2021-04-14] MEDS: ONDANSETRON HCL/PF 4 MG/2 ML VIAL IVP PRN (09:24)
[2021-04-14] MEDS: NEPRO VAN 237 ML CAN PO SCH ×2 (10:47→17:24)
[2021-04-14 11:07] LABS: HEPATITIS Be AB Negative (Negative)
[2021-04-14] MEDS: hydrOXYzine PAMOATE 25 MG CAPSULE PO PRN (13:12)
[2021-04-14] MEDS ORDERED: ASPI-1169 PO (14:15)
[2021-04-14] MEDS ORDERED: Nepro PO (14:15)
[2021-04-14] MEDS ORDERED: AMOX-427 PO (14:15)
[2021-04-14] MEDS ORDERED: EPOETIN ALFA (10,000 UNIT) 10,000 UNIT/ML VIAL SQ SCH (15:00)
[2021-04-14] MEDS ORDERED: diphenhydrAMINE HCL 50 MG/ML VIAL IV ONE (15:30)
[2021-04-14 16:00] VITALS: BP 123/69
[2021-04-14 17:22] VITALS: BP 123/69
--- NOTE | 2021-04-14 18:54 | NUR ---
RN D/C NOTE Patient A/O X 4, no respiratory distress, no SOB. On 5 liters via NC, satting 93%-95%. Had dialysis removed 5 liters. Left upper arm AV fistula with no s/sx of bleeding. Discharge teaching done, discharge instructions signed by patient. Inventory list done and signed. Left via ambulance [facility] with two EMT's. Gave report to Ana Lilia STOREY at [facility].
[2021-04-16] MEDS ORDERED: CLONIDINE HCL 0.3 MG/24H PTWK 1 EA PATCH TD SCH (09:00)
[2021-04-18] MEDS ORDERED: TENOFOVIR DISOPROXIL FUMARATE 300 MG TABLET PO SCH (21:00)
== END 2021-04-14 18:51 | DRG 208 ==
LOC: ER 19:18 → ICU 23:39 → TELE1 04-11 19:30 → MEDSG1 04-12 08:15
PROVIDERS: ADMIT Nurse Practitioner Acute Care; ATTEND Student in an Organized Health Care Education/Training Program
PROC: 30233N1 Transfusion of Nonautologous Red Blood Cells into Peripheral Vein, Percutaneous Approach (ICD-10-PCS; 2021-04-10)
PROC: 5A1935Z Respiratory Ventilation, Less than 24 Consecutive Hours (ICD-10-PCS; principal; 2021-04-11)
PROC: 5A1D70Z Performance of Urinary Filtration, Intermittent, Less than 6 Hours Per Day (ICD-10-PCS; 2021-04-11)
PROC: 0W993ZZ Drainage of Right Pleural Cavity, Percutaneous Approach (ICD-10-PCS; 2021-04-14)
DX: J96.21 Acute and chronic respiratory failure with hypoxia (principal); J15.9 Unspecified bacterial pneumonia; N18.6 End stage renal disease; I21.A1 Myocardial infarction type 2; I13.2 Hypertensive heart and chronic kidney disease with heart failure and with stage 5 chronic kidney disease, or end stage renal disease; D61.818 Other pancytopenia; J90 Pleural effusion, not elsewhere classified; I50.32 Chronic diastolic (congestive) heart failure; K74.60 Unspecified cirrhosis of liver; Z86.74 Personal history of sudden cardiac arrest; E03.9 Hypothyroidism, unspecified; Z99.2 Dependence on renal dialysis; I25.10 Atherosclerotic heart disease of native coronary artery without angina pectoris; Z88.1 Allergy status to other antibiotic agents; Z88.0 Allergy status to penicillin; Z79.51 Long term (current) use of inhaled steroids; Z79.899 Other long term (current) drug therapy; D64.9 Anemia, unspecified; R78.89 Finding of other specified substances, not normally found in blood; Z20.822 Contact with and (suspected) exposure to COVID-19; E87.5 Hyperkalemia
CPT/HCPCS: 36415; 71045-TC; 80048-TC; 83735-TC; 83880; 84100-TC; 84484-TC; 85025-TC; 85730-TC; 86707; 86850-TC; 87081-TC; 87350; 89051-TC; 90935-TC; 99082-TC; C9113; C9803; G0378; J0692; J0885; J1200; J2270; J2405; J3490; J7030; J7050; J7060; P9016; Q0177; U0003

== ENCOUNTER 2021-04-27 03:09 | Inpatient (IN) | payer MEDICARE, OTHER ==
[~2021-04-27] VITALS: Ht 182.9 cm; Wt 80.7 kg
[~2021-04-27 03:09] MED LIST changes: +AMOX-427 PO; +ASPI-1169 PO; -CEFE2FRO IV; +Nepro PO
--- NOTE | 2021-04-27 03:40 | NUR ---
EMT AT BEDSIDE FOR EKG
--- NOTE | 2021-04-27 03:43 | NUR ---
MRSA SWAB COLLECTED AND SENT TO LAB. PATIENT'S BELONGINGS LIST DONE.
--- NOTE | 2021-04-27 03:45 | NUR ---
COVID SWAB COLLECTED AND SENT TO LAB
[2021-04-27 04:09] LABS: BASOPHILS % (AUTO) 1.1 % (0.0-2.0); EOSINOPHILS % (AUTO) 5.6 % (0.0-6.0); HEMATOCRIT 24 % (39-51); HEMOGLOBIN 7.9 g/dL (13.5-17.5); LYMPHOCYTES # (AUTO) 0.7 K/uL (0.8-4.8); LYMPHOCYTES % (AUTO) 22.5 % (20.0-44.0); MEAN CORPUSCULAR HGB CONC 33 g/dl (31.0-36.0); MEAN CORPUSCULAR VOLUME 93 fL (80-96); MONOCYTES # (AUTO) 0.4 K/uL (0.1-1.30); MONOCYTES % (AUTO) 11.4 % (2.0-12.0); NEUTROPHILS % (AUTO) 59.4 % (43.0-81.0); PLATELET COUNT (AUTO) 216 K/uL (150-450); RED BLOOD CELL COUNT(AUTO) 2.58 MIL/uL (4.5-6.0); WHITE BLOOD COUNT (AUTO) 3.3 K/uL (4.3-11.0)
[2021-04-27] MEDS ORDERED: HYDROCODONE/APAP 5/325MG TABLET ONE (04:51)
[2021-04-27] MEDS ORDERED: HYDROCODONE/APAP 5/325MG TABLET PO ONE (05:00)
[2021-04-27 05:14] LABS: ALBUMIN 3.1 g/dL (3.4-5.0); BILIRUBIN,DIRECT 0.1 mg/dL (0.0-0.2); BILIRUBIN,TOTAL 0.6 mg/dL (0.2-1.0); CALCIUM, SERUM 8.9 mg/dL (8.5-10.1); TOTAL PROTEIN, SERUM 7.4 g/dL (6.4-8.2)
[2021-04-27 05:32] LABS: POTASSIUM 6.4 mmol/L (3.5-5.1)
[2021-04-27 05:33] LABS: CREATININE 8.4 mg/dL (0.6-1.3)
[2021-04-27] MEDS ORDERED: CALCIUM CHLORIDE 1,000 MG/10 ML DISP.SYRIN ONE (05:59)
[2021-04-27] MEDS ORDERED: DEXTROSE 50%-WATER 50 ML DISP.SYRIN ONE (05:59)
[2021-04-27] MEDS ORDERED: NITROGLYCERIN 0.4 MG/TAB BOTTLE SL PRN (06:00)
[2021-04-27] MEDS ORDERED: ALBUTEROL FS 2.5 MG/3 ML VIAL.NEB NEB ONE (06:00)
[2021-04-27] MEDS ORDERED: DEXTROSE 50%-WATER 50 ML DISP.SYRIN IV ONE (06:00)
[2021-04-27] MEDS ORDERED: CALCIUM CHLORIDE 1,000 MG/10 ML DISP.SYRIN IV ONE (06:00)
--- NOTE | 2021-04-27 06:00 | NUR ---
RT AT BEDSIDE
[2021-04-27] MEDS ORDERED: ALBUTEROL FS 2.5 MG/3 ML VIAL.NEB ONE (06:01)
[2021-04-27] MEDS ORDERED: INSULIN REGULAR, HUMAN 100 UNIT/ML 10 ML VIAL ONE (06:05)
[2021-04-27] MEDS ORDERED: INSULIN REGULAR, HUMAN 100 UNIT/ML 10 ML VIAL IV ONE (06:30)
--- NOTE | 2021-04-27 06:40 | NUR ---
COVID PCR COLLECTED AND SENT TO LAB
--- NOTE | 2021-04-27 10:55 | NUR ---
GOT BED 110
[2021-04-27] MEDS: HEPARIN SODIUM, PORCINE 5000 UNITS/1 ML VIAL SQ SCH ×2 (11:30→21:00)
--- NOTE | 2021-04-27 11:55 | NUR ---
REPORT GIVEN TO WANG STOREY. PT AWAITING TRANSFER TO FLOOR.
--- NOTE | 2021-04-27 12:10 | NUR ---
EDUCATION ADMINISTRATIVE ASSISTANT NOTE RECEIVED PATIENT FROM ER WITH DX FLUIDS OVER LOAD AND NSTEMI UNDER CARE IRON GARCÍA RN MANAGER FITNESS , ALERT ORIENTED , PLACED ON TELE SR HR 91 RT HAND IV HL INTACT AND FLUSHED WELL . LT UPPER ARM AV FISTULA WITH BRUIT SOUND NOTED , , A,LL NEEDS ATTENDED , PLAN OF CARE DISCUSSED WITH PATIENT , BED IN LOWEST AND LOCKED POSITION, WITH SLIGHT SOB NOTED, ON 2L NC SATURATION 100%, CALL LIGHT WITHIN REACH , WILL CONT TO MONITOR CLOSELY, BELONGING CHECKED BY DESULPHURING OPERATOR
[2021-04-27] MEDS: SEVELAMER CARBONATE 800 MG TABLET PO SCH ×2 (12:31→17:36)
--- NOTE | 2021-04-27 12:41 | NUR ---
NURSE NOTE. PATIENT REFUSED HEPARIN. PATIENT STATE "I WILL BLEED FOR DAYS IF I GET HEPARIN." WILL CONTINUE TO MONITOR.
[2021-04-27 14:34] VITALS: BP 178/98
--- NOTE | 2021-04-27 14:56 | NUR ---
PATIENT UNABLE TO RECALL WHICH VACCINE WAS RECEIVED. Addendum: 04/27/21 at 1457 by SONDRA US RN Amended: Links added.
--- NOTE | 2021-04-27 14:56 | NUR ---
FINANCIAL REPRESENTATIVE NOTE CALLED TO IRON GARCÍA RN EVENT SECURITY OFFICER BP 178/77 ORDERED FOR NOW LABETALOL. CARDIZEM AND HYDRALAZINE , INFORMED THAT PATIENT TAKING THESE MEDS FROM HOME ,ORDER CARRIED OUT
[2021-04-27] MEDS ORDERED: NIFEdipine XL (30MG) 30 MG TAB PO SCH (15:00)
[2021-04-27] MEDS ORDERED: hydrALAZINE HCL 25 MG TABLET PO SCH (15:05)
[2021-04-27] MEDS ORDERED: LIDOCAINE /MPF 1% VIAL 5 ML VIAL IJ ONE (16:30)
--- NOTE | 2021-04-27 16:45 | NUR ---
INVESTMENT CONSULTANT NOTE PER PATIENT STATED THAT HAVING 75 MG BENADRYL PO DURING HD Q1 HOUR PRN FOR ITCHING, AND LIDOCAIN FOR AV FISTULA CALLED TO IRON GARCÍA RN GEOSPATIAL APPLICATIONS DEVELOPER OK TO ORDER,
[2021-04-27] MEDS ORDERED: diphenhydrAMINE HCL 25 MG CAPSULE PO PRN ×2 (17:00→17:30)
[2021-04-27] MEDS ORDERED: ALBUTEROL FS 2.5 MG/3 ML VIAL.NEB IH PRN (18:00)
[2021-04-27] MEDS ORDERED: SEVELAMER CARBONATE 800 MG TABLET PO SCH (18:00)
[2021-04-27] MEDS: diphenhydrAMINE HCL 50 MG/ML VIAL IV PRN ×2 (18:10→19:13)
--- NOTE | 2021-04-27 18:43 | NUR ---
NURSE CLOSING NOTE. PTIENT WAS TRANSFER FROM ED. ADMITTING DX: FLUID OVERLOAD AND NSTEMI. PATIENT ALLERGIC TO PENICILLIN AND VANCOMYCIN. RAPID COVID IS NEGATIVE AND PENDING PCR. A/OX3. IV ON RIGHT HAND 20G. LEFT AV SHUNT. PATIENT IS AMBULATORY. POTASSIUM IS 6.4. PATIENT IS GETTING DIALYSIS. WILL REASSESS POST DIALYSIS. SAFETY MEASURE IN PLACE. BED ON THE LOWEST POSITION. HOB ELEVATED. CALL LIGHT WITHIN REACH. WILL CONTINUE TO MONITOR AND GIVE REPORT TO ON COMING NURSE.
--- NOTE | 2021-04-27 19:30 | NUR ---
RN NOTE PATIENT ALERT AND ORIENTED X3, ABLE TO MAKE NEEDS KNOWN. ON O2 2L VIA NASAL CANNULA, NO SIGNS OF SOB AT THIS TIME. DENIES ANY PAIN OR DISCOMFORT. ONGOING DIALYSIS AT THIS TIME ON LEFT AV SHUNT, TOLERATING WELL. IV ACCESS ON RIGHT HAND #20 PATENT AND INTACT. BED LOCKED AND IN LOWEST POSITION. CALL LIGHT WITHIN REACH. ALL NEEDS ANTICIPATED.
[2021-04-27 20:00] VITALS: BP 174/96
[2021-04-27] MEDS: LAMIVUDINE (150MG) 150 MG TABLET PO SCH (20:12)
[2021-04-27] MEDS: hydrALAZINE HCL 25 MG TABLET PO SCH (20:13)
[2021-04-27] MEDS: LABETALOL HCL (100MG) 100 MG TABLET PO SCH (20:13)
[2021-04-27] MEDS: RALTEGRAVIR POTASSIUM 400 MG TABLET PO SCH (20:13)
--- NOTE | 2021-04-27 20:30 | NUR ---
RN NOTE PATIENT COMPLAINING OF COUGH AND REQUESTING FOR COUGH SYRUP. ALSO NOTED WITH BLOODY SPUTUM. CHARITO CONRAD MADE AWARE WITH NEW ORDERS NOTED AND CARRIED OUT. HEPARIN HELD DUE TO BLOODY SPUTUM AND PATIENT REFUSING MED.
--- NOTE | 2021-04-27 20:52 | NUR ---
RN NOTE PATIENT COMPLETED DIALYSIS AT THIS TIME, TOLERATED WELL. 5L REMOVED.
[2021-04-27] MEDS ORDERED: LABETALOL HCL (100MG) 100 MG TABLET PO SCH (21:00)
[2021-04-27] MEDS: GUAIFENESIN/CODEINE 10 ML UDC PO PRN (21:11)
[2021-04-28] VITALS (7 sets, daily range): BP systolic 142–174; BP diastolic 86–108
--- NOTE | 2021-04-28 | NUR ---
RN NOTE PATIENT REFUSED 0000 VITAL SIGNS. RISKS AND BENEFITS EXPLAINED, STILL STRONGLY REFUSED.
[2021-04-28] MEDS: GUAIFENESIN/CODEINE 10 ML UDC PO PRN ×3 (04:15→19:32)
--- NOTE | 2021-04-28 04:42 | NUR ---
RN NOTE PATIENT COMPLAINING OF MOD-SEVERE PAIN GENERALIZED BODY AND HEADACHE. NOTIFIED CHARITO CONRAD WITH NEW ORDERS FOR NORCO 10/325MG Q6H PRN NOTED AND CARRIED OUT.
[2021-04-28] MEDS: HYDROCODONE/APAP 10/325MG TABLET PO PRN ×3 (04:52→21:14)
--- NOTE | 2021-04-28 06:44 | NUR ---
RN NOTE PATIENT ALERT AND ORIENTED X3. ON O2 2L VIA NASAL CANNULA, NO SOB NOTED. DENIES ANY PAIN OR DISCOMFORT. IV ACCESS ON RIGHT HAND #20 PATENT AND INTACT. ALL NEEDS ATTENDED PROMPTLY. BED LOCKED AND IN LOWEST POSITION. CALL LIGHT WITHIN REACH. WILL ENDORSE TO AM SHIFT.
[2021-04-28] MEDS: PANTOPRAZOLE 40 MG TABLET.DR PO SCH (07:56)
[2021-04-28] MEDS: SEVELAMER CARBONATE 800 MG TABLET PO SCH ×3 (07:56→17:02)
--- NOTE | 2021-04-28 08:24 | NUR ---
RN MORNING NOTE PT IS LYING IN BED AND IS ALERT AND ORIENTED X3. PT IS ON 2L O2 VIA NASAL CANNULA, NO SOB, NO SIGNS OF UNLABORED BREATHING NOTED. PT DENIES PAIN OR DISCOMFORT. IV ACCESS IS ON RIGHT HAND #20 FLUSHED, PATENT AND INTACT. BED IS LOCKED IN LOWEST POSITION X3 BED RAILS UP. CALL LIGHT IS WITHIN REACH. WILL CONTINUE TO MONITOR AND ANTICIPATE ANY AND ALL NEEDS.
[2021-04-28] MEDS: ASCORBIC ACID 500 MG TABLET PO SCH (08:49)
[2021-04-28] MEDS: LAMIVUDINE (150MG) 150 MG TABLET PO SCH (08:49)
[2021-04-28] MEDS: MULTIVIT W/MINERALS 1 TAB TABLET PO SCH (08:49)
[2021-04-28] MEDS: LISINOPRIL (20MG) 20 MG TABLET PO SCH (08:49)
[2021-04-28] MEDS: NIFEdipine XL (30MG) 30 MG TAB PO SCH (08:50)
[2021-04-28] MEDS: LABETALOL HCL (100MG) 100 MG TABLET PO SCH ×2 (08:50→21:13)
[2021-04-28] MEDS: ASPIRIN 81 MG TAB.CHEW PO SCH (08:50)
[2021-04-28] MEDS: hydrALAZINE HCL 25 MG TABLET PO SCH ×3 (08:51→17:02)
[2021-04-28] MEDS: RALTEGRAVIR POTASSIUM 400 MG TABLET PO SCH ×2 (08:51→17:02)
[2021-04-28] MEDS: MINOXIDIL (2.5MG) 2.5 MG TABLET PO SCH (08:51)
[2021-04-28] MEDS: HEPARIN SODIUM, PORCINE 5000 UNITS/1 ML VIAL SQ SCH ×2 (08:52→21:00)
--- NOTE | 2021-04-28 09:30 | NUR ---
RN NOTES DUE MEDS GIVEN
[2021-04-28] MEDS ORDERED: CEFEPIME 2 GM in IV D5W 100 ML IV ONE (10:00)
[2021-04-28] MEDS ORDERED: IV NS 0.9% 250 ML IV PRN (10:30)
--- NOTE | 2021-04-28 12:58 | NUR ---
RN NOTES PER CHARGE NURSE SOON, SHE INFORMED DR. URIBE FOR THORACENTESIS TO BE DONE NATI AND HE SAID OK.
[2021-04-28] MEDS: EPOETIN ALFA (10,000 UNIT) 10,000 UNIT/ML VIAL IV SCH (15:19)
[2021-04-28] MEDS ORDERED: diphenhydrAMINE HCL 25 MG CAPSULE PO PRN (17:00)
--- NOTE | 2021-04-28 18:37 | NUR ---
RN CLOSING NOTE PT IS LYING AND RESTING IN BED. PT IS ON 2L 02 VIA NC WITH NO SIGNS OF LABORED BREATHING/RESPIRATORY DISTRESS ETC. PT IS AOX3. NO HD TODAY. PT HAD RIGHT HAND 20G AND PULLED IT OUT. MIDLINE WAS LATER PLACED IN LISE 18G @1830 PATENT AND INTACT WITH NO SIGNS OF INFILTRATION. CONSULT FOR THORACENTESIS WAS SIGNED TODAY AND IN CHART. ULTRASOUND GUIDED THORACENTESIS NOT DONE DUE TO PT REFUSING STAT PT/INR LAB DRAW. BED IS LOCKED IN THE LOWEST POSITION X2 GUARD RAILS RAISED, CALL LIGHT IS WITHIN REACH, ALL HOSPITAL SAFETY PRECAUTIONS ARE IN PLACE. ALL PATIENTS NEEDS WERE MET AND PATIENT REMAINED STABLE THROUGHOUT SHIFT. WILL ENDORSE TO FIELD EDUCATION COORDINATOR RN.
--- NOTE | 2021-04-28 19:15 | NUR ---
TELE/RN OPENING NOTE RECEIVED PATIENT RESTING IN BED. AWAKE, ALERT AND ORIENTED X 3. ABLE TO MAKE NEEDS KNOWN. DENIES PAIN AT THIS TIME. C/O PRODUCTIVE COUGH REQUESTING COUGH MEDICATION. WILL ADMINISTER PER ORDERS. CONTINUES ON 2L O2 VIA NC WITH NO S/SX OF RESPIRATORY DISTRESS NOTED. IV ACCESS TO RIGHT UPPER ARM MIDLINE #18G INTACT, PATENT AND SALINE LOCKED. LEFT AV SHUNT INTACT WITH POSITIVE BRUIT AND THRILL. CALL LIGHT WITHIN REACH. ASPIRATION, FALL AND SAFETY PRECAUTIONS MAINTAINED. WILL CONTINUE TO MONITOR.
--- NOTE | 2021-04-28 20:45 | NUR ---
TELE/RN NOTE PATIENT TRANSFERRED TO 3W ROOM 320-1 WITH ACLS PROTOCOL. REPORT GIVEN TO ANGELITA WHITMORE VERENICE.
--- NOTE | 2021-04-28 20:55 | NUR ---
3W TRANSFER MEDICAL SUPERINTENDENT NOTE RECEIVED REPORT FROM TYLER STOREY. PT AWAKE, ALERT AND ORIENTED X4;. ABLE TO MAKE NEEDS KNOWN. TOLERATING R/A WELL AT THIS TIME WITH O2 2LP VIA N/C PRN. PRODUCTIVE COUGH WITH CLEAR SPUTUM NOTED. NO S/SX OF RESPIRATORY DISTRESS NOTED. IV LISE MIDLINE #18G INTACT, PATENT AND SALINE LOCKED. LEFT AV SHUNT INTACT WITH POSITIVE BRUIT AND THRILL. CALL LIGHT WITHIN REACH. ASPIRATION, FALL AND SAFETY PRECAUTIONS MAINTAINED. ALL BELONGINGS IN PT'S ROOM. PT IN STABLE CONDITION WITH CONT PLAN OF CARE.
--- NOTE | 2021-04-28 21:14 | NUR ---
OFFICE INSPECTOR NOTE - MEDS PT C/O 01/18 GENERAL PAIN. ADMINISTERED NORCO 10-325MG ORDERED. WILL REASSESS FOR PAIN IN 30 MINUTES. PT PREVIOUSLY NOTED WITH BLOODY SPUTUM; HELD HEPARIN.
--- NOTE | 2021-04-28 21:44 | NUR ---
MINIBUS DRIVER NOTE LENIN BLOOD VIA LISE MIDLINE AND GAVE IT TO LOVE FORENSIC COMPUTER EXAMINER. IV LINE PATENT AND INTACT.
[2021-04-28 22:10] LABS: BASOPHILS # (AUTO) 0.1 K/uL (0.0-0.2); BASOPHILS % (AUTO) 1.8 % (0.0-2.0); EOSINOPHILS % (AUTO) 4.2 % (0.0-6.0); HEMATOCRIT 25 % (39-51); HEMOGLOBIN 8.4 g/dL (13.5-17.5); LYMPHOCYTES # (AUTO) 0.8 K/uL (0.8-4.8); LYMPHOCYTES % (AUTO) 17.9 % (20.0-44.0); MEAN CORPUSCULAR HGB CONC 33 g/dl (31.0-36.0); MEAN CORPUSCULAR VOLUME 91 fL (80-96); MONOCYTES # (AUTO) 0.4 K/uL (0.1-1.30); MONOCYTES % (AUTO) 9.3 % (2.0-12.0); NEUTROPHILS % (AUTO) 66.8 % (43.0-81.0); PLATELET COUNT (AUTO) 151 K/uL (150-450); RED BLOOD CELL COUNT(AUTO) 2.78 MIL/uL (4.5-6.0); WHITE BLOOD COUNT (AUTO) 4.4 K/uL (4.3-11.0)
[2021-04-28 22:27] LABS: ALBUMIN 3.2 g/dL (3.4-5.0); BILIRUBIN,TOTAL 0.8 mg/dL (0.2-1.0); CALCIUM, SERUM 9.1 mg/dL (8.5-10.1); PHOSPHORUS 4.5 mg/dL (2.5-4.9); POTASSIUM 6.1 mmol/L (3.5-5.1); TOTAL PROTEIN, SERUM 7.9 g/dL (6.4-8.2)
[2021-04-28 22:35] LABS: THYROID STIMULATING HORMONE 1.81 uIU/mL (0.358-3.74)
[2021-04-28 22:47] LABS: CREATININE 8.7 mg/dL (0.6-1.3)
[2021-04-29] MEDS: GUAIFENESIN/CODEINE 10 ML UDC PO PRN ×2 (02:46→09:36)
--- NOTE | 2021-04-29 02:47 | NUR ---
BRIAR SHOP SUPERVISOR NOTE - SOB PT SITTING UPRIGHT AND NOTED WITH COUGHING AND SOB. REQUESTED RT TO GIVE PT BREATHING TX. ADMINISTERED ROBITUSSIN CODEINE ORDERED. WILL REASSESS PT'S RESPIRATION/SOB AFTER BREATHING TX.
[2021-04-29 04:00] VITALS: BP 163/103
[2021-04-29 04:15] VITALS: BP 163/103
[2021-04-29] MEDS ORDERED: hydrALAZINE HCL IV 20 MG VIAL IV ONE (05:00)
--- NOTE | 2021-04-29 05:03 | NUR ---
RIP SAWYER NOTE - BP BP 153/103 P 96. VESNA PLUSH BRUSHER ORDERED HYDRALAZINE 10MG IVP ONCE. ADMINISTERED MED AND WILL REASSESS BP IN 30 MINUTES. ALL NEEDS MET AT THIS TIME.
--- NOTE | 2021-04-29 05:58 | NUR ---
3W TRANSFER RACING CAR DRIVER NOTE RECEIVED REPORT FROM TYLER STOREY. PT AWAKE, ALERT AND ORIENTED X4;. ABLE TO MAKE NEEDS KNOWN. TOLERATING R/A WELL AT THIS TIME WITH O2 2LP VIA N/C PRN. PRODUCTIVE COUGH WITH CLEAR SPUTUM NOTED. NO S/SX OF RESPIRATORY DISTRESS NOTED. IV LISE MIDLINE #18G INTACT, PATENT AND SALINE LOCKED. LEFT AV SHUNT INTACT WITH POSITIVE BRUIT AND THRILL. CALL LIGHT WITHIN REACH. ASPIRATION, FALL AND SAFETY PRECAUTIONS MAINTAINED. ALL BELONGINGS IN PT'S ROOM. PT IN STABLE CONDITION WITH CONT PLAN OF CARE. Addendum: 04/29/21 at 0602 by ANGELITA MCDONNELL RN ERROR PLS DISREGARD NOTE
--- NOTE | 2021-04-29 05:59 | NUR ---
GIZZARD PULLER CLOSING NOTE PT A/OX4;. ABLE TO MAKE NEEDS KNOWN. TOLERATING O2 2LPM WELL SATTING 96%. NO S/SX OF RESPIRATORY DISTRESS NOTED. EXTERNAL TEMPER MILL ROLLER READS SR AT 96. DENIES PAIN OR DISCOMFORT AT THIS TIME. IV LISE MIDLINE #18G INTACT, PATENT AND SALINE LOCKED. LEFT AV SHUNT INTACT WITH POSITIVE BRUIT AND THRILL. SAFETY MEASURES IN PLACE: BED IN LOWEST LOCKED POSITION, CALL LIGHT WITHIN REACH, SIDE RAILS UPX2. ASPIRATION, FALL AND SAFETY PRECAUTIONS MAINTAINED. PT IN STABLE CONDITION ENDORSE PLAN OF CARE TO ONCOMING MORNING RN.
[2021-04-29 06:40] VITALS: BP 164/99
--- NOTE | 2021-04-29 07:30 | NUR ---
SKI INSTRUCTOR OPENING NOTE RECEIVED PT AWAKE IN BED. A/O X4. PT IS ON 2LPM O2 VIA NC TOLERATING WELL. NO SOB OR S/S OR S/S OF RESPIRATORY DISTRESS NOTED. PT ON EXTERNAL ACADEMIC INTERN READING ST AT 101BPM. PT HAS NO C/O PAIN OR DISCOMFORT AT THIS TIME. IV ACCESS IN LISE #18 MIDLINE, INTACT AND PATENT. PT NOTED WITH LAV SHUNT INTACT. SAFETY PRECAUTIONS MAINTAINED. BED IN LOWEST LOCKED POSITION, HOB ELEVATED, SIDE RAILS UP X2. CALL LIGHT AND TABLE WITHIN REACH. WILL CONTINUE TO MONITOR.
[2021-04-29] MEDS: PANTOPRAZOLE 40 MG TABLET.DR PO SCH (07:41)
[2021-04-29] MEDS: SEVELAMER CARBONATE 800 MG TABLET PO SCH ×3 (07:50→17:34)
[2021-04-29 08:00] VITALS: BP 168/79
[2021-04-29] MEDS: LISINOPRIL (20MG) 20 MG TABLET PO SCH (08:46)
[2021-04-29] MEDS: ASPIRIN 81 MG TAB.CHEW PO SCH (08:47)
[2021-04-29] MEDS: hydrALAZINE HCL 25 MG TABLET PO SCH ×3 (08:47→17:36)
[2021-04-29] MEDS: ASCORBIC ACID 500 MG TABLET PO SCH (08:49)
[2021-04-29] MEDS: MINOXIDIL (2.5MG) 2.5 MG TABLET PO SCH (08:49)
[2021-04-29] MEDS: LABETALOL HCL (100MG) 100 MG TABLET PO SCH ×2 (08:49→22:05)
[2021-04-29] MEDS: MULTIVIT W/MINERALS 1 TAB TABLET PO SCH (08:50)
[2021-04-29] MEDS: NIFEdipine XL (30MG) 30 MG TAB PO SCH (08:50)
[2021-04-29] MEDS: HEPARIN SODIUM, PORCINE 5000 UNITS/1 ML VIAL SQ SCH ×2 (08:51→20:15)
[2021-04-29] MEDS: LAMIVUDINE (150MG) 150 MG TABLET PO SCH (08:53)
[2021-04-29] MEDS: RALTEGRAVIR POTASSIUM 400 MG TABLET PO SCH ×2 (08:53→17:37)
[2021-04-29] MEDS: CEFEPIME 1 GM in IV D5W 50 ML IV SCH (10:00)
--- NOTE | 2021-04-29 13:00 | NUR ---
RN NOTE WITHHELD HYDRALAZINE HCL PO AND SEVELAMER CARBONATE PO AT THIS TIME. PT IS UNDERDOING HD TX. WILL CONTINUE TO MONITOR.
[2021-04-29] MEDS: diphenhydrAMINE HCL 50 MG/ML VIAL IV PRN (13:06)
[2021-04-29] MEDS: LIDOCAINE /MPF 1% VIAL 5 ML VIAL IJ PRN (13:10)
[2021-04-29 15:50] VITALS: BP 159/71
--- NOTE | 2021-04-29 16:00 | NUR ---
RN NOTE PT COMPLETED HD TX AT THIS TIME. PT TOLERATED WELL WITH NO PROBLEMS REPORTED. PER JIG BUILDER DAILY, 4L OUT.
--- NOTE | 2021-04-29 16:49 | NUR ---
RN NOTE PATIENT COMPLETED THORACENTESIS AT THIS TIME. TOLERATED WELL WITH NO COMPLICATIONS.RECEIVED ORDERS FROM DR URIBE FOR STAT CXR,ORDERS READ BACK AND ENTERED. WILL CONTINUE TO MONITOR
--- NOTE | 2021-04-29 18:39 | NUR ---
CARPENTER ASSISTANT CLOSING NOTE PT IS AWAKE IN BED. A/O X4. PT IS ON 2LPM O2 VIA NC TOLERATING WELL. NO SOB OR S/S OR S/S OF RESPIRATORY DISTRESS NOTED. PT ON EXTERNAL DIRECTOR DIVERSITY READING SR AT 90BPM. PT HAS NO C/O PAIN OR DISCOMFORT AT THIS TIME. IV ACCESS IN LISE #18 MIDLINE, INTACT AND PATENT. PT NOTED WITH LAV SHUNT INTACT. ALL NEEDS HAVE BEEN MET. SAFETY PRECAUTIONS MAINTAINED AT ALL TIMES. BED IN LOWEST LOCKED POSITION, HOB ELEVATED, SIDE RAILS UP X2. CALL LIGHT AND TABLE WITHIN REACH. WILL ENDORSE TO ONCOMING NURSE FOR VERENICE.
--- NOTE | 2021-04-29 19:10 | NUR ---
hollow handle bench worker opening notes Received Pt from morning nurse. Pt is sitting in bed comfortably watching TV. Pt is alert and orientedX4. Respiration is normal in 2 L NC. No SOB. No S/S of distress noted. LISE midline# 18 is clean, intact, flushes well and SL. LAV shunt is clean, and intact. Per am nurse Pt had dialysis and thoracentesis today. Tele monitor showed SR HR at 99 bpm. safety precautions is maintained. Bed at low position, brakes locked, side rails upX2, bed alarm is on and call light is within reach. Will continue to monitor.
[2021-04-29 20:00] VITALS: BP 114/55
--- NOTE | 2021-04-29 20:16 | NUR ---
author's agent notes Pt refused heparin/SQ. Explained risks and benefits. Pt keep refusing. Will continue to monitor.
--- NOTE | 2021-04-29 21:35 | NUR ---
key account coordinator notes Find two bottles specimen pleural effusion for cytology at Pt's table side. Called the lab if they received the specimen. Per Lab they have not received the specimen. Pt had the thoracentesis in am. Sent the specimen to lab for cytology 2 bottles with pleural fluids and tubing with attached Pt's name, date and time was delivered to lab. The lab [facility] received the the specimen of 2 bottles pleural fluids and tubing. Charge nurse is aware and informed.
[2021-04-30] VITALS: BP 141/61
--- NOTE | 2021-04-30 04:51 | NUR ---
risk management professional notes Pt refused to have bed clean and change. offered multiple times. Pt keep refusing. Will continue to monitor.
[2021-04-30 04:53] VITALS: BP 128/66
--- NOTE | 2021-04-30 06:50 | NUR ---
director of sustainable design closing notes Pt is sitting in bed comfortably eating breakfast. Pt is alert and orientedX4. Respiration is normal in 2 L NC. No SOB. No S/S of distress noted. VS is stable. Tele monitor showed SR hr at 92. LISE midline# 18 is clean, intact, flushes well and SL. LAV shunt is clean, and intact. safety precautions is maintained. Bed at low position, brakes locked, side rails upX2, bed alarm is on and call light is within reach. Will endorse to morning nurse for VERENICE.
--- NOTE | 2021-04-30 07:35 | NUR ---
TELE/RN OPENING NOTES RECEIVED PATIENT AWAKE ALERT AND ORIENTED X4. PATIENT IS ON ROOM AIR. PATIENT IN NO APPARENT RESPIRATORY DISTRESS NOTED. NO COMPLAINED OF PAIN NOTED AT THIS TIME. TELE MONITOR READING SINUS RHYTHM 99 BPM. WILL CONTINUE TO MONITOR.
[2021-04-30 07:39] LABS: CREATININE 7.8 mg/dL (0.6-1.3); POTASSIUM 6.7 mmol/L (3.5-5.1)
[2021-04-30 07:40] LABS: BASOPHILS % (AUTO) 1.2 % (0.0-2.0); EOSINOPHILS % (AUTO) 5.5 % (0.0-6.0); HEMATOCRIT 24 % (39-51); HEMOGLOBIN 7.7 g/dL (13.5-17.5); LYMPHOCYTES # (AUTO) 0.8 K/uL (0.8-4.8); LYMPHOCYTES % (AUTO) 20.2 % (20.0-44.0); MEAN CORPUSCULAR HGB CONC 33 g/dl (31.0-36.0); MEAN CORPUSCULAR VOLUME 93 fL (80-96); MONOCYTES # (AUTO) 0.4 K/uL (0.1-1.30); MONOCYTES % (AUTO) 9.8 % (2.0-12.0); NEUTROPHILS # (AUTO) 2.5 K/uL (1.8-8.9); NEUTROPHILS % (AUTO) 63.3 % (43.0-81.0); PLATELET COUNT (AUTO) 156 K/uL (150-450); RED BLOOD CELL COUNT(AUTO) 2.56 MIL/uL (4.5-6.0)
[2021-04-30 08:00] VITALS: BP 135/85
[2021-04-30] MEDS: MULTIVIT W/MINERALS 1 TAB TABLET PO SCH (08:48)
[2021-04-30] MEDS: PANTOPRAZOLE 40 MG TABLET.DR PO SCH (08:48)
[2021-04-30] MEDS: ASPIRIN 81 MG TAB.CHEW PO SCH (08:49)
[2021-04-30] MEDS: SEVELAMER CARBONATE 800 MG TABLET PO SCH ×3 (08:49→17:32)
[2021-04-30] MEDS: ASCORBIC ACID 500 MG TABLET PO SCH (08:49)
[2021-04-30] MEDS: RALTEGRAVIR POTASSIUM 400 MG TABLET PO SCH ×2 (08:52→17:32)
[2021-04-30] MEDS: LAMIVUDINE (150MG) 150 MG TABLET PO SCH (08:52)
[2021-04-30] MEDS: HEPARIN SODIUM, PORCINE 5000 UNITS/1 ML VIAL SQ SCH ×2 (08:54→21:00)
--- NOTE | 2021-04-30 08:54 | NUR ---
RN NOTE HGB 7.7 HCT 24 HEPARIN 5000 UNITS NOT ADMINISTERED WILL CONTINUE TO MONITOR.
[2021-04-30] MEDS ORDERED: CLONIDINE HCL 0.3 MG/24H PTWK 1 EA PATCH TD SCH (09:00)
[2021-04-30] MEDS: LABETALOL HCL (100MG) 100 MG TABLET PO SCH ×2 (09:00→21:10)
[2021-04-30] MEDS: LISINOPRIL (20MG) 20 MG TABLET PO SCH (09:00)
[2021-04-30] MEDS: hydrALAZINE HCL 25 MG TABLET PO SCH ×3 (09:00→17:32)
[2021-04-30] MEDS: NIFEdipine XL (30MG) 30 MG TAB PO SCH (09:00)
[2021-04-30] MEDS: MINOXIDIL (2.5MG) 2.5 MG TABLET PO SCH (09:00)
--- NOTE | 2021-04-30 09:00 | NUR ---
TELE/RN NOTES PATIENT IS FOR HEMODIALYSIS MORNING BLOOD PRESSURE MEDICATION WAS ON HOLD. WILL CONTINUE TO MONITOR.
[2021-04-30] MEDS: CEFEPIME 1 GM in IV D5W 50 ML IV SCH (10:25)
--- NOTE | 2021-04-30 10:32 | NUR ---
RN NOTES PATIENT REQUESTED TO TAKE CEFEPIME IV ANTIBIOTIC AFTER HEMODIALYSIS.
[2021-04-30] MEDS: LIDOCAINE /MPF 1% VIAL 5 ML VIAL IJ PRN (11:15)
[2021-04-30] MEDS: diphenhydrAMINE HCL 50 MG/ML VIAL IV PRN (11:38)
[2021-04-30] MEDS: GUAIFENESIN/CODEINE 10 ML UDC PO PRN ×2 (11:38→21:37)
[2021-04-30 12:01] VITALS: BP 152/93
[2021-04-30] MEDS: EPOETIN ALFA (10,000 UNIT) 10,000 UNIT/ML VIAL IV SCH (15:15)
[2021-04-30 16:00] VITALS: BP 144/72
[2021-04-30] MEDS: HYDROCODONE/APAP 10/325MG TABLET PO PRN (18:11)
--- NOTE | 2021-04-30 19:12 | NUR ---
MS/RN CLOSING NOTES PATIENT IS ON BED AWAKE ALERT AND ORIENTED X4. PATIENT IS ON ROOM AIR. PATIENT IN NO APPARENT RESPIRATORY DISTRESS NOTED. NO COMPLAINED OF PAIN NOTED AT THIS TIME. SEEN AND EXAMINED BY MD WITH ORDERS MADE AND CARRIED OUT. ALL DUE MEDICATIONS WAS GIVEN. IV ACCESS AT RIGHT UPPER ARM MIDLINE #18G PATENT AND INTACT. SAFETY PRECAUTIONS WAS IN PLACED. BED IN LOWEST POSITION AND LOCKED. SIDERAILS UP X2. CALL LIGHT WITHIN REACH. HEMODIALYSIS WAS DONE TODAY 3750 OUTPUT. WILL ENDORSED TO TRANSMITTER TESTER FOR VERENICE.
--- NOTE | 2021-04-30 19:39 | NUR ---
MS RN OPENING NOTES: RECEIVED PATIENT AWAKE IN BED, BED IN LOW POSITION, CALL LIGHTS WITHIN REACH, NO COMPLAIN OF PAIN AND DISCOMFORT AT THIS TIME, PATIENT IS A/O X4 ABLE TO EXPRESS NEEDS, WITH IV LINE AT RUC #18 AND LAV SHUNT, ON RA NO SOB NOTED, PATIENT KEPT CLEAN AND DRY, ALL NEEDS MET, WILL CONTINUE TO MONITOR.
[2021-04-30 20:00] VITALS: BP 145/87
--- NOTE | 2021-04-30 21:11 | NUR ---
RN NOTES: HEPARIN SODIUM PORCINE 5000U NOT GIVEN PER DR. LEDEZMA FOR NOW DUE TO LOW HGB, HCT.
--- NOTE | 2021-05-01 07:24 | NUR ---
RN CLOSING NOTES: PATIENT WAS AWAKE IN BED,A/O X4 NO COMPLAIN OF PAINA ND DISCOMFORT, ON RA NO SOB NOTED, BED IN LOW POSITION, CALL LIGHTS WITHIN REACH, ALL NEEDS MET, ENDORSE TO INCOMING SHIFT.
[2021-05-01 07:28] LABS: EOSINOPHILS % (AUTO) 5.6 % (0.0-6.0); HEMATOCRIT 23 % (39-51); HEMOGLOBIN 7.7 g/dL (13.5-17.5); LYMPHOCYTES # (AUTO) 0.8 K/uL (0.8-4.8); LYMPHOCYTES % (AUTO) 22.4 % (20.0-44.0); MEAN CORPUSCULAR HGB CONC 33 g/dl (31.0-36.0); MEAN CORPUSCULAR VOLUME 92 fL (80-96); MONOCYTES # (AUTO) 0.6 K/uL (0.1-1.30); MONOCYTES % (AUTO) 15.2 % (2.0-12.0); NEUTROPHILS # (AUTO) 2.1 K/uL (1.8-8.9); NEUTROPHILS % (AUTO) 55.8 % (43.0-81.0); PLATELET COUNT (AUTO) 167 K/uL (150-450); RED BLOOD CELL COUNT(AUTO) 2.54 MIL/uL (4.5-6.0); WHITE BLOOD COUNT (AUTO) 3.7 K/uL (4.3-11.0)
[2021-05-01] MEDS: PANTOPRAZOLE 40 MG TABLET.DR PO SCH (07:54)
[2021-05-01 08:00] VITALS: BP 167/101
[2021-05-01 08:10] LABS: CALCIUM, SERUM 8.6 mg/dL (8.5-10.1); CREATININE 7.3 mg/dL (0.6-1.3); POTASSIUM 5.6 mmol/L (3.5-5.1)
[2021-05-01] MEDS: MULTIVIT W/MINERALS 1 TAB TABLET PO SCH (08:43)
[2021-05-01] MEDS: ASCORBIC ACID 500 MG TABLET PO SCH (08:44)
[2021-05-01] MEDS: MINOXIDIL (2.5MG) 2.5 MG TABLET PO SCH (08:44)
[2021-05-01] MEDS: ASPIRIN 81 MG TAB.CHEW PO SCH (08:44)
[2021-05-01] MEDS: hydrALAZINE HCL 25 MG TABLET PO SCH ×3 (08:45→16:31)
[2021-05-01] MEDS: LISINOPRIL (20MG) 20 MG TABLET PO SCH (08:46)
[2021-05-01] MEDS: LABETALOL HCL (100MG) 100 MG TABLET PO SCH ×2 (08:47→21:01)
[2021-05-01] MEDS: SEVELAMER CARBONATE 800 MG TABLET PO SCH ×3 (08:50→17:42)
[2021-05-01] MEDS: NIFEdipine XL (30MG) 30 MG TAB PO SCH (08:52)
[2021-05-01] MEDS: RALTEGRAVIR POTASSIUM 400 MG TABLET PO SCH ×2 (08:55→16:31)
[2021-05-01] MEDS: LAMIVUDINE (150MG) 150 MG TABLET PO SCH (08:55)
[2021-05-01] MEDS: HEPARIN SODIUM, PORCINE 5000 UNITS/1 ML VIAL SQ SCH ×2 (09:00→21:00)
--- NOTE | 2021-05-01 09:02 | NUR ---
MS RN OPENING NOTE RECEIVED PATIENT IN BED SLEEPING CALM AND COMFORTABLY, NO RESPIRATORY DISTRESS NOTED, NO SHORTNESS OF BREATH NOTED. NO PAIN, NO FACIAL GRIMACING NOTED.PATIENT ALERT AND ORIENTED X4. IV SITE ON THE LISE MIDLINE INTACT , NO BLEEDING, NO REDNESS, NO SWELLING NOTED. AV SHUNT INTACT, + BRUIT AND THRILL NOTED ON LEFT ARM. PATIENT AMBULATORY. SAFETY PRECAUTIONS IN PLACE: CALL LIGHT WITHIN REACH . BED IN LOW LOCKED POSITION, SIDE RAILS UPB X2, WILL CONTINUE TO MONITOR.
[2021-05-01] MEDS: CEFEPIME 1 GM in IV D5W 50 ML IV SCH (09:41)
[2021-05-01] MEDS: GUAIFENESIN/CODEINE 10 ML UDC PO PRN (15:31)
--- NOTE | 2021-05-01 15:35 | NUR ---
MS RN NOTE: PATIENT NOTED WITH COUGHING AND COMPLAIN OF COUGH. PRN MEDICATION FOR COUGH ADMINISTERED ORDERED.
[2021-05-01 16:00] VITALS: BP 123/60
--- NOTE | 2021-05-01 18:36 | NUR ---
MS RALEIGH CLOSING NOTE PATIENT SITTING IN BED CALM AND COMFORTABLE, PLAYING GAMES ON HIS CELL PHONE, NO RESPIRATORY DISTRESS NOTED, NO SHORTNESS OF BREATH NOTED. NO PAIN, NO FACIAL GRIMACING NOTED.PATIENT ALERT AND ORIENTED X4. IV SITE ON THE LISE MIDLINE INTACT , NO BLEEDING, NO REDNESS, NO SWELLING NOTED. AV SHUNT INTACT, + BRUIT AND THRILL NOTED ON LEFT ARM. PATIENT AMBULATORY. SAFETY PRECAUTIONS IN PLACE: CALL LIGHT WITHIN REACH . BED IN LOW LOCKED POSITION, SIDE RAILS UPB X2, DUE MEDS GIVEN ORDERED. ALL NEEDS ATTENDED AND MET .WILL ENDORSE TO ONCOMING SHIFT FOR VERENICE. Addendum: 05/01/21 at 1950 by STEVE BRYANT RN MS RN OPENING NOTES RECEIVED PATIENT IN BED, AWAKE. AOx4. ABLE TO MAKE NEEDS KNOWN. ON ROOM AIR AND TOLERATING WELL. NO SOB NOTED. NO S/SX OF RESPIRATORY DISTRESS. IV ACCESS IN LISE MIDLINE #18. IV IS INTACT, PATENT AND FLUSHING WELL. AV SHUNT INTACT. SAFETY PRECAUTIONS IN PLACE: BED IN LOWEST, LOCKED POSITION, SIDE RAILS UP X 2, BRAKES ON. CALL LIGHT AND TABLE WITHIN REACH. WILL CONTINUE TO MONITOR. Addendum: 05/02/21 at 0654 by STEVE BRYANT RN PLEASE DISREGARD ADDENDUM WAS ADDED BY ACCIDENT.
--- NOTE | 2021-05-01 19:50 | NUR ---
MS RN OPENING NOTES RECEIVED PATIENT IN BED, AWAKE. AOx4. ABLE TO MAKE NEEDS KNOWN. ON ROOM AIR AND TOLERATING WELL. NO SOB NOTED. NO S/SX OF RESPIRATORY DISTRESS. IV ACCESS IN LISE MIDLINE #18. IV IS INTACT, PATENT AND FLUSHING WELL. AV SHUNT INTACT. SAFETY PRECAUTIONS IN PLACE: BED IN LOWEST, LOCKED POSITION, SIDE RAILS UP X 2, BRAKES ON. CALL LIGHT AND TABLE WITHIN REACH. WILL CONTINUE TO MONITOR.
[2021-05-01 20:00] VITALS: BP 125/72
[2021-05-02] MEDS: GUAIFENESIN/CODEINE 10 ML UDC PO PRN (02:30)
--- NOTE | 2021-05-02 02:35 | NUR ---
ADMINISTERED ROBITUSSIN/CODEINE PER PT REQUEST. WILL CONTINUE TO MONITOR.
[2021-05-02] MEDS: HYDROCODONE/APAP 10/325MG TABLET PO PRN (04:42)
--- NOTE | 2021-05-02 04:43 | NUR ---
ADMINISTERED NORCO PER MD ORDER FOR PAIN. WILL CONTINUE TO MONITOR.
--- NOTE | 2021-05-02 06:55 | NUR ---
MS RN CLOSING NOTES PATIENT SITTING IN BED, AWAKE. AOx4. ABLE TO MAKE NEEDS KNOWN. ON ROOM AIR AND TOLERATING WELL. NO SOB NOTED. NO S/SX OF RESPIRATORY DISTRESS. IV ACCESS IN LISE MIDLINE #18. IV IS INTACT, PATENT AND FLUSHING WELL. AV SHUNT INTACT. ALL NEEDS MET. PT KEPT CLEAN AND DRY. SAFETY PRECAUTIONS IN PLACE: BED IN LOWEST, LOCKED POSITION, SIDE RAILS UP X 2, BRAKES ON. CALL LIGHT AND TABLE WITHIN REACH. WILL ENDORSE TO ONCOMING SHIFT.
[2021-05-02 07:18] LABS: BASOPHILS % (AUTO) 0.4 % (0.0-2.0); EOSINOPHILS % (AUTO) 6.1 % (0.0-6.0); HEMATOCRIT 24 % (39-51); LYMPHOCYTES % (AUTO) 28.9 % (20.0-44.0); MEAN CORPUSCULAR HGB CONC 33 g/dl (31.0-36.0); MEAN CORPUSCULAR VOLUME 93 fL (80-96); MONOCYTES # (AUTO) 0.5 K/uL (0.1-1.30); MONOCYTES % (AUTO) 14.8 % (2.0-12.0); NEUTROPHILS # (AUTO) 1.8 K/uL (1.8-8.9); NEUTROPHILS % (AUTO) 49.8 % (43.0-81.0); PLATELET COUNT (AUTO) 190 K/uL (150-450); RED BLOOD CELL COUNT(AUTO) 2.64 MIL/uL (4.5-6.0); WHITE BLOOD COUNT (AUTO) 3.6 K/uL (4.3-11.0)
[2021-05-02 07:19] LABS: POTASSIUM 5.9 mmol/L (3.5-5.1)
[2021-05-02] MEDS: PANTOPRAZOLE 40 MG TABLET.DR PO SCH (07:30)
--- NOTE | 2021-05-02 07:41 | NUR ---
RN OPENING NOTE PT AWAKE IN BED RESTING. ON RA WITH NO SOB OR RESPIRATORY DISTRESS PRESENT. A/O X4 AND KINYARWANDA SPEAKING. NO MEDICAL LABORATORY SPECIALIST PRESENT. NO EDEMA PRESENT. SELF AMBULATORY WITH BATHROOM PRIVILEGES. ANURIC. SKIN IS INTACT. MIDLINE PRESENT ON LISE AND FLUSHES WELL. SALINE LOCKED. L AV SHUNT PRESENT FOR HD. NO BLOOD DRAWS/ BP ON L ARM. LABS AND ORDERS REVIEWED. SAFETY MEASURES IN PLACE. SIDE RAILS RAISED. BED LOWERED. CALL LIGHT WITHIN REACH. WILL CONTINUE TO MONITOR.
[2021-05-02] MEDS: SEVELAMER CARBONATE 800 MG TABLET PO SCH ×2 (08:00→12:35)
[2021-05-02] MEDS: HEPARIN SODIUM, PORCINE 5000 UNITS/1 ML VIAL SQ SCH (09:00)
[2021-05-02] MEDS: ASPIRIN 81 MG TAB.CHEW PO SCH (09:31)
[2021-05-02] MEDS: LAMIVUDINE (150MG) 150 MG TABLET PO SCH (09:32)
[2021-05-02] MEDS: RALTEGRAVIR POTASSIUM 400 MG TABLET PO SCH (09:32)
[2021-05-02] MEDS: CEFEPIME 1 GM in IV D5W 50 ML IV SCH (09:33)
[2021-05-02] MEDS: MULTIVIT W/MINERALS 1 TAB TABLET PO SCH (09:33)
[2021-05-02] MEDS: ASCORBIC ACID 500 MG TABLET PO SCH (09:33)
[2021-05-02] MEDS: MINOXIDIL (2.5MG) 2.5 MG TABLET PO SCH (09:34)
[2021-05-02] MEDS: LISINOPRIL (20MG) 20 MG TABLET PO SCH (09:34)
[2021-05-02] MEDS: NIFEdipine XL (30MG) 30 MG TAB PO SCH (09:35)
[2021-05-02] MEDS: hydrALAZINE HCL 25 MG TABLET PO SCH ×2 (09:35→12:35)
[2021-05-02 09:37] VITALS: BP 128/80
[2021-05-02] MEDS: LABETALOL HCL (100MG) 100 MG TABLET PO SCH (09:37)
[2021-05-02] MEDS ORDERED: SEVE800T7 PO (10:12)
[2021-05-02] MEDS ORDERED: HYDR-4076 PO (10:12)
[2021-05-02] MEDS ORDERED: EPOE1VIA7 IV (10:12)
[2021-05-02] MEDS: LIDOCAINE /MPF 1% VIAL 5 ML VIAL IJ PRN (10:41)
[2021-05-02] MEDS: diphenhydrAMINE HCL 50 MG/ML VIAL IV PRN (11:08)
[2021-05-02] MEDS: EPOETIN ALFA (10,000 UNIT) 10,000 UNIT/ML VIAL IV SCH (15:00)
--- NOTE | 2021-05-02 16:25 | NUR ---
WEB APPLICATIONS DEVELOPER NOTE PT DISCHARGED TO [facility]. REPORT GIVEN TO NURSE AND ACCEPTED BY FACILITY. V/S CHECKED. PT IN STABLE CONDITION. IV LINE REMOVED. ID BANDS REMOVED. EXITCARE EDUCATION UTILIZED AND GIVEN TO EMT. BELONGINGS CHECKED AND GIVEN TO EMT. PRESCRIPTIONS CHECKED AND REPORTED TO NURSE. MED RECON GIVEN TO EMT. F/U WITH PCP IN 1 WEEK. PT TRANSPORTED VIA GURNEY ACCOMPANIED BY MOVIE OPERATOR.
[2021-05-02] MEDS ORDERED: TENOFOVIR DISOPROXIL FUMARATE 300 MG TABLET PO SCH (21:00)
== END 2021-05-02 16:25 | DRG 280 ==
LOC: ER 03:18 → TELE1 11:03 → MEDSG1 17:20 → TELE1 17:57 → TELE 04-28 20:36 → MED 04-30 14:48
PROVIDERS: ADMIT Nurse Practitioner Acute Care; ATTEND Family Medicine
PROC: 5A1D70Z Performance of Urinary Filtration, Intermittent, Less than 6 Hours Per Day (ICD-10-PCS; principal; 2021-04-27)
PROC: 05H533Z Insertion of Infusion Device into Right Subclavian Vein, Percutaneous Approach (ICD-10-PCS; 2021-04-28)
PROC: B546ZZA Ultrasonography of Right Subclavian Vein, Guidance (ICD-10-PCS; 2021-04-28)
PROC: 0W993ZZ Drainage of Right Pleural Cavity, Percutaneous Approach (ICD-10-PCS; 2021-04-29)
DX: I13.2 Hypertensive heart and chronic kidney disease with heart failure and with stage 5 chronic kidney disease, or end stage renal disease (principal); I21.A1 Myocardial infarction type 2; I50.33 Acute on chronic diastolic (congestive) heart failure; N18.6 End stage renal disease; B19.10 Unspecified viral hepatitis B without hepatic coma; E44.1 Mild protein-calorie malnutrition; J90 Pleural effusion, not elsewhere classified; K74.60 Unspecified cirrhosis of liver; Z99.2 Dependence on renal dialysis; E03.9 Hypothyroidism, unspecified; E87.5 Hyperkalemia; Z86.711 Personal history of pulmonary embolism; Z86.74 Personal history of sudden cardiac arrest; Z88.0 Allergy status to penicillin; Z91.19 Patient's noncompliance with other medical treatment and regimen; D63.8 Anemia in other chronic diseases classified elsewhere; Z20.822 Contact with and (suspected) exposure to COVID-19; E88.09 Other disorders of plasma-protein metabolism, not elsewhere classified; J40 Bronchitis, not specified as acute or chronic; Z79.82 Long term (current) use of aspirin; Z68.24 Body mass index [BMI] 24.0-24.9, adult; R06.03 Acute respiratory distress
CPT/HCPCS: 36415; 71045-TC; 71250-TC; 80048-TC; 80053-TC; 80061-TC; 80076-TC; 82962-TC; 83735-TC; 83880; 84100-TC; 84443-TC; 84484-TC; 85025-TC; 85610-TC; 87070-TC; 87075-TC; 87081-TC; 87102-TC; 89051-TC; 90935-TC; C9803; G0378; J0360; J0692; J0885; J1200; J1644; J1815; J3490; J7030; J7050; J7060; Q0163; U0003